=== PATIENT | female | born 1980 | race Caucasian/White ===

== ENCOUNTER 2024-01-06 21:16 | Emergency (ER) | payer OTHER, SELFPAY ==
[2024-01-06 21:18] VITALS: BP 126/86
--- NOTE | 2024-01-06 21:51 | ED.GENMED ---
History of Present Illness
General
Chief Complaint: Musculo-Skeletal Complaint
Time Seen by Provider: 01/06/24 21:31
History of Present Illness
History of Present Illness:
43-year-old female presents to the emergency department for evaluation of intractable bilateral neck pain ongoing for the past 7 days. Pain was gradual in onset and denies any traumatic injuries provoking the pain. She saw an warehouse specialist
today after having been treated with a steroid taper by urgent care the week prior, orthopedics recommended splinting versus follow-up as well as an outpatient MRI. She presents to the ER hopeful to obtain an MRI. She reports paresthesias of
bilateral upper extremities. No chest pain or shortness of breath.
Review of Systems
Review of Systems
Allergies reviewed?: Yes
All Other Systems: ROS reviewed and negative except as documented in HPI and ROS
Phy Exam
Physical Exam
Physical Exam:
GEN: Well appearing, NAD, WDWN
HEENT: Oral mucosa moist, no scleral icterus. No midline cervical spine tenderness. Normal neck range of motion bilaterally however patient clearly in pain throughout this exam
Cardiac: Regular rate
Lung: No respiratory distress, no tachypnea
MSK: No gross deformity or injuries
Skin: Good color, no pallor or jaundice, no rashes
Neuro: AO x3, moves all extremities freely. Bilateral upper extremity strength is 4 out of 5 in all delarosa, pain is likely the limiting factor. Sensation intact globally
Psych: Calm, cooperative
Course
Orders/Labs/Results
Orders:
Orders
01/06/24 21:50
Acetaminophen [Tylenol] 1,000 mg PO NOW STA
Morphine Sulfate 4 mg IM NOW STA
Vital Signs
Initial and Last Documented VS:
Initial Vital Signs
Temp Pulse Resp BP Pulse Ox
97.7 F 86 24 126/86 100
01/06/24 21:18 01/06/24 21:18 01/06/24 21:18 01/06/24 21:18 01/06/24 21:18
Last Documented Vital Signs
Temp Pulse Resp BP Pulse Ox
97.7 F 77 16 123/85 98
01/06/24 21:18 01/06/24 22:55 01/06/24 22:55 01/06/24 22:55 01/06/24 22:55
MDM/Problems Addressed
MDM/Problems Addressed:
Patient's pain is markedly improved with opiate analgesics. Will prescribe small amount of further opiates and recommend she follow-up for outpatient MRI as planned. Close outpatient spine follow-up encouraged
*Critical Care Note
Total Time (30-74mins, 75-104mins- exclusive of procedures): Not Applicable
ED Attending Note
-
Portions of this chart may have been created with voice recognition software.� Occasional wrong word or��sound alike� substitutions may have occurred due to the inherent limitations of voice recognition software.
Discharge Plan
Departure
Patient Disposition: Home (Routine Discharge)
Date of Disposition: 01/06/24
Time of Disposition: 22:42
Patient with high blood pressure during this ER visit?: No
Discharge Problem:
Cervical radiculopathy
Instructions: Herniated Disc (DC)
Prescriptions:
New
oxycodone 5 mg tablet
5 mg PO Q8H PRN (Reason: Pain) Qty: 10 0RF
Referrals:
Hui Kay MD [Family Provider] -
Nicolas Logan MD [Active] -
Activity Restrictions/Additional Instructions:
Schedule the MRI as planned
Follow up with the above listed pain/spine specialsit
Interventions
Interventions:
*Risk Screen - Suicide Last Done: 01/06/24 21:18
*General Assessment Last Done: 01/06/24 21:51
*Neglect/Abuse Screening Last Done: 01/06/24 21:18
ED- Fall Risk Assessment Last Done: 01/06/24 21:51
*ED COVID-19 Vaccine History Last Done: 01/06/24 21:51
*Nursing Disposition Last Done: 01/06/24 22:55
ED-Musculoskeletal Assessment Last Done: 01/06/24 21:51
Discharge Date and Time
Discharge Date/Time: 01/06/24 22:55
Print Language: MALAGASY
[2024-01-06] MEDS: TYLENOL 1000 MG PO (22:01)
[2024-01-06] MEDS: MORPHINE SULFATE 4 MG IM (22:02)
[2024-01-06 22:55] VITALS: BP 123/85
== END 2024-01-06 22:55 | disposition home or self-care (01) ==
LOC: EMR 21:16
PROVIDERS: EMERGENCY PHYSICIAN Emergency Medicine; FAMILY PHYSICIAN Internal Medicine
DX: M54.12 Radiculopathy, cervical region (principal)
CPT/HCPCS: 99284; 96372

== ENCOUNTER 2024-01-09 03:43 | Inpatient (IN) | payer OTHER, SELFPAY ==
[2024-01-08 21:24] VITALS: BP 155/106
[2024-01-08 21:57] LABS: % Basophils 0.4 % (0-2); % Eosinophils 0.5 % (0-6); % Immature Granulocytes 0.3 % (0-0.5); % Lymphocytes 34.7 % (20.5-51.1); % Monocytes 7.8 % (1.7-9.3); % Neutrophils 56.3 % (42.2-75.2); Absolute Basophils 0.1 10^3/uL (0-0.2); Absolute Eosinophils 0.1 10^3/uL (0-0.7); Absolute Lymphocytes 4.3 10^3/uL (1.2-3.4); Hematocrit 40.4 % (37.0-47.0); Hemoglobin 14.2 g/dL (12.0-16.0); Mean Corp Hgb Conc. 35.1 g/dL (33.0-37.0); Mean Corpuscular Hgb 30.8 pg (27.0-31.0); Mean Corpuscular Volume 87.6 fL (81.0-99.0); Mean Platelet Volume 8.9 fL (7.4-10.4); Nucleated Red Blood Cells % 0 %; Platelet Count 441 10^3/uL (130-400); Red Blood Cell Count 4.61 10^6/uL (4.20-5.40); Red Cell Dist. Width 12.9 % (11.5-14.5); White Blood Cell Count 12.4 10^3/uL (4.8-10.8)
[2024-01-08 22:10] LABS: COVID-19 Antigen Negative (Negative)
[2024-01-08 22:11] LABS: ALT (SGPT) 20 U/L (0-35); AST (SGOT) 27 U/L (14-36); Alkaline Phosphatase 50 U/L (38-126); Blood Urea Nitrogen 14 mg/dl (7-17); Calcium 10.3 mg/dl (8.4-10.2); Carbon Dioxide 30 mmol/L (22-30); Chloride 101 mmol/L (98-107); Glucose 89 mg/dl (70-99); Potassium 3.8 mmol/L (3.5-5.1); Sodium 139 mmol/L (135-145); Total Bilirubin 0.5 mg/dl (0.2-1.3); Total Protein 7.6 g/dl (6.3-8.2); eGFR > 60.00
--- NOTE | 2024-01-08 22:57 | ED.GENMED ---
History of Present Illness
<LILO Diamond - Last Filed: 01/09/24 02:07>
General
Chief Complaint: Musculo-Skeletal Complaint
Source: patient and spouse
Exam Limitations: none
Time Seen by Provider: 01/08/24 22:55
History of Present Illness
History of Present Illness:
This is a 43 year old female that comes in with c/o cough and SOB. Patient was here last night with neck pain and given Oxycodone. Patient had an MRI of her neck today. States that now she can't eat or drink and her states that she can't
get dressed. States that know she developed a cough and is SOB. Denies any fever, chills, chest pain, abd pain, nausea, vomiting, diarrhea, headache, dizziness, urinary burning.
Past History
<LILO Diamond - Last Filed: 01/09/24 02:07>
Past History
ED Past Medical History: Other (Neck pain)
ED Past Surgical History: None
Social History
Tobacco: Smoker
Alcohol: Occasional
Personal:
Living: with family
Review of Systems
<LILO Diamond - Last Filed: 01/09/24 02:07>
Review of Systems
All Other Systems: ROS reviewed and negative except as documented in HPI and ROS
Constitutional: Reports no symptoms; Denies fever or chills
EENT: Reports no symptoms
Respiratory: Reports cough and trouble breathing
Cardiac: Reports no symptoms
ABD/GI: Reports no symptoms; Denies abdominal pain, nausea, vomiting or diarrhea
: Reports no symptoms; Denies dysuria, frequency or urgency
Musculoskeletal: Reports no symptoms
Skin: Reports no symptoms
Neurological: Reports no symptoms; Denies dizzy or headache
Psychiatric: Reports no symptoms
Phy Exam
<LILO Diamond - Last Filed: 01/09/24 02:07>
General Physical Exam
General Presentation: no apparent distress
General age: appears stated age
General Skin: warm and dry
General Habitus: normal
General Mental: alert
General Hydration: appears well hydrated
ENT Exam
ENT Exam: TM's normal, pharynx normal and neck supple
Eye Exam
Eye Exam: EOMI
Cardiovascular Exam
Cardiovascular Exam: regular rate/rhythm, no edema, no murmur and normal peripheral pulses
Pulmonary Exam
Pulmonary Exam: no respiratory distress, no rales, chest non tender, no rhonchi, no wheezing and other (Moist cough noted. Referred breath sounds, with occasional clearing. )
Gastrointestinal Exam
Gastrointestinal Exam: normal bowel sounds, non tender, soft, no organomegaly, no pulsatile mass and non distended
Musculoskeletal Exam
Musculoskeletal Exam: full ROM and no edema
Skin Exam
Skin Exam: normal color, warm/dry, no rash and no petechia
Psychiatric Exam
Psychiatric Exam: normal mood/affect
Course
<LILO Diamond - Last Filed: 01/09/24 02:07>
Orders/Labs/Results
Orders:
Orders
01/08/24 21:30
EKG [Electrocardiogram (*1)] Urgent
Reason for Study: Other
Other Reason for Exam: neck pain
EKG- Treatment ONCE
01/08/24 21:31
Chest [CR Chest - 2 Views ] Urgent
Comment:
Reason For Exam: cough
01/08/24 21:51
CBC/With Diff [Complete Blood Count/With Diff] Urgent
CMP [Comprehensive Metabolic Panel] Urgent
COVID-19 Antigen Urgent
Source: Nasal Swab
HCG, Serum Qualitative Screen Urgent
Comment: ADDED
01/09/24 01:04
CT Chest With Iv Contrast Urgent
Comment:
Reason For Exam: L Chest Mass, Dyspnea
Albuterol Nebs [Ventolin Nebules] 2.5 mg INH R NOW STA
01/09/24 01:05
0.9% Sodium Chloride 1000 ml [Nss] 1,000 ml IV BOLUS
01/09/24 01:08
Test Result ONCE
01/09/24 01:09
Add On- LAB Urgent
Tests Added?: serum qual
01/09/24 01:12
CT Head W/o Iv Contrast Urgent
Comment:
Reason For Exam: Ataxia
01/09/24 02:00
Flush (0.9% Sodium Chloride) [Flush (Nss)] See Dose Instructions IV PER PROTOCOL
01/09/24 02:26
Add On- LAB Urgent
Tests Added?: Pro-BNP
Troponin I Urgent
Abnormal Lab Results
01/08/24
21:51
WBC 12.4 H 10^3/uL
(4.8-10.8)
Plt Count 441 H 10^3/uL
(130-400)
Absolute Neuts (auto) 7.0 H 10^3/uL
(1.4-6.5)
Absolute Lymphs (auto) 4.3 H 10^3/uL
(1.2-3.4)
Absolute Monos (auto) 1.0 H 10^3/uL
(0.1-0.6)
Calcium 10.3 H mg/dl
(8.4-10.2)
01/08/24 21:51
01/08/24 21:51
Leukocytosis, Plt slightly elevated. COVID negative.
Vital Signs
Initial and Last Documented VS:
Initial Vital Signs
Temp Pulse Resp BP Pulse Ox
97.6 F 98 18 155/106 90
01/08/24 21:24 01/08/24 21:24 01/08/24 21:24 01/08/24 21:24 01/08/24 21:24
Last Documented Vital Signs
Temp Pulse Resp BP Pulse Ox
97.6 F 88 20 133/93 91
01/09/24 00:39 01/09/24 01:06 01/09/24 00:00 01/09/24 00:14 01/09/24 01:35
<Tamia Hamilton, - Last Filed: 01/09/24 02:40>
Orders/Labs/Results
Orders:
Orders
01/08/24 21:30
EKG [Electrocardiogram (*1)] Urgent
Reason for Study: Other
Other Reason for Exam: neck pain
EKG- Treatment ONCE
01/08/24 21:31
Chest [CR Chest - 2 Views ] Urgent
Comment:
Reason For Exam: cough
01/08/24 21:51
CBC/With Diff [Complete Blood Count/With Diff] Urgent
CMP [Comprehensive Metabolic Panel] Urgent
COVID-19 Antigen Urgent
Source: Nasal Swab
HCG, Serum Qualitative Screen Urgent
Comment: ADDED
01/09/24 01:04
CT Chest With Iv Contrast Urgent
Comment:
Reason For Exam: L Chest Mass, Dyspnea
Albuterol Nebs [Ventolin Nebules] 2.5 mg INH R NOW STA
01/09/24 01:05
0.9% Sodium Chloride 1000 ml [Nss] 1,000 ml IV BOLUS
01/09/24 01:08
Test Result ONCE
01/09/24 01:09
Add On- LAB Urgent
Tests Added?: serum qual
01/09/24 01:12
CT Head W/o Iv Contrast Urgent
Comment:
Reason For Exam: Ataxia
01/09/24 02:00
Flush (0.9% Sodium Chloride) [Flush (Nss)] See Dose Instructions IV PER PROTOCOL
01/09/24 02:26
Add On- LAB Urgent
Tests Added?: Pro-BNP
Troponin I Urgent
Abnormal Lab Results
01/08/24
21:51
WBC 12.4 H 10^3/uL
(4.8-10.8)
Plt Count 441 H 10^3/uL
(130-400)
Absolute Neuts (auto) 7.0 H 10^3/uL
(1.4-6.5)
Absolute Lymphs (auto) 4.3 H 10^3/uL
(1.2-3.4)
Absolute Monos (auto) 1.0 H 10^3/uL
(0.1-0.6)
Calcium 10.3 H mg/dl
(8.4-10.2)
01/08/24 21:51
01/08/24 21:51
Vital Signs
Initial and Last Documented VS:
Initial Vital Signs
Temp Pulse Resp BP Pulse Ox
97.6 F 98 18 155/106 90
01/08/24 21:24 01/08/24 21:24 01/08/24 21:24 01/08/24 21:24 01/08/24 21:24
Last Documented Vital Signs
Temp Pulse Resp BP Pulse Ox
97.6 F 88 20 133/93 91
01/09/24 00:39 01/09/24 01:06 01/09/24 00:00 01/09/24 00:14 01/09/24 01:35
<LILO Diamond - Last Filed: 01/09/24 02:07>
MDM/Problems Addressed
Differential Diagnosis Includes:
COVID, PNA, Lung mass
MDM/Problems Addressed:
This is a 43 year old female that comes in with wih c/o cough and SOB. states that she was here last night with neck pain and they had the MRI done today. States that she is not able to eat or drink and that she can hardly get
herself dressed. States that now she has a cough and is SOB.
Will get labs and chest x-ray.
Back into see patient and . Explained that she has a lung mass on the left at the left heart boarder. Patient is hypoxic at 89% and place on Oxygen. Will admit patient. Hospitalist notified.
Chronic conditions affecting care:
NA
Acute Exacerbation and/or Progression of Chronic Illness:
NA
<LILO Diamond - Last Filed: 01/09/24 02:07>
*Radiology
Radiology exam reviewed: radiology read reviewed (Chest-Rounded mass like opacity off the left superior margin of the hear, in the region of the lingula. No preivous examinations are available at this institution. If the patent has had previous
imaging of the chest elsewhere, correlation with those exams may be useful. Consider a follow up CT ) and all reviewed NAD by ED Provider (Chest cont- of the chest with intravenous contrast. )
*Pulse Oximetry
Patient hypoxic: yes
Comment: 89% on room air
*EKG
Interpreted by ED Provider?: Yes
Heart Rate: 87
Rate: normal
Rhythm: sinus
[place]: normal axis
Interval: normal interval
QRS Pattern: normal QRS
Ischemia: non-specific ST changes (I, II, V4, V5, V6)
*Overnight Caregiver Interpretation
Rate: normal
Heart Rate: 96
Rhythm: sinus
*Critical Care Note
Total Time (30-74mins, 75-104mins- exclusive of procedures): Not Applicable
ED Attending Note
<LILO Diamond - Last Filed: 01/09/24 02:07>
-
Portions of this chart may have been created with voice recognition software.� Occasional wrong word or��sound alike� substitutions may have occurred due to the inherent limitations of voice recognition software.
<Tamia Hamilton, DO - Last Filed: 01/09/24 02:40>
ED Attending Note
Patient seen and examined by attending physician: Yes
ED Attending Note:
43-year-old woman evaluated in the ED 2 days ago with neck pain, diagnosed with cervical radiculopathy, started on oral steroids returns tonight with continued neck pain with complaints of shortness of breath, intermittent cough that began today.
Noted to be hypoxic initially with pulse ox in the high 80s, low 90s. Improved with nasal cannula oxygen.
Chest x-ray shows large rounded masslike opacity left superior margin of the heart. No evidence of pleural effusion nor CHF.
Labs show mildly elevated white blood cell count which can be attributed to recent oral steroids. Chemistries are unremarkable.
Admitted to hospitalist service for further evaluation of pulmonary mass lesion, concerning for malignancy.
Patient has been evaluated by Dr. Chi, CT head as well as CT of the chest ordered by hospitalist and upon returning from CAT scan patient noted to have recurrent hypoxia, nasal cannula oxygen transition to nonrebreather mask and I been summoned to
the bedside.
43-year-old woman appears her stated age. She is awake and alert, mentating normally, answering questions appropriately.
HEENT: Oral mucosa is moist. No neck vein distention.
Heart is regular rhythm, mildly tachycardic at 110.
Lungs: Very minimal resting tachypnea but overall appears comfortable. Few scattered rhonchi upper lung delarosa otherwise clear to auscultation.
Abdomen is soft and nontender.
Extremities without clubbing or cyanosis no edema. Peripheral pulses are full and equal.
Skin: Moderately tanned sun exposed skin. There is no erythema, no urticaria, no swelling.
Neuro: Awake alert and oriented x 3. No focal neurodeficits.
Hypoxia has improved with nonrebreather mask. Hovers around 89 to 90%.
Overall patient appears comfortable, without significant respiratory distress, able to speak in full sentences and mentating normally.
Will initiate end-tidal CO2. Will check ABG on nonrebreather mask.
Will check BNP, troponin.
CT of the chest results are pending.
Depending on ABG results may consider initiation of BiPAP to improve oxygenation but at this point no indication for urgent intubation.
Discharge Plan
Departure
Patient Disposition: Admit
Date of Disposition: 01/09/24
Time of Disposition: 00:13
Admit to: Telemetry
Presentation/result/management discussed w/ accepting MD/DO: Hospitalist
Patient with high blood pressure during this ER visit?: Yes
Covid-19: Negative COVID-19
Discharge Problem:
Hypoxia, Mass of left lung
Prescriptions:
No Action
oxycodone 5 mg tablet
5 mg PO Q8H PRN (Reason: Pain) Qty: 10 0RF
Referrals:
Hui Kay MD [Family Provider] -
Interventions
Interventions:
*Risk Screen - Suicide Last Done: 01/09/24 00:46
*Neglect/Abuse Screening Last Done: 01/09/24 00:46
ED-Musculoskeletal Assessment Last Done: 01/09/24 01:05
Discharge Date and Time
Print Language: SWEDISH
[2024-01-09] VITALS (24 sets, daily range): BP systolic 103–144; BP diastolic 62–93; PULSE 2–101; BMI 20.3; BMI 22.9
[2024-01-09] MEDS: VENTOLIN NEBULES 2.5 MG INH (01:37)
[2024-01-09] MEDS: NSS 1000 IV (01:38)
[2024-01-09 01:43] LABS: HCG, Serum Qualitative Screen Negative
--- NOTE | 2024-01-09 02:22 | EDRN ---
Delayed entry d/t patient care. Patient was brought back from CT by veterinary laboratory technician Sanjuanita stating that she was saying that she could not breathe. Patient was very restless in bed stating that she needed to stand up. Patient was 64% on 3L, prior to the study
patient's o2 was about 96% on 3L. Dr. Hamilton and Shikha NAGY at bedside. Respiratory aware. Verbal ordered by Dr. Hamilton for bipap and ABG.
[2024-01-09 02:39] LABS: B.E. -2.4 mmol/L; HCO3 24.6 mmol/L (21-28); O2 Saturation % 93.4 % (94-98); PCO2 50 mmHg (32-35); PO2 69 mmHg (83-108)
[2024-01-09 03:03] LABS: NT-proBNP 36.6 pg/ml; Troponin I < 0.012 ng/ml
--- NOTE | 2024-01-09 03:12 | HPS.HSE ---
Family Physician
-
Family Physician: Hui Kay
Chief Complaint
-
Neck Pain, Arm Pain, Cough / SOB
History of Present Illness
Patient is a 43y F with no significant PMH who presents to ED complaining of cough and SOB today. History obtained from patient and her at the bedside. Patient has been complaining of neck discomfort with pain into both arms for the
past 1 1/2 weeks. She was seen at Urgent Care and by Orthopedics who suspected cervical disc disease as the etiology of her symptoms. Patient reports that she has had difficulty swallowing - feeling that food is getting stuck in the upper throat.
She was placed on a Medrol Pack for her symptoms - with no significant improvement thus far.
Today, patient started to have 'junky' sounding - but very weak cough. She was unable to cough 'well' as this cause increase in neck / back pain. Patient stated that she was developing SOB and presented today to the ED for further evaluation.
CXR was done in the ED which revealed L chest mass of unclear etiology.
Patient went for CT and was more SOB / in distress following this study. Patient was lying flat for CT of the chest and head.
Patient was placed on NRB mask in the ED with gradual improvement in subjective dyspnea, distress and hypoxemia.
ABGs were obtained and she was placed on BiPAP.
Currently she is resting more comfortably in the ED with BiPAP mask in place.
Patient has no significant medical history.
She had a benign lump removed from the L breast / chest wall in her youth. No other surgeries.
She takes no chronic medications.
She is a smoker.
Medical History
Past Medical History
Past Medical History: Reports None
Past Surgical History: Reports Other
Additional Past Surgical History:
L Chest Wall Benign Mass Excised
Social History
Tobacco: Smoker (Current every day smoker. Approx 20 pack years total.)
Alcohol: Occasional
Drug: None
Personal:
Family History
Family History: Other (Patient reports no known family history of significant health issues.)
Allergies / Home Medications
Allergies reflects when Allergies were last updated in [facility].
Home Medications with original date entered in [facility]
Allergy/Medication List:
Allergies
Allergy/AdvReac Type Severity Reaction Status Date / Time
No Known Allergies Allergy Verified 01/08/24 21:29
Home Medications
No Meds [No Current Medications] 01/09/24
Review of Systems
-
History Source: Patient and Family
A 12 point ROS was completed and negative except as noted: Yes
Constitutional: Reports Fatigue; Denies Fever or Chills
EENT: Reports Other (Difficulty swallowing. Throat discomfort.); Denies Sore Throat
Respiratory: Reports Cough and Trouble Breathing; Denies Hemoptysis
Cardiac: Denies Chest Pain, Diaphoresis or Palpitations
Abdomen/GI: Denies Abdominal Pain, Nausea, Vomiting or Diarrhea
: Denies Dysuria, Frequency or Flank Pain
Musculoskeletal: Reports Other (Neck Pain / Upper Back Pain / Bilateral Arm Pain)
Neurological: Reports Dizzy and Weakness; Denies Headache
Psych: Denies Depression or Anxiety
Physical Exam
Vital Signs
Vital Signs
Temp Pulse Resp BP Pulse Ox
97.6 F 101 23 144/86 93
01/09/24 00:39 01/09/24 02:34 01/09/24 02:34 01/09/24 02:34 01/09/24 02:34
Physical Exam
General: Other (Thin 43y F in mild to moderate distress due to dyspnea / discomfort.)
HEENT: Moist mucous membranes and PERRLA
Respiratory: Other (Coarse upper airway sounds with weak / ineffectual cough. No wheezing.)
Cardiac: S1/S2 and Tachycardia; No Murmur
GI: Soft, Non Tender, Non Distended and Normal Bowel Sounds
Musculoskeletal: No Clubbing, No Cyanosis and No Edema
Neuro: AO x 3
Laboratory Results
-
01/08/24 21:51
01/08/24 21:51
Laboratory Results
pH 7.30 (7.35-7.45) L 01/09/24 02:34
pCO2 50 mmHg (32-35) H 01/09/24 02:34
pO2 69 mmHg (83-108) L 01/09/24 02:34
HCO3 24.6 mmol/L (21-28) 01/09/24 02:34
Total Bilirubin 0.5 mg/dl (0.2-1.3) 01/08/24 21:51
AST 27 U/L (14-36) 01/08/24 21:51
ALT 20 U/L (0-35) 01/08/24 21:51
Alkaline Phosphatase 50 U/L (38-126) 01/08/24 21:51
Troponin I < 0.012 ng/ml 01/09/24 02:34
Impression/Plan
-
A/P: Patient is a 43y F with no significant PMH who presents to ED complaining of 1 1/2 weeks of neck and back pain and 24 hours of cough and SOB.
Mediastinal Mass
Acute Hypoxemic and Hypercapnic Respiratory Failure secondary to the above
- Admit to ICU for further evaluation and treatment.
- Respiratory status improved on BiPAP.
- Follow clinically. Repeat ABGs in the AM.
- Continue supportive care with O2, nebs, pain control, etc.
- Pulmonary evaluation for additional recommendations.
- Pulmonary / IR evaluations to consider best approach for tissue biopsy of mediastinal lesion.
- Oncology evaluation for further treatment plan.
- ? lymphoma / thymoma / etc.
- Follow for any new / worsening symptoms.
DVT Prophylaxis: SCDs
Code Status: Full
--- NOTE | 2024-01-09 04:16 | PTCARENOTE ---
rec'd patient from ER. oriented x3. on bipap 10/5 15L. diminished breath sounds. c/o CP with coughing and neck pain. awaiting chest CT results. SR on monitor. NPO. labs sent. call epperson within reach, care ongoing.
[2024-01-09 04:22] LABS: Hematocrit 37.7 % (37.0-47.0); Hemoglobin 13.4 g/dL (12.0-16.0); Mean Corp Hgb Conc. 35.5 g/dL (33.0-37.0); Mean Corpuscular Hgb 30.9 pg (27.0-31.0); Mean Corpuscular Volume 86.9 fL (81.0-99.0); Platelet Count 396 10^3/uL (130-400); Red Blood Cell Count 4.34 10^6/uL (4.20-5.40); Red Cell Dist. Width 12.6 % (11.5-14.5)
[2024-01-09 04:28] LABS: INR 1.06; PT 13.8 Sec (11.4-14.6)
[2024-01-09 04:29] LABS: APTT 24.7 Sec (23.4-35.0)
[2024-01-09 05:02] LABS: B.E. 2.9 mmol/L; HCO3 27.9 mmol/L (21-28); O2 Saturation % 99.1 % (94-98); PCO2 43 mmHg (32-35); PO2 106 mmHg (83-108); pH 7.42 (7.35-7.45)
[2024-01-09 05:20] LABS: Blood Urea Nitrogen 14 mg/dl (7-17); Calcium 9.8 mg/dl (8.4-10.2); Carbon Dioxide 27 mmol/L (22-30); Chloride 103 mmol/L (98-107); Estimated Creatinine Clearance 87 ml/min; Glucose 119 mg/dl (70-99); Magnesium 1.9 mg/dl (1.6-2.3); Potassium 4.3 mmol/L (3.5-5.1); Sodium 137 mmol/L (135-145); eGFR > 60.00
[2024-01-09 05:41] LABS: Phosphorus 4.4 mg/dl (2.5-4.5)
[2024-01-09] MEDS: DUONEB 3 ML INH ×4 (07:50→19:52)
--- NOTE | 2024-01-09 08:00 | PTCARENOTE ---
Received pt awake and alert.Conversation is appropriate.c/o intermittent neck pain.Declines offer of pain medication at this time.c/o bl arm and hand weakness with associated numbness.BL hand grasp and arm strength weakness noted.c/o difficulty with
fine motor bl hands.c/o difficulty swallowing.Frequent throat clearing noted with a weak cough.SR noted.Decreased breath sounds throughout.POX 92-95% 4l NC.750 ml on IS.Pt encouraged to cough and deep breath.NPO.No BM.Voided blood tinged urine.+
menses.Tampon removed by patient.Plan of care discussed with pt.
--- NOTE | 2024-01-09 08:50 | CON.INTV ---
Addendum entered and electronically signed by Wally Reich MD 01/09/24 16:28:
Of note, I spoke with radiology regarding her uploaded cervical spine MRI study, and there is no evidence for spinal canal stenosis, no neuroforaminal stenosis and no significant disc herniation. There are small disc bulges at C5-C6, and C6-C7.
Loss of motion artifact.
Original Note:
Consultation
Consultation Request
Date/Time Consultation Requested: 01/09/2024
Date/Time Consultation Performed: 01/09/2024 - 08
Requesting Provider: Dr. Herrera
Performing Provider: Dr. Reich
Reason for Consultation: Respiratory failure with hypoxia/hypercapnia
Medical History
-
Chief Complaint: Cough/SOB + neck pain
History of Present Illness:
43-year-old female with a past medical history of tobacco use disorder who presents with neck pain, generalized weakness, shortness of breath and cough. She says she has been fatigued for several weeks, denying any preceding illness. Her neck pain
with hand numbness began about 1-2 weeks ago. She saw an orthopedic doctor few days ago after she was treated with a steroid taper from an urgent care about 1 week prior, and apparently orthopedic recommended splinting with an outpatient MRI. MRI
was done on 12/29/2023. Patient says she has been having trouble swallowing food/water and medications. She believes she may have choked on a muscle relaxer yesterday. In the ER she was afebrile to 97.6 �F, pulse rate 98, respiratory rate 18, BP
155/106 and saturating 90% on room air. Labs showed leukocytosis to 12.4, platelets 441, ABG showed pH 7.3, pCO2 50. COVID antigen negative. CXR showed a rounded masslike opacity of the left superior margin of the heart. Chest CT with IV
contrast was obtained showing a 4.5 x 2.5 x 4.6 cm lesion along the anterior pericardium with posterior peripheral calcification. There is also bibasilar atelectasis (L >R) with possible mucous plugging in the right lower lobe. Also right middle
lobe atelectasis. CT head showed no acute intracranial abnormality. Patient given albuterol in the ER +1 L NS 0.9%. After patient returned to the ER from CAT scan, she was more hypoxic. She was placed onto nonrebreather mask and ABG obtained
showing hypercapnia. BiPAP started onto the patient and she was transferred to the ICU for further care.
Pt seen and evaluated this AM. Still having hand numbness, shortness of breath and cough - producing phlegm, mora colored. She does report that her breathing and coughing is better. Currently pulling 750cc on IS. She is on 4L/min. She denies
chest pain, headache, abdominal pain, fevers or chills.
PMHx: Tobacco use disorder, mild cervical degenerative disc disease
PSHx: Noncontributory
Past Medical History
Past Medical History: Other (Above as per HPI)
Past Surgical History: Other (Above as per HPI)
Social History
Tobacco: Smoker (5-7 cigarettes a day for the last 'several years')
Alcohol: Occasional
Drug: None
Personal:
Living: With Family
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
Family History
Family History: Reviewed & Not Pertinent
Allergies / Home Medications
Allergies
Allergy/AdvReac Type Severity Reaction Status Date / Time
No Known Allergies Allergy Verified 01/08/24 21:29
Home Medications
�Medication �Instructions �Recorded �Confirmed �Last Taken �Type
No Meds [No Current Medications] 01/09/24 01/09/24 Unknown History
Review of Systems
-
History Source: Patient
All other systems: Negative unless noted
Vitals / Labs / Diagnostic Testing
Vital Signs
Temp Pulse Resp BP Pulse Ox
98.4 F 95 14 104/70 91
01/09/24 07:45 01/09/24 07:59 01/09/24 07:59 01/09/24 06:00 01/09/24 07:59
Lab Data
01/09/24 03:57
01/09/24 03:56
Laboratory Results
01/09/24 01/09/24 01/09/24
02:34 03:56 04:54
PT 13.8
INR 1.06
APTT 24.7
pH 7.30 L 7.42
pCO2 50 H 43 H
pO2 69 L 106
HCO3 24.6 27.9
O2 Delivery Level
Diagnostic Testing:
Physical Exam
-
HEENT: Normocephalic and Anicteric
Cardiovascular: S1/S2 and Peripheral Edema (Negative)
Respiratory: Wheeze (Negative), Rales (Negative), Rhonchi (Negative) and Non-Labored Respirations
GI: Soft, Non Distended, Non Tender and Normal Bowel Sounds
Neurology: Awake, Alert, Tremors (Negative), Other (Hip Hop Dance Instructor strength is 5/5 bilaterally, feet dorsi-/plantar-flexion is 5/5 bilaterally; normal tongue protrusion and lateral movement of tongue, normal shoulder shrug, normal H test) and Other (Normal
sensation to light touch on her lower extremities and upper extremities)
Skin: Warm and Dry
General: Respiratory Distress (Negative), Comfortable, Chills (Negative) and Sweats (Negative)
Assessment
-
Assessment: 43-year-old female with a past medical history of tobacco use disorder who presents with neck pain, generalized weakness, shortness of breath and cough. She says she has been fatigued for several weeks, denying any preceding illness.
Her neck pain with hand numbness began about 1-2 weeks ago. She saw an orthopedic doctor few days ago after she was treated with a steroid taper from an urgent care about 1 week prior, and apparently orthopedic recommended splinting with an
outpatient MRI. MRI was done on 12/29/2023. Patient says she has been having trouble swallowing food/water and medications. She believes she may have choked on a muscle relaxer yesterday. In the ER she was afebrile to 97.6 �F, pulse rate 98,
respiratory rate 18, BP 155/106 and saturating 90% on room air. Labs showed leukocytosis to 12.4, platelets 441, ABG showed pH 7.3, pCO2 50. COVID antigen negative. CXR showed a rounded masslike opacity of the left superior margin of the heart.
Chest CT with IV contrast was obtained showing a 4.5 x 2.5 x 4.6 cm lesion along the anterior pericardium with posterior peripheral calcification. There is also bibasilar atelectasis (L >R) with possible mucous plugging in the right lower lobe.
Also right middle lobe atelectasis. CT head showed no acute intracranial abnormality. Patient given albuterol in the ER +1 L NS 0.9%. After patient returned to the ER from CAT scan, she was more hypoxic. She was placed onto nonrebreather mask
and ABG obtained showing hypercapnia. BiPAP started onto the patient and she was transferred to the ICU for further care.
Chronic conditions HEPATOLOGIST: Tobacco use disorder, mild cervical degenerative disc disease
Impression:
#Left upper lobe mass along the pericardium (4.5 x 2.5 x 4.6 cm with posterior peripheral calcification, suspicious for lymphoma vs primary bronchogenic carcinoma vs germ cell tumor; less likely cyst)
#Acute respiratory failure with hypoxia + hypercapnia
#Acute cough with bibasilar mucoid/secretion impaction with bibasilar + RML atelectasis, due to aspiration pneumonia
#Generalized weakness with bilateral hand numbness (symptoms began about 1 week ago) - unclear cause, possibly due to mass effect from TONE mass vs worsening cervical radiculopathy
#Tobacco use disorder (smokes 5-7 cigarettes per day for 'few years')
#Reported history of cervical radiculopathy
Plan:
- Continue supplemental O2 and maintain SpO2 >90-94%
- Currently on 4L/min NC
- Check NIF --> -19qfE1L, likely due to generalized weakness (check TSH with reflex to free T4)
- Apply EtCO2 to monitor for worsening hypercapnia
- Trend VBG to assure pH and pCO2 are stable, otherwise place back onto BiPAP
- prn nebulized bronchodilators + DuoNebs QID
- Incentive spirometer encouraged
- Given her acute cough that she says started yesterday, and she reports that she has been having great difficulty eating/drinking and taking medications, she likely aspirated. This is further supported by her DIRECTOR WOMEN stevo today, which shows that she
is at high aspiration risk and is pending videofluoroscopic swallow study
- Start Unasyn as she has evidence of multifocal bronchus obstruction from aspiration, and has leukocytosis with SOB, hypoxia and cough - this is concerning for pneumonia/CAP
- Check legionella and Strep PNA urine antigens and sputum Cx, check procal for trending power
- Given her CT chest shows secretions/mucous in her lower lobes and bibasilar/RML atelectasis, I will start Abx with Unasyn, and plan for 7-10 days
- Administer mucinex, DuoNebs and mucomyst
- Nicotine patch
- Oncology consulted - recs appreciated
- IR consulted for TONE lung mass biopsy
- CT surgery also consulted as TONE is very close to pericardium and perhaps a thoracotomy vs mediastinoscopy would be better to evaluate this lesion and obtain tissue
- Maintain MAP>65
- Replete electrolytes with K>4, Mg>2
- Maintain euglycemia with goal BG 140-180
- DVT ppx: LMWH
Total time spent today was 75 minutes for this encounter. Time includes reviewing laboratory test/imaging results, reviewing pertinent medical records, obtaining and reviewing medical history, performing an appropriate exam, ordering medications,
tests and procedures. Time also includes documentation of this encounter, coordinating patient care and communicating with other healthcare professionals. Total time does not include separately billed tests performed on this date of service.
Data:
CT chest with IV contrast 01/09/2024: Mildly motion degraded examination
1. There is a 4.5 x 2.5 x 4.6 cm lesion along the anterior pericardium which demonstrates posterior peripheral calcification. This demonstrates Hounsfield units more consistent with a soft tissue lesion rather than cyst. Differential includes a
pleural-based lesion, colonic lesion, lymphoma or germ cell tumor. Findings are less likely atypical pericardial cyst. There is no mediastinal, hilar or axillary lymphadenopathy.
2. Left greater than right bibasilar atelectasis with questionable mucous plugging in the right lower lobe. Right middle lobe atelectasis.
--- NOTE | 2024-01-09 11:22 | CON.ONC ---
Impression
Impression
Mass associated with pericardium with calcification
Chronic cough likely associated with mass effect
Leukocytosis
MRI of the spine unremarkable
Plan
Plan
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
Thoracic surgery to further evaluate as malignancy is in the differential would require biopsy if felt appropriate
Cervical MRI reviewed without significant findings other than mild degenerative disease
Will follow
Patient History
History of Present Illness
Patient is a 43-year-old female with progressive symptoms of cough and shortness of breath the presented to the emergency room and was discharged now has subsequently returned after undergoing an outpatient CT scan which revealed evidence of a 3.9 x
3.4 by 4.6 anterior mediastinal mass. Subsequent MRI has been performed and loaded into the system for review. Patient continues with same symptoms. She denies symptoms of myasthenia. She has had no chest painor palpitations. She denies
undesired weight loss or fevers. Laboratory studies reveal evidence of mild leukocytosis both neutrophils and lymphocytes. Echocardiogram without significant abnormality.
Past-Medical/Surgical History
No significant past medical history
Social history tobacco
Smoker
Occasional alcohol
Living with family
Patient Medication
�Medication �Instructions �Recorded �Confirmed �Last Taken �Type
No Meds [No Current Medications] 01/09/24 01/09/24 Unknown History
Active Medications
Generic Name Dose Route Start Last Admin
Trade Name Freq PRN Reason Stop Dose Admin
Acetaminophen 650 mg 01/09/24 03:46
Acetaminophen 325 Mg Tablet PO 02/06/24 03:45
Q4HPRN PRN
Mild Pain / Temp > 101
Albuterol Sulfate 2.5 mg 01/09/24 03:46
Albuterol Nebs 2.5 Mg/3 Ml Ampul INH
R Q4HPRN PRN
SOB
Protocol
Albuterol/Ipratropium 3 ml 01/09/24 08:00 08/01/24 07:50
Ipratropium 0.5/Albuterol 3 Mg (3 Ml Ampul) INH 01/09/24 20:01 3 ml
R QID TRAMAINE Administration
Protocol
Enoxaparin Sodium 40 mg 01/09/24 18:00
Enoxaparin Sodium 40 Mg/0.4 Ml Syringe SC 02/06/24 17:59
QPM TRAMAINE
Morphine Sulfate 2 mg 01/09/24 10:40
Morphine 2 Mg/Ml Syringe IV 01/23/24 03:45
Q4HPRN PRN
Moderate-Severe Pain
Sodium Chloride 0 flush 01/09/24 02:00
Sodium Chloride 0.9% (Flush) Syringe IV 02/06/24 01:59
PER PROTOCOL TRAMAINE
Review of Systems
-
12 point review of systems unremarkable with exception of some difficulty with deep inspiration secondary to induction of cough. She has had no hemoptysis. Additional 10 point review negative for systems a other than those reviewed in the HPI
Physical Exam
-
Physical examination:
Vital signs stable occasionally Tachycardic
HEENT no scleral icterus or significant jugular venous distention
Heart: Regular without murmur
Lungs clear without rales rhonchi
Abdomen soft without palpable organomegaly
Extremities with pretibial without pretibial edema
Neurologic nonfocal
Labs
Lab Results
WBC 15.0 10^3/uL (4.8-10.8) H 01/09/24 03:57
RBC 4.34 10^6/uL (4.20-5.40) 01/09/24 03:57
Hgb 13.4 g/dL (12.0-16.0) 01/09/24 03:57
Hct 37.7 % (37.0-47.0) 01/09/24 03:57
MCV 86.9 fL (81.0-99.0) 01/09/24 03:57
MCH 30.9 pg (27.0-31.0) 01/09/24 03:57
MCHC 35.5 g/dL (33.0-37.0) 01/09/24 03:57
RDW 12.6 % (11.5-14.5) 01/09/24 03:57
Plt Count 396 10^3/uL (130-400) 01/09/24 03:57
MPV 9.0 fL (7.4-10.4) 01/09/24 03:57
Abs Immat Gran (auto) 0.0 10^3/uL (0-0.05) 01/08/24 21:51
Absolute Neuts (auto) 7.0 10^3/uL (1.4-6.5) H 01/08/24 21:51
Absolute Lymphs (auto) 4.3 10^3/uL (1.2-3.4) H 01/08/24 21:51
Absolute Monos (auto) 1.0 10^3/uL (0.1-0.6) H 01/08/24 21:51
Absolute Eos (auto) 0.1 10^3/uL (0-0.7) 01/08/24 21:51
Absolute Basos (auto) 0.1 10^3/uL (0-0.2) 01/08/24 21:51
Immature Gran % 0.3 % (0-0.5) 01/08/24 21:51
Neutrophils % 56.3 % (42.2-75.2) 01/08/24 21:51
Lymphocytes % 34.7 % (20.5-51.1) 01/08/24 21:51
Monocytes % 7.8 % (1.7-9.3) 01/08/24 21:51
Eosinophils % 0.5 % (0-6) 01/08/24 21:51
Basophils % 0.4 % (0-2) 01/08/24 21:51
Creatinine 0.5 mg/dL (0.6-1.0) L 01/09/24 03:56
Vital Signs
Vital Signs
Temp Pulse Resp BP Pulse Ox
98.4 F 85 17 108/66 92
01/09/24 07:45 01/09/24 10:00 01/09/24 10:00 01/09/24 10:00 01/09/24 10:00
--- NOTE | 2024-01-09 12:00 | PTCARENOTE ---
Pt assessed.No change in assessment noted.
--- NOTE | 2024-01-09 12:09 | PTOTSP ---
Dysphagia Evaluation
Patient presents with signs concerning for unspecified pharyngeal dysphagia characterized by c/o stasis (puree, reportedly present with pills) and signs concerning for aspiration (thin, puree).
Etiology of dysphagia is currently unknown. Further objective assessment warranted via video swallow study. Until then recommend NPO, medication via non-oral means, and ice chips for comfort/oral hydration. If worsened respiratory status noted
hold ice chips.
Recommend:
1. NPO
2. Aspiration Risk Hydration Protocol - sparing ice chips after oral care with supervision
2. Medications via non-oral means
3. Oral care 3x daily
4. Video swallow study
--- NOTE | 2024-01-09 14:16 | CONSULT.CT ---
Consultation
-
Date/Time Consultation Requested: 01/09/241409
Date/Time Consultation Performed: 01/09/24 141
Requesting Provider: Damir MERCADO
Performing Provider: Celeste Short MD
Reason for Consultation: TONE mass biopsy
Patient History
Physicians
Family Physician: Hui Kay
History of Present Illness
43-year-old female with no significant past medical history besides being an active smoker has been experiencing neck pain and generalized weakness for 1 to 1.5 weeks. She states that this weakness has progressed to decreased appetite and now a
cough and some shortness of breath. She states that she went to an urgent care about 1 week ago where she was prescribed a steroid taper and an MRI which was done on 12/28. She was also prescribed a muscle relaxer and believes that she may have
choked while eating. Last night she presented to the ER with worsening back pain and was treated with oxycodone and sent home, however, today she complained of increased shortness of breath and return to the ER. While in the ER she was taken to
CAT scan for a CT of the head and chest. CT of the chest revealed a 4.5 x 2.5 x 4.6 cm lesion along the anterior pericardium with peripheral calcification posteriorly, along with atelectasis and possible mucous plugging of the right lower lobe.
She was also noted to be hypercarbic on ABG and was temporarily on BiPAP and transferred to ICU for further care. CT surgery was consulted for biopsy of evaluation.
Past Medical History
Past Medical History: None
Past Surgical History
Breast fibroma removal ~20 years ago
Family History
Mother: N/A
Father: N/A
Family Medical History: Cancer (breast (aunt))
Social History
Alcohol: Occasional
Drug: None
Tobacco: Smoker (7/day)
Personal:
Living: With Spouse
Employment: Employed
Allergies
Allergy/AdvReac Type Severity Reaction Status Date / Time
No Known Allergies Allergy Verified 01/08/24 21:29
Home Medications
�Medication �Instructions �Recorded �Confirmed �Type
No Meds [No Current Medications] 01/09/24 01/09/24 History
Review of Systems
-
History Source: Patient
General: Reports Weight Loss and Fatigue
HEENT: Reports No Symptoms
Respiratory: Reports SOB and Cough
Cardiac: Reports No Symptoms
Abdomen/GI: Reports No Symptoms
: Reports No Symptoms
Musculoskeletal: Reports No Symptoms
Skin: Reports No Symptoms
Neurological: Reports Weakness
Vascular: Reports No Symptoms
Physical Exam
Vital Signs
Temp 98.4 F 01/09/24 07:45
Temp route: Axillary 01/09/24 07:45
Pulse 87 01/09/24 13:00
Rhythm: Normal sinus rhythm 01/09/24 08:00
Resp Rate 17 01/09/24 13:00
Blood pressure 113/67 01/09/24 13:00
Blood pressure extremity used: Right upper arm 01/09/24 04:15
Position: Lying 01/09/24 04:15
MAP (cuff-David Monitor) 81 01/09/24 13:00
MAP 104 01/09/24 02:34
SaO2 90 01/09/24 13:00
Nasal Cannula flow liters per minute 4 01/09/24 11:41
Oxygen Mode of Delivery BiPAP 01/09/24 04:15
Flow liters per minute # 15 01/09/24 04:15
Acceptable pain level during hospitalization? 0 01/08/24 21:24
Can the patient verbally communicate their pain? Yes 01/09/24 04:11
Pain scale ratin 01/09/24 08:00
Actual Weight 53.2 kg 01/09/24 06:00
Body Mass Index (BMI) 22.9 01/09/24 06:00
etC02 value 24 08/01/24 13:00
Labs
01/09/24 03:57
01/09/24 03:56
PT 13.8 Sec (11.4-14.6) 01/09/24 03:56
APTT 24.7 Sec (23.4-35.0) 01/09/24 03:56
Troponin I < 0.012 ng/ml 01/09/24 02:34
Gil-Q-Symvevsnext Pept 36.6 pg/ml 01/09/24 02:34
Arterial Blood Gases
pH 7.42 (7.35-7.45) 01/09/24 04:54
pCO2 43 mmHg (32-35) H 01/09/24 04:54
pO2 106 mmHg (83-108) 01/09/24 04:54
HCO3 27.9 mmol/L (21-28) 01/09/24 04:54
Base Excess 2.9 mmol/L 01/09/24 04:54
ABG O2 Sat (Measured) 99.1 % (94-98) H 01/09/24 04:54
O2 Delivery Level 01/09/24 04:54
Exam
General: Well Developed and No Apparent Distress
HEENT: Normocephalic
Respiratory: Rhonchi
Cardiac: S1/S2 and Regular Rhythm
GI: Soft and Non Tender
Rectal: Deferred by Provider
Skin: Warm and Dry
Neuro: AO x 3 and Other (+4/5 strength)
Extremities: Pulses (+1)
Lymph: No Lymphadenopathy
Psych: Calm
Assessment / Plan
-
43-year-old female with no significant past medical history presents to [facility] with weakness and cough. Found to have a 4.5 x 2.5 x 4.6 cm lesion along the anterior pericardium. CT surgery was consulted for biopsy evaluation.
#Left upper lobe mass along the pericardium (4.5 x 2.5 x 4.6 cm with posterior peripheral calcification, suspicious for lymphoma vs primary bronchogenic carcinoma vs germ cell tumor; less likely cyst)
- Continue care per primary and ICU team
- Images to be evaluated by Dr. Short for biopsy planning
[2024-01-09 14:41] LABS: Venous Blood Gas B.E. 2.8 mmol/L (-4 to +4); Venous Blood Gas HCO3 27.2 mmol/L (22-27); Venous Blood Gas O2 Sat % 99.4 %; Venous Blood Gas pCO2 40 mmHg (35-48); Venous Blood Gas pH 7.44 (7.32-7.43); Venous Blood Gas pO2 164 mmHg (30-50)
[2024-01-09] MEDS: MUCOMYST 10% 2 ML INH ×2 (15:31→19:52)
--- NOTE | 2024-01-09 15:33 | CM ---
Patient seen at bedside. Patient solomon islander speaker, lives with in apartment/ 2 stories. Patient coming to visit later today. 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 Patient PCP is Dr. Kay. Patient uses the [facility] in
[place]. Patient for continued work up per nursing. Patient with no concerns about bills at this time. CM will continue to follow for discharge planning needs.
Plan; home with family supports; pending medical work up.
[2024-01-09] MEDS: MUCOMYST 10% INH (15:36)
[2024-01-09 15:38] LABS: TSH Reflex To Free T4 0.12 uIU/ml (0.47-4.68)
--- NOTE | 2024-01-09 16:00 | PTCARENOTE ---
Pt assessed.No change in assessment noted.
[2024-01-09 16:09] LABS: Free T4 1.64 ng/dl (0.78-2.19)
--- NOTE | 2024-01-09 17:17 | W.PN.HOSP.TC ---
Addendum entered and electronically signed by Abhi Rivera MD 01/09/24 21:21:
Attending Addendum-
I saw and evaluated the patient. I reviewed the resident�s note and agree with findings and plan as documented in the resident�s note. Sub: patient continues to feel SOB with cough. Feels very weak. Complains of b/l hand numbness. Full 12 point ROS
reviewed and negative except as documented Exam: Vitals reviewed in chart GEN-NAD, heart RRR no MRG lungs decreased BS @ RLL scattred expiratory wheeze LE no edema
Plan:
# ParaCardiac Mass
-4.5 x 2.5 x 4.6 cm lesion along the anterior pericardium which demonstrates posterior peripheral calcification.
-possible malignancy in smoker vs benign PC cyst
-will need bx
-check echo
- c/s onc
- c/s CT surg
- c/s IRAD
# Leukocytosis with Cough and mucous plugging
- unclear if infectious
- hold on starting abx for now
- start mucomyst
- repeat CBC in am
# Acute Hypoxemic Respiratory Failure
- was on bipap now weaned to NC 4L
- wean as tolerated
- likely with underlying COPD- PFTs as OP
# Cervical Radiculopathy with peripheral neuropathy
- start lyrica
# Tobacco Abuse-
- counselled re quitting
- start nicotine patch
DVT proph lovenox
Time spent coordinating care, review of plan of care with resident, personally reviewed records in EMR, med rec, consults, notes, labs, radiology, d/w nursing and pulm � 68 mins
Original Note:
Today's Communication/Plan
-
Patient will continue to be on supportive O2 and therapy.
Assessment / Plan
Assessment / Plan
43 year old female presents with a neck pain, generalized weakness, and difficulty breathing. Patient has been fatigued for several weeks and has no other past medical history of illness. Patient has had neck pain with hand numbness for around 1-2
weeks now for which she had been seeing an orthopedic doctor. She was treated with a steroid taper from urgent care as well about 1 week ago and was recommended to get an MRI done. MRI was done on 12/28. Patient states that she has been having
difficulty swallowing food, water and her medications and also has been having difficulty breathing.
Acute hypoxic respiratory failure possibly secondary to below
-(4.5 x 2.5 x 4.6 cm with posterior peripheral calcification, suspicious for lymphoma vs primary bronchogenic carcinoma vs germ cell tumor; less likely cyst)
-Oncology consulted
-IR consulted
-CT surgery also consulted
Acute cough with bibasilar mucoid/secretion impaction with bibasilar + RML atelectasis, due to aspiration pneumonia
-Supplemental O2 continued
-as per Low Altitude Air Defense Officer
-prn nebulizer bronchodilators + duo nebs QID
-patient started on Unasyn due to suspected Aspiration pneumonia
-Legionella/Strep PNA antigens and sputum CX
Generalized weakness with bilateral hand numbness (symptoms began about 1 week ago) - unclear cause, possibly due to mass effect from TONE mass vs worsening cervical radiculopathy
- Maintain MAP>65
- Replete electrolytes with K>4, Mg>2
- Maintain euglycemia with goal BG 140-180
-Oncology consulted
-IR consulted
-CT surgery consulted
Cervical Radiculopathy
-Supportive care, Morphine, acetaminophen as needed
Tobacco use disorder (smokes 5-7 cigarettes per day for 'few years')
-Patient given nicotine patch
DVT ppx: LMWH
Anticipated Discharge: > 48 hours
Subjective/Interval History
-
Date of Service: January 09, 2024
Patient was not feeling well, and had much labored breathing. Patient was complaining of being in much pain.
Objective Data
-
Labs:
Laboratory Results
01/09/24
03:56
Sodium 137
Potassium 4.3
Chloride 103
Carbon Dioxide 27
BUN 14
Creatinine 0.5 L
Glucose 119 H
Calcium 9.8
Vital Signs:
Vital Signs
Temp Pulse Resp BP Pulse Ox
98.4 F 97 18 103/62 96
01/09/24 07:45 01/09/24 16:00 01/09/24 16:00 01/09/24 16:00 01/09/24 15:34
I&O
01/08/24 01/09/24 01/10/24
06:59 06:59 06:59
Output Total 200 / 200
Balance -200 / -200
Review of Systems
-
History Source: Patient
Respiratory: Denies Cough, Trouble Breathing or Wheezing
Cardiac: Denies Chest Pain, Palpitations or Syncope
Musculoskeletal: Reports Other (Tingling sensation in hands); Denies Joint Pain
Neuro: Reports Weakness; Denies Headache
Physical Exam
-
General: Well Developed, Well Nourished, Respiratory Distress and Conversant
Respiratory: Wheezes, Crackles and Decreased Breath Sounds
Cardiac: Regular Rhythm and S1/S2
Neuro: Awake, Alert, Oriented, AO x 3, No Motor Deficits and Other
Data Reviewed
-
Diagnostic Radiology: Report Reviewed by me and Discussed with Physician
CT Scan: Report Reviewed by me and Discussed with Physician
Labs: Labs Reviewed by me, Discussed with Physician and Discussed with Patient
[2024-01-09] MEDS: UNASYN IV ×2 (18:15→23:20)
[2024-01-09] MEDS: NICODERM TRANSDERMAL 7 MG TRANSDERM (18:17)
[2024-01-09] MEDS: LOVENOX 40 MG SC (18:22)
--- NOTE | 2024-01-09 20:00 | PTCARENOTE ---
on assessment pt AAOx3, denies pain, SR on the monitor, 4L NC, denies SOB, HOB elevated, NPO, + menses, call epperson in reach.
[2024-01-09] MEDS: LYRICA PO (21:50)
[2024-01-09 23:36] LABS: Procalcitonin < 0.05 ng/ml (0.0-0.25)
[2024-01-10] VITALS (19 sets, daily range): BP systolic 90–137; BP diastolic 52–93; BMI 21.7
--- NOTE | 2024-01-10 00:09 | PTCARENOTE ---
no changes from prior assessment, denies pain and SOB, at bedside and call epperson in reach
--- NOTE | 2024-01-10 04:31 | PTCARENOTE ---
no changes from prior assessment, pt denies pain and SOB, SB while asleep, call epperson in reach.
[2024-01-10] MEDS: UNASYN IV ×3 (05:19→18:09)
[2024-01-10 05:26] LABS: % Basophils 0.4 % (0-2); % Eosinophils 1.4 % (0-6); % Immature Granulocytes 0.4 % (0-0.5); % Lymphocytes 29.6 % (20.5-51.1); % Monocytes 8.3 % (1.7-9.3); % Neutrophils 59.9 % (42.2-75.2); Absolute Basophils 0.1 10^3/uL (0-0.2); Absolute Eosinophils 0.2 10^3/uL (0-0.7); Absolute Immature Granulocytes 0.1 10^3/uL (0-0.05); Absolute Lymphocytes 4.1 10^3/uL (1.2-3.4); Absolute Monocytes 1.2 10^3/uL (0.1-0.6); Absolute Neutrophils 8.4 10^3/uL (1.4-6.5); Blood Urea Nitrogen 17 mg/dl (7-17); Calcium 9.8 mg/dl (8.4-10.2); Carbon Dioxide 26 mmol/L (22-30); Chloride 103 mmol/L (98-107); Estimated Creatinine Clearance 87 ml/min; Glucose 85 mg/dl (70-99); Hematocrit 37.4 % (37.0-47.0); Magnesium 1.9 mg/dl (1.6-2.3); Mean Corp Hgb Conc. 34.8 g/dL (33.0-37.0); Mean Corpuscular Hgb 30.6 pg (27.0-31.0); Mean Platelet Volume 9.4 fL (7.4-10.4); Nucleated Red Blood Cells % 0 %; Phosphorus 4.9 mg/dl (2.5-4.5); Platelet Count 393 10^3/uL (130-400); Potassium 4.3 mmol/L (3.5-5.1); Red Blood Cell Count 4.25 10^6/uL (4.20-5.40); Sodium 137 mmol/L (135-145); eGFR > 60.00
--- NOTE | 2024-01-10 07:38 | W.PN.HOSP.TC ---
Addendum entered and electronically signed by Abhi Rivera MD 01/10/24 21:00:
Attending Addendum-
I saw and evaluated the patient. I reviewed the resident�s note and agree with findings and plan as documented in the resident�s note. Sub: feel MUCH improved. States weakness SOB cough are resolving. b/l hand numbness improved as well. Full 12
point ROS reviewed and negative except as documented Exam: Vitals reviewed in chart GEN-NAD, heart RRR no MRG lungs decreased BS @ RLL scattred expiratory wheeze LE no edema
Plan:
# Mass along the pericardium
-4.5 x 2.5 x 4.6 cm lesion along the anterior pericardium which demonstrates posterior peripheral calcification.
- ? thymoma
- for robotic assisted mass resection/LN biopsy 01/14 Dr. Short
- echo 01/08- LV ejection fraction is 65-70%. Normal regional wall motion.
Normal right ventricular size and function.
No significant valvular disease.
tx to IMU
# Leukocytosis with Cough and mucous plugging
- resolving leukocytosis
- procal neg
- cont IV Unasyn day #2 for now t/c DC
- mucomyst
- repeat CBC in am
# Acute Hypoxemic Respiratory Failure
- was on bipap now weaned to NC 2L
- cont to wean as tolerated
# Cervical Radiculopathy with peripheral neuropathy
- improving
- cont lyrica
# Tobacco Abuse-
- counselled re quitting
- cont nicotine patch
# Subclinical Hyperthyroidism
- repeat TFT as OP in 6 weeks
DVT proph lovenox
Time spent coordinating care, review of plan of care with resident, personally reviewed records in EMR, med rec, consults, notes, labs, radiology, d/w nursing and CC � 55 mins
Original Note:
Today's Communication/Plan
-
Patient will continue to be monitored for respiratory distress.
Assessment / Plan
Assessment / Plan
43 year old female presents with a neck pain, generalized weakness, and difficulty breathing. Patient has been fatigued for several weeks and has no other past medical history of illness. Patient has had neck pain with hand numbness for around 1-2
weeks now for which she had been seeing an orthopedic doctor. She was treated with a steroid taper from urgent care as well about 1 week ago and was recommended to get an MRI done. MRI was done on 12/28. Patient states that she has been having
difficulty swallowing food, water and her medications and also has been having difficulty breathing.
# ParaCardiac Mass
-(4.5 x 2.5 x 4.6 cm with posterior peripheral calcification, suspicious for lymphoma vs primary bronchogenic carcinoma vs germ cell tumor; less likely cyst)
-Oncology consulted
-IR consulted
-CT surgery also consulted
-robotic assisted mass resection/LN biopsy (01/14)
Acute cough with bibasilar mucoid/secretion impaction with bibasilar + RML atelectasis, due to aspiration pneumonia
-Supplemental O2 continued
-as per Resident Hall Director
-prn nebulizer bronchodilators + duo nebs QID
-patient started on Unasyn due to suspected Aspiration pneumonia
-Legionella/Strep PNA antigens and sputum CX
-Mucomyst 2ml started
Generalized weakness with bilateral hand numbness
- Maintain MAP>65
- Replete electrolytes with K>4, Mg>2
- Maintain euglycemia with goal BG 140-180
-Oncology consulted
-IR consulted
-CT surgery consulted
Cervical Radiculopathy
-Lyrica 75mg BID started
Tobacco use disorder (smokes 5-7 cigarettes per day for 'few years')
-Patient given nicotine patch
-counselled re quitting
DVT ppx: Lovenox
Anticipated Discharge: > 48 hours
Subjective/Interval History
-
Date of Service: January 10, 2024
Patient has been feeling much better and more energetic overnight. Patient feels stronger and has been breathing much better.
Objective Data
-
Labs:
Laboratory Results
01/10/24
04:49
WBC 14.0 H
Hgb 13.0
Hct 37.4
Plt Count 393
Sodium 137
Potassium 4.3
Chloride 103
Carbon Dioxide 26
BUN 17
Creatinine 0.6
Glucose 85
Calcium 9.8
Vital Signs:
Vital Signs
Temp Pulse Resp BP Pulse Ox
98.5 F 69 18 106/68 97
01/10/24 07:00 01/10/24 07:00 01/10/24 07:00 01/10/24 07:00 01/10/24 07:00
I&O
01/09/24 01/10/24 01/11/24
06:59 06:59 06:59
Output Total 500 / 500
Balance -500 / -500
Review of Systems
-
History Source: Patient
Constitutional: Denies Fever, Fatigue, Chills or Weakness
Respiratory: Denies Cough, Trouble Breathing or Wheezing
Cardiac: Denies Chest Pain, Diaphoresis or Palpitations
Neuro: Denies Dizzy, Headache or Weakness
Physical Exam
-
General: No Apparent Distress and Comfortable
Respiratory: Clear to Auscultation and Non Labored Respirations
Cardiac: Regular Rhythm and S1/S2
Musculoskeletal: No Clubbing, No Cyanosis and No Edema
Skin: Warm and Dry
Neuro: Awake, Alert, Oriented and AO x 3
Psych: Calm
Data Reviewed
-
Diagnostic Radiology: Report Reviewed by me, Discussed with Physician and Discussed with Patient
CT Scan: Report Reviewed by me, Discussed with Physician and Discussed with Patient
Medical Tests (Nuc Med, Echo etc): Report Reviewed by me, Discussed with Physician and Discussed with Patient
Labs: Labs Reviewed by me, Discussed with Physician and Discussed with Patient
[2024-01-10] MEDS: LYRICA PO (08:00)
[2024-01-10] MEDS: MUCOMYST 10% 2 ML INH (08:00)
[2024-01-10] MEDS: VENTOLIN NEBULES 2.5 MG INH (08:00)
--- NOTE | 2024-01-10 08:00 | PTCARENOTE ---
Received pt awake and alert.Speech is appropriate.Reports increased strength in both hand grasps and bl upper extremities.Slight numbness in bl hands noted, but pt is able to use her hair brush today.SR noted.POX 96% 2l NC.Decreased breath sounds
bibasilar.NPO.Speech therapy will reassess pt today.No BM.Voiding.+ menses.Skin integrity intact.Plan of care discussed with pt.
[2024-01-10 08:57] LABS: LDH 152 U/L (120-246)
[2024-01-10 09:33] LABS: AFP Male/Tumor Marker 1.91 ng/ml
--- NOTE | 2024-01-10 10:18 | W.PN.INTV ---
Today's Communication / Plan
Recommendations
Up OOB as tolerated
Antibiotics X [address] planning for mediastinal resection next week
Nicotine patch; tobacco cessation reinforced
Patient has improved markedly, is on room air breathing comfortably with saturations 95%, hypercapnia resolved and is hemodynamically stable. Plan for mediastinal resection next week. Awaiting acetylcholine receptor antibodies. Patient stable for
downgrade to IMU for continued close monitoring. Gluer Machine Operator/Pulmonary service will now sign off. Please reconsult if there are any additional questions/concerns, or if patient's respiratory status deteriorates.
Assessment
-
Assessment: 43-year-old female with a past medical history of tobacco use disorder who presents with neck pain, generalized weakness, shortness of breath and cough. She says she has been fatigued for several weeks, denying any preceding illness.
Her neck pain with hand numbness began about 1-2 weeks ago. She saw an orthopedic doctor few days ago after she was treated with a steroid taper from an urgent care about 1 week prior, and apparently orthopedic recommended splinting with an
outpatient MRI. MRI was done on 12/29/2023. Patient says she has been having trouble swallowing food/water and medications. She believes she may have choked on a muscle relaxer yesterday. In the ER she was afebrile to 97.6 �F, pulse rate 98,
respiratory rate 18, BP 155/106 and saturating 90% on room air. Labs showed leukocytosis to 12.4, platelets 441, ABG showed pH 7.3, pCO2 50. COVID antigen negative. CXR showed a rounded masslike opacity of the left superior margin of the heart.
Chest CT with IV contrast was obtained showing a 4.5 x 2.5 x 4.6 cm lesion along the anterior pericardium with posterior peripheral calcification. There is also bibasilar atelectasis (L >R) with possible mucous plugging in the right lower lobe.
Also right middle lobe atelectasis. CT head showed no acute intracranial abnormality. Patient given albuterol in the ER +1 L NS 0.9%. After patient returned to the ER from CAT scan, she was more hypoxic. She was placed onto nonrebreather mask
and ABG obtained showing hypercapnia. BiPAP started onto the patient and she was transferred to the ICU for further care.
Chronic conditions DIRECTOR OF HOSPITALITY: Tobacco use disorder, mild cervical degenerative disc disease
Impression:
#Left upper lobe mass along the pericardium (4.5 x 2.5 x 4.6 cm with posterior peripheral calcification, suspicious for thymoma vs lymphoma vs primary bronchogenic carcinoma vs germ cell tumor; less likely cyst)
#Acute respiratory failure with hypoxia + hypercapnia - improved
#Acute cough with bibasilar mucoid/secretion impaction with bibasilar + RML atelectasis, due to aspiration pneumonia
#Generalized weakness with bilateral hand numbness (symptoms began about 1 week ago) - unclear cause, possibly due to mass effect from TONE mass vs worsening cervical radiculopathy
#Tobacco use disorder (smokes 5-7 cigarettes per day for 'few years')
#Reported history of cervical radiculopathy
#Subclinical hyperthyroidism (TSH: 0.12, free T4: 1.64)
Plan:
- Continue supplemental O2 and maintain SpO2 >90-94%
- Currently on RA from 4L/min NC yesterday
- NIF checked on 8. --> -[id number], likely due to generalized weakness (TSH low but free T4 WNL)
- prn nebulized bronchodilators; does not appear to be coughing much phlegm out with Mucomyst; I will stop this now and reassess daily if needs to be restarted
- Incentive spirometer encouraged
- Given her acute cough that she says started 1-2 days DIRECTOR OF HOSPITALITY, and she reports that she has been having great difficulty eating/drinking and taking medications, she likely aspirated. This is further supported by her OPERATIONS LEADER eval on 01/08, which shows that
she is at high aspiration risk
- Seen by OPERATIONS LEADER today and patient feels much better, and is cleared for regular diet with thin liquids
- On 01/07, we started Unasyn as she has evidence of multifocal bronchus obstruction from aspiration, and has leukocytosis with SOB, hypoxia and cough - this is concerning for pneumonia/CAP
- Legionella and Strep PNA urine antigens both negative; check sputum Cx; negative procal
- Given her CT chest shows secretions/mucous in her lower lobes and bibasilar/RML atelectasis, I started Abx with Unasyn, and plan for 5-7 days
- Administer mucinex, DuoNebs and mucomyst
- Nicotine patch - tobacco cessation reinforced
- Oncology consulted - recs appreciated
- IR consulted for TONE lung mass biopsy
- CT surgery also consulted as TONE is very close to pericardium and perhaps a thoracotomy vs mediastinoscopy would be better to evaluate this lesion and obtain tissue
- Plan for robotic mediastinal resection next week
- Tumor studies negative (AFP, hCG, +LDH)
- Maintain MAP>65
- Replete electrolytes with K>4, Mg>2
- Maintain euglycemia with goal BG 140-180
- DVT ppx: LMWH
Patient has improved markedly, is on room air breathing comfortably with saturations 95%, hypercapnia resolved and is hemodynamically stable. Plan for mediastinal resection next week. Awaiting acetylcholine receptor antibodies. Patient stable for
downgrade to IMU for continued close monitoring. Gluer Machine Operator/Pulmonary service will now sign off. Thank you for allowing us to be involved in the care of this patient. Please reconsult if there are any additional questions/concerns, or if
patient's respiratory status deteriorates.
Total time spent today was 35 minutes for this encounter. Time includes reviewing laboratory test/imaging results, reviewing pertinent medical records, obtaining and reviewing medical history, performing an appropriate exam, ordering medications,
tests and procedures. Time also includes documentation of this encounter, coordinating patient care and communicating with other healthcare professionals. Total time does not include separately billed tests performed on this date of service.
Data:
CT chest with IV contrast 01/09/2024: Mildly motion degraded examination
1. There is a 4.5 x 2.5 x 4.6 cm lesion along the anterior pericardium which demonstrates posterior peripheral calcification. This demonstrates Hounsfield units more consistent with a soft tissue lesion rather than cyst. Differential includes a
pleural-based lesion, colonic lesion, lymphoma or germ cell tumor. Findings are less likely atypical pericardial cyst. There is no mediastinal, hilar or axillary lymphadenopathy.
2. Left greater than right bibasilar atelectasis with questionable mucous plugging in the right lower lobe. Right middle lobe atelectasis.
CT head 01/09/2024:
No acute intracranial abnormality noted.
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
Subjective Dataa
Subjective Data
Date of Service:
Date of Service: January 10, 2024
Chief Complaint: Gluer Machine Operator Follow Up
Subjective:
Patient seen and evaluated this morning. Sitting in chair in no acute distress. Saturating 95% on room air. Heart rate 101. BP 115/77. Afebrile overnight. Son and patient's friend at bedside. All questions were answered. Patient feels much
better today. AFP tumor marker, bHCG and LDH are negative.
Review of Systems
General: Other (Negative unless mentioned above)
Objective Data
Data Reviewed
Vital Signs / I&O / Oxygen:
Vital Signs
Temp Pulse Resp BP Pulse Ox
98.5 F 81 21 115/77 96
01/10/24 07:00 01/10/24 09:00 01/10/24 09:00 01/10/24 09:00 01/10/24 09:56
Intake and Output
01/09/24 01/10/24 01/11/24
06:59 06:59 06:59
Output Total 500 / 500
Balance -500 / -500
SaO2 96
Nasal Cannula flow liters per 2
minute
Physical Exam
General: Respiratory Distress (Negative), Comfortable, Chills (Negative) and Sweats (Negative)
HEENT: Normocephalic and Anicteric
Cardiovascular: S1-S2, Peripheral Edema (Negative) and Other (Tachycardic)
Respiratory: Clear, Wheeze (Negative), Crackles (Negative), Rhonchi (Negative) and Non-Labored Respirations
GI: Soft, Non Distended, Non Tender and Normal Bowel Sounds
Neurology: AO x 3 and Tremors (Negative)
Skin: Warm, Dry and Jaundice (Negative)
Labs/Micro/Reports
Lab Data
01/10/24 04:49
01/10/24 04:49
Microbiology
01/10/24 04:58 Urine Legionella Urinary Antigen - Final
Negative for Legionella pneumophila Serogroup 1 antigen.
A negative result does not rule out the possiblity of
Legionella infection due to other serogroups or species of
Legionella. Clinical correlation is recommended.
01/10/24 04:58 Urine Streptococcus pneumoniae Antigen (M - Final
Negative for Streptococcus pneumoniae antigen.
A negative result does not exclude infection with
Streptococcus pneumoniae. Clinical correlation is
recommended.
--- NOTE | 2024-01-10 11:03 | PTCARENOTE ---
Pt assisted OOB to bathroom then chair.Gait is steady.ST noted.HR 125, now 88 SR.
[2024-01-10] MEDS: NICODERM TRANSDERMAL 7 MG TRANSDERM (11:35)
--- NOTE | 2024-01-10 12:13 | PTCARENOTE ---
Dr Short and MIXING TUMBLER OPERATOR at bedside.IPad multimedia coordinator utilized.
--- NOTE | 2024-01-10 13:09 | CM ---
CM following re: discharge planning.
Reviewed pt's chart, met with pt.
Pt with a neck pain, generalized weakness, and difficulty breathing. Patient has been fatigued for several weeks, currently requires 3L NC of supplemental O2, continue supportive care.
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
D/C plan: home with anticipated no needs. family to transport at discharge.
CM will follow with discharge plan updates as hospitalization progresses
--- NOTE | 2024-01-10 13:36 | PTOTSP ---
Dysphagia Therapy
Patient reports feeling 'better', denied any neck pain, vocal changes, or difficulty swallowing including denying any c/o pharyngeal stasis. Initiate regular, thin liquid diet with patient picking soft/moist foods using small sips/bites. If
sensation of pharyngeal stasis returns, consider further instrumental swallowing via video swallow study.
--- NOTE | 2024-01-10 15:44 | W.PN.UPDATE ---
Update Note
Progress Note Update
Patient seen with Dr. Short this afternoon. Pantry Worker present via ipad. Patient will go for a robotic assisted mass resection/LN biopsy on SaturdayJanuary 14. Consent obtained and placed in chart.
--- NOTE | 2024-01-10 16:22 | PTCARENOTE ---
Pt assessed.No change in assessment noted.
[2024-01-10] MEDS: LOVENOX 40 MG SC (18:09)
[2024-01-10] MEDS: LYRICA 75 MG PO (20:04)
--- NOTE | 2024-01-10 20:27 | PTCARENOTE ---
Received pt OOB to the chair eating dinner, @ bedside. Pt AAOx3, denies pain, c/o mild tingling/numbness to b/l UE, and generalized weakness; steady gait noted to the bathroom. NSR on the monitor, tachycardia noted with activity. Remainder
of assessment as documented. Pt's PM care provided by self in the bathroom. Pt assisted into bed, updated on POC for the evening, pt resting with call epperson within reach on the bedside table, no questions at this time.
[2024-01-11] VITALS (9 sets, daily range): BP systolic 101–146; BP diastolic 67–95
--- NOTE | 2024-01-11 | W.PN.UPDATE ---
Update Note
Progress Note Update
Around midnight asked to eval pt for c/o sob
PT pt decided to eat a KIND bar (with nuts) that brought in and felt like it was stuck in throat. PT admitted with similar symptoms of difficulty swallowing and SOB.
Initially pulse ox 96% room air but did noted to desat to 88-90% with attempts to clear throat. Weak cough. NRB placed for comfort briefly
CXR -r atelectasis
duoneb given
pt felt improved post treatments
advised pt and to stick to food softer.
[2024-01-11] MEDS: DUONEB 3 ML INH (00:13)
[2024-01-11] MEDS: UNASYN IV ×4 (00:18→17:59)
--- NOTE | 2024-01-11 00:55 | PTCARENOTE ---
Pt c/o difficulty swallowing/the sensation that something is stuck in her throat after taking a bite of a peanut bar. Pt is able to speak in full sentences, frequent moist cough is present, unchanged from previous assessment. SpO2 is 96% on RA.
Covering BOND UNDERWRITER notified, responded bedside, portable CXR ordered and obtained. RT notified and PRN neb treatment administered. Pt still with a frequent, moist cough, but reports mild improvement in symptoms. RT placed pt on 4L O2 NC s/p treatment for
comfort, SpO2 96%.
[2024-01-11 05:45] LABS: Hematocrit 38.2 % (37.0-47.0); Hemoglobin 13.3 g/dL (12.0-16.0); Mean Corp Hgb Conc. 34.8 g/dL (33.0-37.0); Mean Corpuscular Hgb 31.7 pg (27.0-31.0); Mean Platelet Volume 9.1 fL (7.4-10.4); Platelet Count 358 10^3/uL (130-400); Red Cell Dist. Width 12.6 % (11.5-14.5); White Blood Cell Count 10.5 10^3/uL (4.8-10.8)
[2024-01-11 06:01] LABS: Blood Urea Nitrogen 16 mg/dl (7-17); Calcium 9.7 mg/dl (8.4-10.2); Carbon Dioxide 31 mmol/L (22-30); Chloride 102 mmol/L (98-107); Estimated Creatinine Clearance 87 ml/min; Glucose 98 mg/dl (70-99); Magnesium 1.9 mg/dl (1.6-2.3); Phosphorus 4.7 mg/dl (2.5-4.5); Sodium 137 mmol/L (135-145); eGFR > 60.00
--- NOTE | 2024-01-11 07:34 | W.PN.HOSP.TC ---
Addendum entered and electronically signed by Abhi Rivera MD 01/11/24 19:35:
Attending Addendum-
I saw and evaluated the patient. I reviewed the resident�s note and agree with findings and plan as documented in the resident�s note. Sub: Had episode of choking last PM on nut bar. Desatted and had to have o2 placed back on. Currently feels much
improved. No complaints. 'can i go home before the procedure?' Full 12 point ROS reviewed and negative except as documented Exam: Vitals reviewed in chart GEN-NAD, heart RRR no MRG lungs decreased BS @ RLL LE no edema
Plan:
# Mediastinal Mass along the pericardium
-4.5 x 2.5 x 4.6 cm lesion along the anterior pericardium which demonstrates posterior peripheral calcification.
- ? thymoma
- for robotic assisted mass resection/LN biopsy 01/14 Dr. Short
- echo 01/08- LV ejection fraction is 65-70%. Normal regional wall motion.
Normal right ventricular size and function.
No significant valvular disease.
- cont care in IMU (IMU overflow)
# Cough/mucous plugging/Dysphagia
- resolved leukocytosis
- episode choking on food 01/09
- check lateral neck/soft tissue x ray
- procal neg
- DC IV Unasyn
- cont mucomyst
- speech eval
- start flutter valve and IS- possible chest PT
- for VFSS on saturday
- repeat CBC in am
# Acute Hypoxemic Respiratory Failure
- was on bipap now weaned to RA
- cont to wean as tolerated
# Cervical Radiculopathy with peripheral neuropathy
- improving
- cont new lyrica
# Tobacco Abuse-
- counselled re quitting
- cont nicotine patch
# Subclinical Hyperthyroidism
- repeat TFT as OP in 6 weeks
DVT proph lovenox
Time spent coordinating care, review of plan of care with resident, personally reviewed records in EMR, med rec, consults, notes, labs, radiology, d/w nursing and speech � 57 mins
Original Note:
Today's Communication/Plan
-
Patient will continue on current medications, change diet to soft and bite sized solids, thin liquids.
Assessment / Plan
Assessment / Plan
43 year old female presents with a neck pain, generalized weakness, and difficulty breathing. Patient has been fatigued for several weeks and has no other past medical history of illness. Patient has had neck pain with hand numbness for around 1-2
weeks now for which she had been seeing an orthopedic doctor. She was treated with a steroid taper from urgent care as well about 1 week ago and was recommended to get an MRI done. MRI was done on 12/28. Patient states that she has been having
difficulty swallowing food, water and her medications and also has been having difficulty breathing.
ParaCardiac Mass
-(4.5 x 2.5 x 4.6 cm with posterior peripheral calcification, suspicious for lymphoma vs primary bronchogenic carcinoma vs germ cell tumor; less likely cyst)
-Oncology consulted
-IR consulted
-CT surgery also consulted
- Possible Thymoma?
-robotic assisted mass resection/LN biopsy (01/14)
- transfered to IMU
Leukocytosis with Cough and mucous plugging
-Supplemental O2 continued
-as per Solar Sales Estimator
-prn nebulizer bronchodilators + duo nebs QID
-IV Unasyn cont day 3
-Legionella/Strep PNA antigens and sputum CX
-Mucomyst
-procalcitonin levels negative
Acute Hypoxemic Event due to Dysphagia
-duo neb given
-As per Speech Therapist, input appreciated
-Change diet to soft, bite sized textures
-Video swallow study on Saturday
-GI consult if necessary after study
-CXR Lateral Neck- Unremarkable exam- Prevertebral soft tissues appear normal. No radiographic foreign bodies are noted. The airway is unremarkable considering the patient positioning. Epiglottis is within normal limits.
Generalized weakness with bilateral hand numbness
- Maintain MAP>65
- Replete electrolytes with K>4, Mg>2
- Maintain euglycemia with goal BG 140-180
-Oncology consulted
-IR consulted
-CT surgery consulted
Subclinical Hyperthyroidism
- repeat TFT as out patient in 6 weeks
Cervical Radiculopathy
-Lyrica 75mg BID started
Tobacco use disorder (smokes 5-7 cigarettes per day for 'few years')
-Patient given nicotine patch
-counselled re quitting
DVT ppx: Lovenox
Anticipated Discharge: > 48 hours
Subjective/Interval History
-
Date of Service: January 11, 2024
Patient had a nut bar which she had trouble swallowing last night but has been feeling better this morning. Patient will be more careful with the types of food she consumes for now.
Objective Data
-
Labs:
Laboratory Results
01/11/24
05:25
WBC 10.5
Hgb 13.3
Hct 38.2
Plt Count 358
Sodium 137
Potassium 4.0
Chloride 102
Carbon Dioxide 31 H
BUN 16
Creatinine 0.6
Glucose 98
Calcium 9.7
Vital Signs:
Vital Signs
Temp Pulse Resp BP Pulse Ox
98.6 F 67 16 107/84 100
01/11/24 03:00 01/11/24 06:00 01/11/24 06:00 01/11/24 06:00 01/11/24 06:00
I&O
01/10/24 01/11/24 01/12/24
06:59 06:59 06:59
Output Total 500 / 500
Balance -500 / -500
Review of Systems
-
History Source: Patient
Constitutional: Denies Chills or Weakness
Respiratory: Reports Cough; Denies Trouble Breathing or Wheezing
Cardiac: Denies Chest Pain, Diaphoresis or Palpitations
Abdomen/GI: Denies Abdominal Pain, Nausea, Vomiting or Hematemesis
Musculoskeletal: Denies Joint Pain, Muscle Pain, Muscle Stiffness, Arthralgias or Myalgias
Neuro: Denies Dizzy, Headache, Weakness or Numbness
Physical Exam
-
General: Well Developed, Well Nourished and No Apparent Distress
HEENT: Moist Mucous Membranes and Good Dentition
Respiratory: Clear to Auscultation and Non Labored Respirations
Cardiac: Regular Rhythm and S1/S2
Musculoskeletal: No Clubbing, No Cyanosis and No Edema
Skin: Warm and Dry
Neuro: Awake, Alert, Oriented, AO x 3 and No Motor Deficits
Psych: Calm
Data Reviewed
-
Diagnostic Radiology: Report Reviewed by me, Discussed with Physician and Discussed with Patient
CT Scan: Report Reviewed by me, Discussed with Physician and Discussed with Patient
Medical Tests (Nuc Med, Echo etc): Report Reviewed by me, Discussed with Physician and Discussed with Patient
Labs: Labs Reviewed by me, Discussed with Physician and Discussed with Patient
[2024-01-11] MEDS: NICODERM TRANSDERMAL 7 MG TRANSDERM (09:18)
[2024-01-11] MEDS: LYRICA 75 MG PO ×2 (09:18→21:27)
--- NOTE | 2024-01-11 09:36 | PTCARENOTE ---
Late assessment due to pt in BR washing up. She is ambulatory in the room. Speaks broken Nicaraguan, she understands that if she does not understand what is being explained to her to have us repeat. Left hand #18g protective catheter removed due to
painful flushing. ST 140's-150 while washing up and standing. RA pulse ox 95%. Denies shortness of breath. Stated 'breathing ok'. Placed on telemetry pack so she can be more independent in the room. Left hand #18g protective catheter flushed,
painful to flush, catheter removed. The importance of using the incentive spirometer was explained to her and that after her surgery she will be required to use it. She verbalized her understanding. Breath sounds decreased in the bases. She coughed,
clearing her throat after taking her Lyrica, she was standing while taking it. Pulse ox unchanged after this. RR easy and unlabored as well. Pt with her menses. Safe environment maintained.
--- NOTE | 2024-01-11 10:54 | PTOTSP ---
Speech Language Pathology
Dysphagia Re-Evaluation
Chart reviewed. Per RN, possible aspiration event last night. Pt attempted to consume a Kind/nut bar p/w increased coughing and pharyngeal stasis. Started on O2, now off. CXR ordered w/ 'Right lower lobe atelectasis. No visualized radiopaque foreign
body. Unchanged appearance of the known lesion along the cardiac silhouette, better evaluated on prior CT chest.'
PO trials this date with no overt s/s of aspiration or penetration. Recommend downgrade of diet level to soft and bite sized textures (IDDSI 6) with avoidance of dry/crunchy foods. OK to continue with thin liquids. Recommend meds as tolerated, may
attempt whole in puree for increased comfort as needed. Plan for video swallow study to further assess anatomy and physiology of swallow impairment.
Recommend:
1. Soft and bite sized solids (IDDSI 6), thin liquids (IDDSI 0)
2. Meds as tolerated; attempted whole in puree PRN for increased comfort
3. Small bites, single sips, alternate bites and sips
4. Plan for video swallow study to further assess anatomy and physiology of swallow impairment, MD notified
--- NOTE | 2024-01-11 14:39 | PTCARENOTE ---
Dr. Joyce and Dr. Loaiza notified via TT that she has not moved her bowels since her admission. Also pt requesting to be able to take a shower.
--- NOTE | 2024-01-11 16:32 | PTCARENOTE ---
She is OOB to chair, ambulating in the room. ST in the 120's at times with ambulation. She stated that the salmon she had at lunch was difficult to swallow and that she will only order soup for dinner. Supportive care given.
[2024-01-11] MEDS: SENOKOT-S 1 TABLET PO (17:03)
[2024-01-11] MEDS: LOVENOX 40 MG SC (18:00)
[2024-01-11] MEDS: TYLENOL 650 MG PO (18:06)
--- NOTE | 2024-01-11 18:12 | PTCARENOTE ---
Pt seems frustrated with her swallowing difficulties. I observed her standing every time she takes a bite of food. She was encouraged to eat more frequently but small amounts. She is aware we can refrigerate her food and reheat if necessary. Mild
discomfort in her neck. Tylenol administered.
--- NOTE | 2024-01-11 20:32 | PTCARENOTE ---
Pt Aox3, VSS, NSR/ST on monitor, walking in the halls with .
[2024-01-12] VITALS (8 sets, daily range): BP systolic 102–166; BP diastolic 75–94; BMI 22.8
[2024-01-12] MEDS: UNASYN IV ×2 (00:17→06:12)
--- NOTE | 2024-01-12 07:47 | W.PN.HOSP.TC ---
Addendum entered and electronically signed by Abhi Rivera MD 01/12/24 20:15:
Attending Addendum-
I saw and evaluated the patient. I reviewed the resident�s note and agree with findings and plan as documented in the resident�s note. Sub: continues to have worsening UE weakness with repetitive movements. denies SOB CP palps.
Full 12 point ROS reviewed and negative except as documented Exam: Vitals reviewed in chart GEN-NAD, heart tachycardic and sinus no MRG lungs decreased BS @ RLL LE no edema MS 4->2 b/l UE with repetitive movements, slight proptosis b/l
Plan:
# Mediastinal Mass adjacent to the pericardium
-4.5 x 2.5 x 4.6 cm lesion along the anterior pericardium which demonstrates posterior peripheral calcification.
-? thymoma
-for robotic assisted mass resection/LN biopsy- 01/14 Dr. Short
- echo 01/08- LV ejection fraction is 65-70%. Normal regional wall motion.
Normal right ventricular size and function.
No significant valvular disease.
- sxs very concerning for MG- acetylcholine rec ab and MUSK ab- pend
- cont care in IMU (IMU overflow)
# Cough/mucous plugging/Dysphagia
- resolved leukocytosis
- episode choking on food 01/09
- check lateral neck/soft tissue x ray- reviewed WNL
- procal neg
- cont mucomyst
- speech eval-for VFSS on 01/12
- cont flutter valve and IS- possible chest PT
- start q shift NIF's
- repeat CBC in am
# Acute Hypoxemic Respiratory Failure
- resolved
- was on bipap now weaned to RA
- cont to wean as tolerated
# Cervical Radiculopathy with peripheral neuropathy
- improving
- cont new lyrica
# Tobacco Abuse-
- counselled re quitting
- cont nicotine patch
# Hyperthyroidism
- possibly autoimmune
- repeat TSH free t4 in am
DVT proph lovenox
Time spent coordinating care, review of plan of care with resident, personally reviewed records in EMR, med rec, consults, notes, labs, radiology, d/w nursing respiraotry and speech � 58 mins
Original Note:
Today's Communication/Plan
-
Patient will continue with current medications. Monitor tachycardia and breathing.
Assessment / Plan
Assessment / Plan
43 year old female presents with a neck pain, generalized weakness, and difficulty breathing. Patient has been fatigued for several weeks and has no other past medical history of illness. Patient has had neck pain with hand numbness for around 1-2
weeks now for which she had been seeing an orthopedic doctor. She was treated with a steroid taper from urgent care as well about 1 week ago and was recommended to get an MRI done. MRI was done on 12/28. Patient states that she has been having
difficulty swallowing food, water and her medications and also has been having difficulty breathing.
ParaCardiac Mass
-(4.5 x 2.5 x 4.6 cm with posterior peripheral calcification, suspicious for lymphoma vs primary bronchogenic carcinoma vs germ cell tumor; less likely cyst)
-Oncology consulted
-IR consulted
-CT surgery also consulted
- Possible Thymoma?
- robotic assisted mass resection/LN biopsy (01/14)
- transferred to IMU
- awaiting antibody testing results
Cough and mucous plugging
-supplemental O2 weaned, on
-as per Administrative Project Coordinator
-prn nebulizer bronchodilators + duo nebs QID
-IV Unasyn discont
-Legionella/Strep PNA antigens and sputum CX
-Mucomyst
-procalcitonin levels negative
Acute Hypoxemic Event due to Dysphagia
-duo neb given
-As per Speech Therapist, input appreciated
-Change diet to soft, bite sized textures
-Video swallow study on Saturday
-GI consult if necessary after study
-CXR Lateral Neck- Unremarkable exam- Prevertebral soft tissues appear normal. No radiographic foreign bodies are noted. The airway is unremarkable considering the patient positioning. Epiglottis is within normal limits.
-start flutter valve and IS- possible chest PT
-follow-up PFT-nifs
Subclinical Hyperthyroidism
- repeat TFT as out patient in 6 weeks
Cervical Radiculopathy
-Lyrica 75mg BID continue
Tobacco use disorder (smokes 5-7 cigarettes per day for 'few years')
-Patient given nicotine patch
-counselled re quitting
DVT ppx: Lovenox
Anticipated Discharge: > 48 hours
Subjective/Interval History
-
Date of Service: January 12, 2024
Patient has been feeling better but has been feeling weak in her arms
Objective Data
-
Labs:
Laboratory Results
01/12/24
06:58
WBC Pending
Hgb Pending
Hct Pending
Plt Count Pending
Sodium Pending
Potassium Pending
Chloride Pending
Carbon Dioxide Pending
BUN Pending
Creatinine Pending
Glucose Pending
Calcium Pending
Vital Signs:
Vital Signs
Temp Pulse Resp BP Pulse Ox
97.3 F 63 21 112/80 97
01/12/24 07:05 01/12/24 01:00 01/11/24 09:17 01/12/24 00:54 01/11/24 21:31
I&O
01/11/24 01/12/24 01/13/24
06:59 06:59 06:59
Intake Total 1440 / 1440
Balance 1440 / 1440
Review of Systems
-
History Source: Patient
Constitutional: Reports Weakness; Denies Fever, Sleep Disturbance, Night Sweats or Chills
EENT: Denies Sore Throat
Respiratory: Denies Cough or Trouble Breathing
Cardiac: Denies Chest Pain, Diaphoresis or Palpitations
Neuro: Reports Weakness
Physical Exam
-
General: Well Developed and Well Nourished
HEENT: Moist Mucous Membranes
Respiratory: Clear to Auscultation and Non Labored Respirations
Cardiac: Regular Rhythm (tachycardia) and S1/S2
Musculoskeletal: No Clubbing, No Cyanosis and No Edema
Neuro: Awake, Alert, Oriented and AO x 3
Data Reviewed
-
Diagnostic Radiology: Report Reviewed by me, Discussed with Physician and Discussed with Patient
CT Scan: Report Reviewed by me, Discussed with Physician and Discussed with Patient
Medical Tests (Nuc Med, Echo etc): Report Reviewed by me, Discussed with Physician and Discussed with Patient
Labs: Labs Reviewed by me, Discussed with Physician and Discussed with Patient
[2024-01-12] MEDS: LYRICA 75 MG PO ×2 (07:55→21:45)
[2024-01-12] MEDS: TYLENOL 650 MG PO (07:55)
[2024-01-12] MEDS: NICODERM TRANSDERMAL 7 MG TRANSDERM (07:55)
--- NOTE | 2024-01-12 08:00 | PTCARENOTE ---
No change from prior assessment. PAtient is AAOx4, Sinus tach, sinus rhythm on monitor. intermittent pulse ox check, 9% on room air. Mild neck pain, tylenol given. will review orders, patient is independing in room.
[2024-01-12 08:33] LABS: % Basophils 0.8 % (0-2); % Eosinophils 2.8 % (0-6); % Immature Granulocytes 0.3 % (0-0.5); % Lymphocytes 36.3 % (20.5-51.1); % Monocytes 8.7 % (1.7-9.3); % Neutrophils 51.1 % (42.2-75.2); Absolute Basophils 0.1 10^3/uL (0-0.2); Absolute Eosinophils 0.2 10^3/uL (0-0.7); Absolute Lymphocytes 2.8 10^3/uL (1.2-3.4); Absolute Monocytes 0.7 10^3/uL (0.1-0.6); Hematocrit 39.1 % (37.0-47.0); Hemoglobin 13.3 g/dL (12.0-16.0); Mean Corpuscular Hgb 30.6 pg (27.0-31.0); Mean Corpuscular Volume 89.9 fL (81.0-99.0); Mean Platelet Volume 9.2 fL (7.4-10.4); Nucleated Red Blood Cells % 0 %; Platelet Count 381 10^3/uL (130-400); Red Blood Cell Count 4.35 10^6/uL (4.20-5.40); Red Cell Dist. Width 12.5 % (11.5-14.5); White Blood Cell Count 7.8 10^3/uL (4.8-10.8)
[2024-01-12 08:56] LABS: Blood Urea Nitrogen 13 mg/dl (7-17); Carbon Dioxide 33 mmol/L (22-30); Chloride 100 mmol/L (98-107); Estimated Creatinine Clearance 87 ml/min; Glucose 93 mg/dl (70-99); Potassium 4.4 mmol/L (3.5-5.1); Sodium 138 mmol/L (135-145); eGFR > 60.00
[2024-01-12 10:06] LABS: Creatine Phosphokinase 67 U/L (30-135)
[2024-01-12 12:58] LABS: Phosphorus 4.5 mg/dl (2.5-4.5)
--- NOTE | 2024-01-12 16:16 | PTCARENOTE ---
no change in patient's assessment. patient written for IMU.
[2024-01-12] MEDS: LOVENOX 40 MG SC (18:03)
--- NOTE | 2024-01-12 18:14 | PTCARENOTE ---
Pt transferred to 3344 from ICU w/ RN and PCT. Pt SR/ST on monitor. Ambulating in hallway and room with . AAOx3, pleasant and cooperative. Updated on plan of care. Oriented to room. Call epperson within reach. Able to make needs known.
[2024-01-12] MEDS: XOPENEX 1.25 MG INHALANT SOLUTION INH (19:14)
--- NOTE | 2024-01-12 20:07 | PTCARENOTE ---
Upon receiving pt at beginning of shift pt sitting up at side of bed c/o 'something stuck in my throat after eating salmon.' RA POA 82%. Nonrebreather placed pox 93-94%. Pt with very weak moist cough. Lung sounds rhonchorous throughout anteriorly, a
change per day shift RN. RT TT'd and pt given neb treatment. Oxygen eventually able to be decreased to 4L NC pox 95%. Christi NAGY TT'd and update on pt's status. Pt now NPO x meds/sips/ice. Pt denies any chest/neck discomfort at present time. Rest of
assessment as documented. Call epperson within reach. S.O. at bedside. Pt and S.O with many questions and all answered to satisfaction. Will continue to monitor.
--- NOTE | 2024-01-12 21:58 | PTCARENOTE ---
Pt feeling much better than beginning of shift. Continues on 4L NC pox 94%. Feels better after breathing treatment. Cough not as intense but still with frequent clearing of throat. Notable weakness on left side especially LUE. Diminished fine motor
skills to left hand. Pt instructed to not get oob without assistance. She agrees. Her call epperson is placed at her right hand for ease of use/access. Pt is Syrian speaking but understands Kosovan well. Able to ask questions and understand feedback.
She does still have at her disposable a pen and paper just in case. Taking in small amount of ice and small sips of water. Took HS pill without difficulty. Currently speaking on phone without difficulty. Will continue to monitor.
--- NOTE | 2024-01-12 22:35 | PTCARENOTE ---
With assist x 1 pt assisted to bathroom to void. Pt has significant decreased ROM to neck/shoulder and B/L arms. Pt attempted HS care while in bathroom and this RN had to hold up both of pt's arms so she could wash her face, apply facial cream,
brush her teeth and use mouthwash. Pt unable to brush back of hair or apply hair band for bed time. While standing pt swaying to keep her stance. Pt gets SOB when attempting to give self care. Much assistance given to pt till pt back in bed. Able to
walk slowly from bathroom to bed. Able to lift left leg up on bed but much slower than right leg. Pt currently resting comfortably in bed. Call epperson within reach on right side. Will continue to monitor.
[2024-01-13] VITALS (11 sets, daily range): BP systolic 92–133; BP diastolic 70–93
[2024-01-13 03:15] LABS: HCG Male/Tumor Marker 1 IU/L (0-5)
[2024-01-13 05:04] LABS: % Basophils 0.5 % (0-2); % Immature Granulocytes 0.3 % (0-0.5); % Lymphocytes 31.2 % (20.5-51.1); % Monocytes 7.8 % (1.7-9.3); % Neutrophils 58.2 % (42.2-75.2); Absolute Basophils 0.1 10^3/uL (0-0.2); Absolute Eosinophils 0.2 10^3/uL (0-0.7); Absolute Lymphocytes 3.2 10^3/uL (1.2-3.4); Absolute Monocytes 0.8 10^3/uL (0.1-0.6); Hematocrit 36.6 % (37.0-47.0); Hemoglobin 12.6 g/dL (12.0-16.0); Mean Corp Hgb Conc. 34.4 g/dL (33.0-37.0); Mean Corpuscular Hgb 31.3 pg (27.0-31.0); Mean Corpuscular Volume 90.8 fL (81.0-99.0); Mean Platelet Volume 9.4 fL (7.4-10.4); Nucleated Red Blood Cells % 0 %; Platelet Count 357 10^3/uL (130-400); Red Blood Cell Count 4.03 10^6/uL (4.20-5.40); Red Cell Dist. Width 12.4 % (11.5-14.5); White Blood Cell Count 10.4 10^3/uL (4.8-10.8)
[2024-01-13 05:25] LABS: Blood Urea Nitrogen 12 mg/dl (7-17); Calcium 9.7 mg/dl (8.4-10.2); Carbon Dioxide 29 mmol/L (22-30); Chloride 102 mmol/L (98-107); Estimated Creatinine Clearance 87 ml/min; Glucose 89 mg/dl (70-99); Potassium 4.1 mmol/L (3.5-5.1); Sodium 138 mmol/L (135-145); eGFR > 60.00
--- NOTE | 2024-01-13 07:40 | W.PN.HOSP.TC ---
Today's Communication/Plan
-
Watch for any further aspiration incidents and patient should remain NPO until further notice.
Assessment / Plan
Assessment / Plan
43 year old female presents with a neck pain, generalized weakness, and difficulty breathing. Patient has been fatigued for several weeks and has no other past medical history of illness. Patient has had neck pain with hand numbness for around 1-2
weeks now for which she had been seeing an orthopedic doctor. She was treated with a steroid taper from urgent care as well about 2 weeks ago and was recommended to get an MRI done. MRI was done on 12/28. Patient states that she has been having
difficulty swallowing food, water and her medications and also has been having difficulty breathing.
Mediastinal Mass adjacent to the pericardium
-4.5 x 2.5 x 4.6 cm lesion along the anterior pericardium which demonstrates posterior peripheral calcification.
-thymoma?
-for robotic assisted mass resection/LN biopsy- 01/14 Dr. Short
- echo 01/08- LV ejection fraction is 65-70%. Normal regional wall motion.
Normal right ventricular size and function.
No significant valvular disease.
- sxs very concerning for MG- acetylcholine rec ab and MUSK ab- pend
- cont care in IMU and monitor
Acute Dysphagia
- resolved leukocytosis
- episode choking on food 01/09
- check lateral neck/soft tissue x ray- reviewed WNL
- procal neg
- cont mucomyst
- speech eval-for VFSS on 01/12
- cont flutter valve and IS- possible chest PT
- Continue q shift NIF's
- Continue monitor CBC
- VSE performed, recommended to be npo with liquid diet. Aspiration Risk.
- Patient NPO and GI consulted for possible ng tube placement, input appreciated
#Upper Extremity Weakness
-Numbness and weakness in bilateral upper extremities
-Neuro consulted, input appreciated
# Acute Hypoxemic Respiratory Failure
- was on bipap now weaned to RA
- cont to wean as tolerated
# Cervical Radiculopathy with peripheral neuropathy
- improving
- cont new lyrica
# Tobacco Abuse-
- counselled re quitting
- cont nicotine patch
# Hyperthyroidism
- possibly autoimmune
- TSH-0.6
Anticipated Discharge: > 48 hours
Subjective/Interval History
-
Date of Service: January 13, 2024
Patient had a minor choking incident while consuming sushi last night. Patient says that she is feeling better afterwards.
Objective Data
-
Labs:
Laboratory Results
01/13/24
04:30
WBC 10.4
Hgb 12.6
Hct 36.6 L
Plt Count 357
Sodium 138
Potassium 4.1
Chloride 102
Carbon Dioxide 29
BUN 12
Creatinine 0.6
Glucose 89
Calcium 9.7
Vital Signs:
Vital Signs
Temp Pulse Resp BP Pulse Ox
98.2 F 65 14 104/70 98
01/13/24 03:10 01/13/24 06:00 01/13/24 06:00 01/13/24 06:00 01/13/24 06:00
I&O
01/12/24 01/13/24 01/14/24
06:59 06:59 06:59
Intake Total 1440 / 1440 550 / 550
Balance 1440 / 1440 550 / 550
Review of Systems
-
History Source: Patient
Respiratory: Reports Cough and Trouble Breathing
Cardiac: Denies Chest Pain, Diaphoresis or Palpitations
Musculoskeletal: Reports Muscle Weakness
Neuro: Reports Weakness and Numbness
Physical Exam
-
General: Well Developed, No Apparent Distress and Comfortable
Respiratory: Clear to Auscultation and Non Labored Respirations
Cardiac: Regular Rhythm and S1/S2
Musculoskeletal: No Clubbing, No Cyanosis and No Edema
Neuro: Awake, Alert, Oriented, AO x 3 and Other (Bilateral proximal upper extremity weakness)
Psych: Anxious
Data Reviewed
-
CT Scan: Report Reviewed by me, Discussed with Physician and Discussed with Patient
Labs: Labs Reviewed by me, Discussed with Physician and Discussed with Patient
--- NOTE | 2024-01-13 08:31 | PTCARENOTE ---
Pt insisting on using BR for hygeine, demonstrated good strength and fine motor while using BSC with RN helping, so assisted to bathroom to brush teeth and freshen up, weak fine motor but legs strong, discussed plan with resident, sent off unit to
video swallow at this time.
[2024-01-13] MEDS: NICODERM TRANSDERMAL 7 MG TRANSDERM (10:09)
[2024-01-13] MEDS: LYRICA 75 MG PO ×2 (10:54→21:48)
--- NOTE | 2024-01-13 12:28 | PTOTSP ---
Video Swallow Examination
Summary: Patient with WFL-mild oral and moderate-severe pharyngeal stage dysphagia with severe retention with puree via tsp (did not clear with dry swallows, reduced with a mildly thick liquid wash which was then penetrated), frequent penetration
throughout the study, and aspiration with thin liquids (no cough; trace volume) and mildly thick liquids (did not immediately fully clear vocal folds with throat clearing).
Patient is at risk for aspiration with an oral diet and at risk for airway obstruction with solids. Patient is at risk for difficulty meeting nutrition needs and safely taking oral medications. Patient is at a lower risk for aspiration
complications given her age (43), good oral hygiene, mobility, and that she is currently on room air. However, concern for acute myasthenia gravis elevates risk for aspiration complications.
Patient in opted for plan below after education about options. See patient care note.
Recommend:
1. NPO - consider temporary non-oral means
2. Medications - via non-oral means if able; essential meds in liquid form
3. Aspiration Risk Hydration Protocol - unlimited water and ice chips via small single sips with intermittent cough/swallow. Discontinue if decline in respiratory status observed.
4. Oral care 3x daily and before water.
5. Dysphagia therapy at the acute care level for instruction in compensations, and therapeutic PO trials, and to determine timing of repeat swallow study.
--- NOTE | 2024-01-13 13:24 | PTCARENOTE ---
Pt remains 97% on room air, NPO status with sips of thins maintained. Plan of care discussed with Speech therapist and mult MDs.
--- NOTE | 2024-01-13 15:28 | W.PN.UPDATE ---
Update Note
Progress Note Update
I saw and evaluated the patient. I reviewed the resident�s note and agree with findings and plan as documented in the resident�s note.
Patient continues to have weakness in upper extremity. Have episode of swallowing difficulty yesterday and choked on food.
1. Mediastinal mass
-CT chest images reviewed. 4.5 x 2.5 x 4.6 cm lesion along the anterior pericardium which demonstrates posterior peripheral calcification.
- for robotic assisted mass resection/LN biopsy- 01/14 Dr. Short
-Question of this mass being thymoma and neurological symptoms secondary to myasthenia gravis, although quite persistent and not currently behaving like MG. Nonetheless MSK and in acetylcholine antibody test pending
2. Acute dysphagia
-Patient will VSE and recommended to be n.p.o. with trial of liquid diet with understanding of aspiration risk
-MRI C-spine done last week outpatient basis was normal according to patient, patient brought in images/CD and provided to RN although unable to be located at this point. Will talk with radiology department
-Maintain patient on n.p.o. at this point
-GI help requested for possible Dobbhoff placement
3. Upper extremity weakness
-Patient having both upper extremity weakness and change in sensation.
-Neurology evaluation requested
4. Acute hypoxic respiratory failure
-Was on BiPAP now currently on room air
-CT chest did not show any acute findings.
5. Cervical Radiculopathy with peripheral neuropathy
- cont new lyrica
6. Tobacco Abuse-
- counselled re quitting
- cont nicotine patch
7. Hyperthyroidism
- possibly autoimmune
- TSH normalizing to 0.6 now. at admit was 0.12
DVT proph - lovenox
Total time spent : 55 mins
--- NOTE | 2024-01-13 15:47 | CON.GI ---
Addendum entered and electronically signed by Leesa Woods MD 01/13/24 18:24:
I saw and examined the patient.
The BOBBIN WINDER TENDER or PA's note was reviewed and I agree with the note.
Comment: 43-year-old female admitted with shortness of breath, dysphagia, cough, arm and neck pain found to have mediastinal mass with plan for surgery on January 14 also undergoing neurologic workup for possible myasthenia gravis. She underwent a
speech eval was deemed unable to have food and liquids and was recommended to have nonoral means. Shannon placed a Dobbhoff tube the patient refused to keep this in. It was discussed with the patient both with Shannon and the resident the importance
of keeping it off often but patient refused. Dysphagia most likely related to neurologic issues and mediastinal mass. At this time GI will sign off. Please call with any questions or issues. Discussed with hospitalist.
Original Note:
Consultation
-
Date/Time Consultation Requested: 01/13/24 @ 15:36
Date/Time Consultation Performed: 01/13/24 @ 15:50
Requesting Provider: Dr. Lara
Performing Provider: LILO Diallo; Dr. Malaika Woods
Reason for Consultation: dysphagia, dobhoff placement
Medical History
Chief Complaint / HPI
Chief Complaint: neck pain, arm pain, cough
History of Present Illness:
The patient is a 43-year-old female with no significant past medical history, who presented to the emergency room on 01/08 with a multitude of complaints including neck pain, arm pain, cough, difficulty swallowing, and shortness of breath. Initial w/u
with a CXR was done in the emergency room which revealed a left chest mass of unclear etiology. Upon further evaluation, she had been ordered a chest CT and went into respiratory distress after requiring BiPAP. Th chest CT showed a 4.5 x 2.5 x 4.6
lesion along the anterior pericardium which demonstrates posterior peripheral calcifications thought to be consistent with a soft tissue. She is pending a robotic assisted mass resection/lymph node biopsy on 01/14. Given her ongoing dysphagia and
neurological symptoms she underwent further testing. 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 An x-ray of the soft tissue/neck was
unremarkable. She was placed on Lyrica for peripheral neuropathy which symptoms have been reportedly improving. She is pending evaluation by neurology for workup of possible myasthenia gravis which MSK and acetylcholine antibody testing are pending.
She underwent a barium video swallow examination today due to her ongoing dysphagia symptoms which showed aspiration of thin liquids by single cup with chin tuck and aspiration of nectar thick barium by single cup. She was made n.p.o. due to these
findings and we are being asked to place a Dobbhoff tube. Labs reviewed from today which showed no significant abnormalities. She reports 2 weeks leading up to her admission she had been having ongoing dysphagia mostly with solid foods. She notes
that thin liquids also would make her cough. She also admits to bilateral arm weakness as above. She notes s few pounds of weight loss but denies loss of appetite. She otherwise denies any GI symptoms. She denies any difficulty swallowing prior
to her hospitalization. She has never had an EGD. She denies any use of medications on a daily basis. She denies any family history of any GI cancers or disorders.
Past Medical History
Past Medical History: None
Past Surgical History: Other (fibroadenoma removed from the breast)
Social History
Tobacco: Smoker
Alcohol: None
Drug: None
Personal:
Living: With Family
Family History
Family History: Reviewed & Not Pertinent
Allergies / Home Medications
Allergy/AdvReac Type Severity Reaction Status Date / Time
No Known Allergies Allergy Verified 01/08/24 21:29
�Medication �Instructions �Recorded
No Meds [No Current Medications] 01/09/24
Review of Systems
-
History Source: Patient
Constitutional: Reports Weight Loss
EENT: Reports No Symptoms
Respiratory: Reports No Symptoms
Cardiac: Reports No Symptoms
Abdomen/GI: Reports Other (Dysphagia)
: Reports No Symptoms
Musculoskeletal: Reports Other (Bilateral upper extremity weakness/neuropathy)
Skin: Reports No Symptoms
Neurological: Reports Weakness
Endocrine: Reports No Symptoms
Hematologic/Lymphatic: Reports No Symptoms
Vital Signs
Temp Pulse Resp BP Pulse Ox
98.3 F 82 13 109/80 97
01/13/24 15:10 01/13/24 14:00 01/13/24 14:00 01/13/24 14:00 01/13/24 14:00
Physical Exam
Exam
General: Well Developed, Well Nourished, No Apparent Distress and Comfortable
HEENT: Normocephalic, Anicteric and Atraumatic
Respiratory: Clear and Non Labored Respirations
Cardiac: S1/S2 and Regular Rhythm
Breast: Deferred by me
GI: Soft, Non Tender, Non Distended and Normal Bowel Sounds
Musculoskeletal: No Edema
Skin: Warm and Dry
Neuro: Awake, Alert and Oriented
Psych: Calm
Results
WBC 10.4 10^3/uL (4.8-10.8) 01/13/24 04:30
Hgb 12.6 g/dL (12.0-16.0) 01/13/24 04:30
Hct 36.6 % (37.0-47.0) L 01/13/24 04:30
MCV 90.8 fL (81.0-99.0) 01/13/24 04:30
Plt Count 357 10^3/uL (130-400) 01/13/24 04:30
Absolute Neuts (auto) 6.0 10^3/uL (1.4-6.5) 01/13/24 04:30
PT 13.8 Sec (11.4-14.6) 01/09/24 03:56
INR 1.06 01/09/24 03:56
APTT 24.7 Sec (23.4-35.0) 01/09/24 03:56
Sodium 138 mmol/L (135-145) 01/13/24 04:30
Potassium 4.1 mmol/L (3.5-5.1) 01/13/24 04:30
Chloride 102 mmol/L (98-107) 01/13/24 04:30
Carbon Dioxide 29 mmol/L (22-30) 01/13/24 04:30
BUN 12 mg/dl (7-17) 01/13/24 04:30
Creatinine 0.6 mg/dL (0.6-1.0) 01/13/24 04:30
Calcium 9.7 mg/dl (8.4-10.2) 01/13/24 04:30
Total Bilirubin 0.5 mg/dl (0.2-1.3) 01/08/24 21:51
AST 27 U/L (14-36) 01/08/24 21:51
ALT 20 U/L (0-35) 01/08/24 21:51
Alkaline Phosphatase 50 U/L (38-126) 01/08/24 21:51
Diagnostic Image Results:
01/11/24 Neck XR: Unremarkable exam.
01/09/24 CT scan: IMPRESSION: No acute intracranial abnormality noted. 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
01/09/24 CT Chest: IMPRESSION: Mildly motion degraded examination
1. There is a 4.5 x 2.5 x 4.6 cm lesion along the anterior pericardium which demonstrates posterior peripheral calcification. This demonstrates Hounsfield units more consistent with a soft tissue lesion rather than cyst. Differential includes a
pleural-based lesion, colonic lesion, lymphoma or germ cell tumor. Findings are less likely atypical pericardial cyst. There is no mediastinal, hilar or axillary lymphadenopathy.
2. Left greater than right bibasilar atelectasis with questionable mucous plugging in the right lower lobe. Right middle lobe atelectasis.
Prior GI Procedures:
EGD: none
Colonoscopy: none
Assessment / Plan
-
The patient is a 43-year-old female with no significant past medical history, who presented to the emergency room on 01/08 with a multitude of complaints including neck pain, arm pain, peripheral neuropathy, cough, dysphagia, and shortness of breath,
found to have a mass on her chest x-ray of unclear etiology. She has no prior medical history. Symptoms essentially are unclear at this time, undergoing workup for myasthenia gravis. Neurology evaluation is pending. She has been having ongoing
dysphagia with signs of aspiration of nectar and thin liquids on VSE. We were asked to place a dobhoff feeding tube.
Problem list:
-mediastinal mass
-acute onset of dysphagia
-neuropathy, bilateral arm weakness
-neck pain
-acute hypoxic respiratory failure requiring Bipap, resolved
-hyperthyroidism
-current cigarette smoker
Recommendations:
-Etiology of dysphagia possibly neurological given her other symptoms versus esophageal dysmotility versus Schatzki ring versus other.
-At this time would await further neurological evaluation to determine further interventions for her dysphagia
-Diet recommendations as per speech therapy
-A Dobbhoff tube was discussed with the patient prior to placement and she was agreeable, but shortly after placement she immediately requested it to be removed. This was discussed with the hospitalist who discussed with her further regarding the
importance of nutrition in short-term. The patient continued to decline and the tube was removed by the nurse. She had no evidence of respiratory distress.
-If she continues to have poor nutritional intake to consider replacement of the Dobbhoff tube if she is agreeable. Given her age unlikely to need a PEG tube for supervisor intermediates nutrition, but to consider if she is not improving.
-To consider esophagram in the future if she continues with symptoms and her neurological workup is unrevealing.
-No further recommendations from a GI standpoint at this time pending her neurological workup.
-Please call us back with any questions or concerns or for reevaluation.
-
-
Thank you for consultation and allowing me to participate in the patient's care. Please call the project construction assistant manager GI physician during the after hours with any questions or concerns.
--- NOTE | 2024-01-13 16:41 | PTCARENOTE ---
Addendum entered by Oscar Delgado RN 01/13/24 17:15:
Pt now requesting DHT be removed, she states she cannot tolerate the discomfort. GI EXAMINATION SUPERVISOR Shannon contacted Dr. Woods, discussed with Dr. Lara and residents, reviewed with patient, she remains adamant. DHT removed at this time.
Original Note:
GI and Neuro consults placed. Dobhoff tube placed by GI at this time. CXR pending. Plan of care reviewed by GI with consultant intern.
[2024-01-13 17:21] LABS: Acetylcholine Receptor Bind Ab 27.4 nmol/L (0.0-0.4)
--- NOTE | 2024-01-13 20:49 | CON.NEURO4 ---
Consultation - Neurology 4
-
CONSULTING PHYSICIAN: Humberto Mao MD(Neurology)
REFERRING PHYSICIAN: Hospitalist
DICTATED BY: Humberto Mao MD
DATE/TIME OF REQUEST: 01/13/2024
DATE/TIME OF CONSULTATION: 01/13/2024 1830
Reason for Consultation: Weakness
History of Present Illness:
This is a 43 year old right handed female who has presented to the hospital with weakness. She was in her USOH with no medical issues till last week of December 2023 She was admitted on January 08 complaining of cough and SOB. Patient has been
complaining of neck discomfort with pain into both arms for the past 1 1/2 weeks.
She was seen [facility] who suspected cervical disc disease as the etiology of her symptoms.
Patient reports that she has had difficulty swallowing - feeling that food is getting stuck in the upper throat. She was placed on a Medrol Pack for her symptoms - with no significant improvement thus far.
Today, patient started to have weak odd cough. She was unable to cough 'well' as this cause worsening of neck / upper back pain. Patient stated that she was becoming SOB and presented to the ED for further evaluation.
CXR showed a rounded masslike opacity of the left superior margin of the heart. Chest CT with IV contrast was obtained showing a 4.5 x 2.5 x 4.6 cm lesion along the anterior pericardium with posterior peripheral calcification. There is also
bibasilar atelectasis (L >R) with possible mucous plugging in the right lower lobe. Also right middle lobe atelectasis.
During CT chest her SOB worsened / in distress following study. Patient was lying flat for CT of the chest and CT head.
CT head showed no acute intracranial abnormality.
Patient given albuterol in the ER +1 L NS 0.9%. Patient was placed on NRB mask in the ED with gradual improvement in subjective dyspnea, distress and hypoxemia.
Later she was placed on BiPAP. Currently she is resting more comfortably with BiPAP mask. After patient returned to the ER from CAT scan, she was more hypoxic. She was placed onto nonrebreather mask and ABG obtained showing hypercapnia. BiPAP
started onto the patient and she was transferred to the ICU for further care.
On Saturday AM. bainca was having hand numbness, shortness of breath and cough - producing phlegm, mora colored. She does report that her breathing and coughing is better. Currently pulling 750cc on IS. She is on 4L/min
She underwent a barium video swallow examination today due to her ongoing dysphagia symptoms which showed aspiration of thin liquids by single cup with chin tuck and aspiration of nectar thick barium by single cup. She was made n.p.o. due to these
findings and GI placed a Dobbhoff tube.
Bianca has been receiving Botox Cosmetic injection to her face and neck over the last 2-3 years
Past Medical History: None
Surgical History: Botox cosmetic injection for last 2-3 years
Family History: [place]
Social History: . Lives at home with her . Smoker 1/2 ppd
Allergies: BOTOX
Home Medications: BOTOX Cosmetic injection
Review of Symptoms:
Patient denies any fever, headache, chest pain, shortness of breath, GI or symptoms.
�Per the HPI.�All systems are reviewed negative except above.
�-
Vital Signs:
The patient has a Temp 36.7 C Pulse 85 Resp 17 BP 103/92 Pulse Ox 97
Physical Exam:
The patient is afebrile, heart sounds S1 and S2 are regular , and chest is clear with decreased air entry to auscultation bilaterally.
Neurologic Examination:
The patient is awake, alert and oriented x 3. She is able to follow commands and answer questions appropriately. There is no aphasia. She has Dysarthria.
On cranial nerve assessment, pupils are 3 mm bilateral, round and reactive to light and accommodation. Visual delarosa are full. Extraocular movements are intact.
Mild ptosis
Facial sensations are intact and bilaterally symmetrical. There is mild facial asymmetry. Hearing is intact bilaterally to normal conversation volume.
Difficulty elevating Tongue palate and uvula. Poor gag. Sternocleidomastoid strengths are decreased bilaterally.
Motor strengths are 3/5 bilateral upper and lower extremities on medical research [place] scale. There is no drift or involuntary movement noted.
Deep tendon reflexes are + bilateral upper and lower extremities and Babinski is absent bilaterally. Sensations of pain, touch, temperature and vibration are intact and bilaterally symmetrical. There was no extinction noted on double simultaneous
stimulation. Coordination is intact by finger to nose bilaterally.
Rombergs And gait needs assistance
Lab Results: See addendum
Neuro Imaging:
CT head: Normal cortical architecture. Normal ventricles.
CT Chest: 4.5 x 2.5 x 4.6 cm lesion along the anterior pericardium which demonstrates posterior peripheral calcification. This demonstrates Hounsfield units more consistent with a soft tissue lesion rather than cyst. Differential includes a
pleural-based lesion, colonic lesion, lymphoma or germ cell tumor. Findings are less likely atypical pericardial cyst. There is no mediastinal, hilar or axillary lymphadenopathy.
Impression:
Mrs. WILBER MENDEZ is a 43 year old F who has presented to the hospital with chief complaint of new onset bulbar symptoms (dysphagia dysarthria) and generalized weakness that is multifactorial.
Differentials for the patient's presentation include:
1. Botox induced Myasthenia
2. Eaton Lambert Syndrome secondary to mediastinal mass
3. 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
Recommendations:
1. Mestinon 30mg BID to titrate to QID to 60 mg QID as tolerated
2. BiPAP
3. ACh receptor antibody titer(blocking/binding/modulating)
4. Musk Antibody
5. NMDA receptor antibody
6. Anti Hu/Yo/Ri antibodies
7. CT surgery for excision of mass
8. MRI of thoracic spine with contrast
9. NPO
10. Voltage gated Calcium channel antibody
Discussed patient care with: Hospitalist
Vital Signs and Labs
-
Vital Signs and Labs:
Vital Signs
Temp Pulse Resp BP Pulse Ox
36.7 C 85 17 103/92 97
01/13/24 19:10 08/05/24 18:00 01/13/24 18:00 01/13/24 18:00 01/13/24 18:00
Lab Results
01/13/24 04:30
01/13/24 04:30
PT 13.8 Sec (11.4-14.6) 01/09/24 03:56
INR 1.06 01/09/24 03:56
APTT 24.7 Sec (23.4-35.0) 01/09/24 03:56
Sodium 138 mmol/L (135-145) 01/13/24 04:30
Potassium 4.1 mmol/L (3.5-5.1) 01/13/24 04:30
BUN 12 mg/dl (7-17) 01/13/24 04:30
Glucose 89 mg/dl (70-99) 01/13/24 04:30
Calcium 9.7 mg/dl (8.4-10.2) 01/13/24 04:30
Phosphorus 4.5 mg/dl (2.5-4.5) 01/12/24 08:16
Qwx-A-Ijmrikjptqy Pept 36.6 pg/ml 01/09/24 02:34
Allergies
-
Allergies
Allergy/AdvReac Type Severity Reaction Status Date / Time
No Known Allergies Allergy Verified 01/08/24 21:29
Medications
-
Active Medications
Generic Name Dose Route Start Last Admin
Trade Name Freq PRN Reason Stop Dose Admin
Acetaminophen 650 mg 01/09/24 03:46 01/12/24 07:55
Acetaminophen 325 Mg Tablet PO 02/06/24 03:45 650 mg
Q4HPRN PRN Administration
Mild Pain / Temp > 101
Levalbuterol HCl 1.25 mg 01/11/24 14:00 01/12/24 19:14
Levalbuterol 1.25 Mg/3 Ml Ampul INH 1.25 mg
R Q6HPRN PRN Administration
SOB,COUGH,WHEEZE
Protocol
Morphine Sulfate 2 mg 01/09/24 10:40
Morphine 2 Mg/Ml Syringe IV 01/23/24 03:45
Q4HPRN PRN
Moderate-Severe Pain
Nicotine 7 mg 01/09/24 15:00 01/13/24 10:09
Nicotine 7 Mg Patch TRANSDERM 02/06/24 14:59 7 mg
DAILY TRAMAINE Administration
Pregabalin 75 mg 01/09/24 22:00 01/13/24 10:54
Pregabalin 75 Mg Capsule PO 02/06/24 21:59 75 mg
BID TRAMANIE Administration
Pyridostigmine [place] 30 mg 01/13/24 20:00
Pyridostigmine 60 Mg Tablet PO 02/10/24 19:59
BID TRAMAINE
Senna/Docusate Sodium 1 tablet 01/11/24 14:15 01/11/24 17:03
Docusate W/Senna (Rima-Colace) Tablet PO 02/08/24 14:14 1 tablet
DAILYPRN PRN Administration
Constipation
Sodium Chloride 0 flush 01/09/24 02:00
Sodium Chloride 0.9% (Flush) Syringe IV 02/06/24 01:59
PER PROTOCOL TRAMAINE
Home Medications
�Medication �Instructions �Recorded
No Meds [No Current Medications] 01/09/24
[2024-01-13] MEDS: TYLENOL 650 MG PO (21:48)
[2024-01-13] MEDS: MESTINON 30 MG PO (21:48)
[2024-01-14] VITALS (9 sets, daily range): BP systolic 91–113; BP diastolic 60–84
--- NOTE | 2024-01-14 01:46 | PTCARENOTE ---
Pt able to take HS medication with out visible signs of aspiration but did need to take her time. Pt had complaint of neck pain, prn given (see mar). Assessment care and vitals as charted.
[2024-01-14 04:11] LABS: % Basophils 0.8 % (0-2); % Eosinophils 3.3 % (0-6); % Immature Granulocytes 0.3 % (0-0.5); % Lymphocytes 44.1 % (20.5-51.1); % Monocytes 9.8 % (1.7-9.3); % Neutrophils 41.7 % (42.2-75.2); Absolute Basophils 0.1 10^3/uL (0-0.2); Absolute Eosinophils 0.2 10^3/uL (0-0.7); Absolute Lymphocytes 3.2 10^3/uL (1.2-3.4); Absolute Monocytes 0.7 10^3/uL (0.1-0.6); Hematocrit 35.9 % (37.0-47.0); Hemoglobin 12.7 g/dL (12.0-16.0); Mean Corp Hgb Conc. 35.4 g/dL (33.0-37.0); Mean Corpuscular Hgb 30.8 pg (27.0-31.0); Mean Corpuscular Volume 86.9 fL (81.0-99.0); Mean Platelet Volume 9.1 fL (7.4-10.4); Nucleated Red Blood Cells % 0 %; Platelet Count 354 10^3/uL (130-400); Red Blood Cell Count 4.13 10^6/uL (4.20-5.40); Red Cell Dist. Width 12.3 % (11.5-14.5); White Blood Cell Count 7.2 10^3/uL (4.8-10.8)
[2024-01-14 04:40] LABS: Blood Urea Nitrogen 11 mg/dl (7-17); Calcium 9.7 mg/dl (8.4-10.2); Carbon Dioxide 27 mmol/L (22-30); Chloride 102 mmol/L (98-107); Estimated Creatinine Clearance 87 ml/min; Glucose 91 mg/dl (70-99); Potassium 4.1 mmol/L (3.5-5.1); Sodium 136 mmol/L (135-145); eGFR > 60.00
--- NOTE | 2024-01-14 06:55 | W.PN.HOSP.TC ---
Addendum entered and electronically signed by Oseas Lara MD 01/14/24 16:28:
I saw and evaluated the patient. I reviewed the resident�s note and agree with findings and plan as documented in the resident�s note.
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
-CT chest images reviewed. 4.5 x 2.5 x 4.6 cm lesion along the anterior pericardium which demonstrates posterior peripheral calcification.
- for robotic assisted mass resection/LN biopsy- 01/14 Dr. Short
-elevated Ach ab receptor level of 27.5, in line with likely MG diagnosis
-discussed case with CTS and planned to get surgical removal tomorrow
2. Acute dysphagia
Myasthenia gravis
-Patient will VSE and recommended to be n.p.o. with trial of liquid diet with understanding of aspiration risk
-MRI C-spine done last week outpatient basis was normal according to patient, patient brought in images/CD and provided to RN although unable to be located at this point.
-MRI c spine/brain normal today
-Started on trial of mestinon for MG and symptoms of dysphagia is improved today
-Cleared for liquid diet at this point
3. Upper extremity weakness
-Patient having both upper extremity weakness and change in sensation.
-Neurology evaluation reviewed, ab test ordered as recommended
-CPK level WNL
4. Acute hypoxic respiratory failure -resolved
-Was on BiPAP now currently on room air
-CT chest did not show any acute findings.
5. Cervical Radiculopathy with peripheral neuropathy
- cont new lyrica
6. Tobacco Abuse-
- counselled re quitting
- cont nicotine patch
7. Hyperthyroidism
- possibly autoimmune
- TSH normalizing to 0.6 now. at admit was 0.12
DVT proph - lovenox
Discussed care with neurology and CTS
Total time spent : 53 mins
Original Note:
Today's Communication/Plan
-
Continue monitoring breathing, patient will can resume liquid diet but NPO for surgery tomorrow
Assessment / Plan
Assessment / Plan
43 year old female presents with a neck pain, generalized weakness, and difficulty breathing. Patient has been fatigued for several weeks and has no other past medical history of illness. Patient has had neck pain with hand numbness for around 1-2
weeks now for which she had been seeing an orthopedic doctor. She was treated with a steroid taper from urgent care as well about 2 weeks ago and was recommended to get an MRI done. MRI was done on 12/28. Patient states that she has been having
difficulty swallowing food, water and her medications and also has been having difficulty breathing.
Mediastinal Mass adjacent to the pericardium
-4.5 x 2.5 x 4.6 cm lesion along the anterior pericardium which demonstrates posterior peripheral calcification.
-thymoma?
-for robotic assisted mass resection/LN biopsy- 01/14 Dr. Short
- echo 01/08- LV ejection fraction is 65-70%. Normal regional wall motion.
Normal right ventricular size and function.
No significant valvular disease.
- MG- acetylcholine rec ab positive and MUSK ab- pend
- cont care in IMU and monitor
- Neuro input appreciated-
- Mestinon 30mg started titrate to QID to 60mg QID as tolerated
- MRI brain- No acute intracranial abnormality noted. No evidence for intracranial metastasis. Probable benign calvarial lesions such as atypical arachnoid granulations or venous lakes, dermoid cyst or fibrous dysplasia, less likely
metastases/myeloma.
- Possible differentials:
1. Botox induced Myasthenia
2. Eaton Lambert Syndrome secondary to mediastinal mass
3. 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
Myasthenia Gravis due to possible reaction to Botox-
- Neuro input appreciated-
- Mestinon 30mg started titrate to QID to 60mg QID as tolerated
- MG- acetylcholine rec ab positive and MUSK ab- pend
Acute Dysphagia
- resolved leukocytosis
- check lateral neck/soft tissue x ray- reviewed WNL
- procal neg
- cont mucomyst
- Continue q shift NIF's
- Continue monitor CBC
- Strength has improved, patient has been upgraded from NPO to liquid diet once more
#Upper Extremity Weakness
-Numbness and weakness in bilateral upper extremities
-Neuro consulted, input appreciated
-Myasthenia gravis due to botox suspected
-market improvement in muscle strength upon treatment with Mestinon
# Acute Hypoxemic Respiratory Failure
- was on bipap now weaned to RA
# Cervical Radiculopathy with peripheral neuropathy
- improving
- cont new lyrica
# Tobacco Abuse-
- counselled re quitting
- cont nicotine patch
# Hyperthyroidism
- possibly autoimmune
- TSH-0.6
Anticipated Discharge: > 48 hours
Subjective/Interval History
-
Date of Service: January 14, 2024
Patient has been feeling much better and stronger after starting medication. Patient has improved from NPO to liquid diet. Surgery tomorrow.
Objective Data
-
Labs:
Laboratory Results
01/14/24
03:58
WBC 7.2
Hgb 12.7
Hct 35.9 L
Plt Count 354
Sodium 136
Potassium 4.1
Chloride 102
Carbon Dioxide 27
BUN 11
Creatinine 0.6
Glucose 91
Calcium 9.7
Vital Signs:
Vital Signs
Temp Pulse Resp BP Pulse Ox
97.8 F 68 17 91/60 94
01/14/24 03:40 01/14/24 06:00 01/14/24 06:00 01/14/24 06:00 01/14/24 06:00
I&O
01/12/24 01/13/24 01/14/24
06:59 06:59 06:59
Intake Total 1440 / 1440 550 / 550 540 / 540
Balance 1440 / 1440 550 / 550 540 / 540
Review of Systems
-
History Source: Patient
Constitutional: Denies Fever, Weight Loss or Fatigue
EENT: Reports Other (dysphagia)
Respiratory: Denies Cough or Trouble Breathing
Musculoskeletal: Reports Joint Pain
Neuro: Denies Weakness
Psych: Reports Anxious
Physical Exam
-
General: Well Developed, Well Nourished and No Apparent Distress
Respiratory: Clear to Auscultation and Non Labored Respirations
Cardiac: Regular Rhythm and S1/S2
Musculoskeletal: No Clubbing, No Cyanosis and No Edema
Neuro: Awake, Alert, Oriented, AO x 3, No Motor Deficits (weakness has improved remarkably) and Other (bilateral upper extremity weakness)
Psych: Calm
Data Reviewed
-
CT Scan: Report Reviewed by me, Discussed with Physician and Discussed with Patient
MRI: Report Reviewed by me, Discussed with Physician and Discussed with Patient
Labs: Labs Reviewed by me, Discussed with Physician and Discussed with Patient
[2024-01-14] MEDS: LYRICA 75 MG PO ×2 (07:42→19:57)
[2024-01-14] MEDS: MESTINON 30 MG PO ×3 (07:42→22:12)
[2024-01-14] MEDS: NICODERM TRANSDERMAL 7 MG TRANSDERM (07:42)
--- NOTE | 2024-01-14 08:00 | PTCARENOTE ---
Pt received from shift superintendent caustic cresylate RN. AAOx3. Pt primary language is Citizen Of [place] but can understand and speak Armenian well. NSR on manager monitoring. VSS. Evaluated by Speech again today. Cleared for full liquid diet. Educated about risks of aspiration. New PIV
placed in L FA per pt request. Plan for CVOR tomorrow for mediastinal resection with Dr. Short.
[2024-01-14 10:18] LABS: HCG, Urine Qualitative Screen Negative
--- NOTE | 2024-01-14 10:53 | W.PN.ONC2 ---
Today's Communication / Plan
-
follow for pathology
Impression
Impression
43-year-old female admitted with shortness of breath, dysphagia, cough, arm and neck pain found to have mediastinal mass
4.5 x 2.5 x 4.6 cm lesion along the anterior pericardium with posterior peripheral calcification
dysarthria/dysphagia -neurology following, GI
Leukocytosis
MRI of the spine unremarkable
Plan
Plan
for robotic assisted mass resection/LN biopsy- 01/14 Dr. Short
Cervical MRI reviewed without significant findings other than mild degenerative disease
Subjective/Objective
Subjective
Vital Signs:
Vital Signs
Temp Pulse Resp BP Pulse Ox
98.7 F 77 13 102/79 97
01/14/24 07:15 01/14/24 08:00 01/14/24 08:00 01/14/24 08:00 01/14/24 08:00
Lab Results:
Laboratory Data
WBC 7.2 10^3/uL (4.8-10.8) 01/14/24 03:58
Hgb 12.7 g/dL (12.0-16.0) 01/14/24 03:58
Plt Count 354 10^3/uL (130-400) 01/14/24 03:58
PT 13.8 Sec (11.4-14.6) 01/09/24 03:56
INR 1.06 01/09/24 03:56
APTT 24.7 Sec (23.4-35.0) 01/09/24 03:56
eGFR > 60.00 01/14/24 03:58
Physical Exam
HEENT: Moist Mucous Membranes and Other (mild ptosis); No Jaundice
Neuro: Other (dysarthria)
--- NOTE | 2024-01-14 14:34 | PTOTSP ---
Dysphagia Therapy
Patient presents with signs concerning for pharyngeal dysphagia/aspiration with pureed consistencies this date. Dysphagia is likely due to Myasthenia Gravis for which patient has now started medical treatment. Patient subjectively feels her
symptoms have improved. Patient was unable to tolerate NGT and would like to start an oral diet understanding risks/complications of aspiration.
Recommend:
1. Thin Liquids (full liquids to allow thin purees per pt GOC)
2. Medications - in liquid form and/or crushed and mixed in applesauce
3. Strategies: upright to 90 degrees, small sips/bites, slow rate, multiple swallows, alternate sips/bites, intermittent cough/swallow
4. Oral care 3x daily
5. Consider repeat video swallow study to objectively assess pharyngeal swallow prior to further solid advancement, after OR and treatment of MG
--- NOTE | 2024-01-14 15:24 | PTCARENOTE ---
Pt transferred to CVICU. Report given to JUNE.
--- NOTE | 2024-01-14 15:46 | PTCARENOTE ---
Patient received from IMU as transfer in anticipation of surgical procedure tomorrow. VS obtained, NSR via cm, SaO2 @ 100% on RA. Denies pain. Moz[place]ican speaking but able to communicate in Hungarian. Ambulating ad wily in room, steady. Patient updated to
plan of care, in agreement. See work list for full assessment and interventions performed.
--- NOTE | 2024-01-14 16:49 | CM ---
Chart reviewed. Preoperative and postoperative instructions and restrictions reviewed with the patient, along with showering guidelines. Patient is independent of ADLS, lives with her mother, and children in a apartment, 2 nd floor, full
flight of stairs, 0 DME. Patient is outside of driving radius for CT Transitional RN. Patient may need VN. Plan is for the patient to return home. CM to follow
--- NOTE | 2024-01-14 17:08 | W.CVOR.SURPR ---
CVOR Surgeon Immed Pre Op
-
I have examined this patient prior to performance of the scheduled procedure.
The patient's condition is unchanged from the time of the dictated/written History and
Physical and the patient is able to undergo the scheduled procedure.
Discussed plan of care, will perform RATS L side, mediastinal mass resection, patient is amenable.
--- NOTE | 2024-01-14 20:00 | PTCARENOTE ---
Received pt from day shift; pt resting comfortably in bed; pt is AAOX4, denies pain; NSR on monitor, VSS; heart sounds audible, radial pulses and DP pulse palpable, no edema noted; lungs CTA, diminished st b/l bases, 98% on RA; pt voiding clear
yellow urine; skin CDI; PIV maintained; pt is awaiting CT surgery tomorrow, 01/15/24. call epperson within reach, will continue to monitor.
[2024-01-15] VITALS (18 sets, daily range): BP systolic 93–137; BP diastolic 61–85; BMI 18.3
--- NOTE | 2024-01-15 | PTCARENOTE ---
Pt assessment unchanged; NSR on monitor; VSS; pt clipped and CHG body wash used for surgical prep; call epperson within reach; will continue to monitor.
--- NOTE | 2024-01-15 04:00 | PTCARENOTE ---
Pt assessment unchanged; VSS, NSR on monitor; AM labs drawn; call epperson within reach; will continue to monitor.
[2024-01-15 04:38] LABS: % Basophils 0.7 % (0-2); % Eosinophils 2.5 % (0-6); % Immature Granulocytes 0.2 % (0-0.5); % Lymphocytes 45.3 % (20.5-51.1); % Monocytes 8.2 % (1.7-9.3); % Neutrophils 43.1 % (42.2-75.2); Absolute Basophils 0.1 10^3/uL (0-0.2); Absolute Eosinophils 0.2 10^3/uL (0-0.7); Absolute Monocytes 0.7 10^3/uL (0.1-0.6); Absolute Neutrophils 3.8 10^3/uL (1.4-6.5); Hematocrit 36.7 % (37.0-47.0); Hemoglobin 13.1 g/dL (12.0-16.0); Mean Corp Hgb Conc. 35.7 g/dL (33.0-37.0); Mean Corpuscular Volume 89.5 fL (81.0-99.0); Mean Platelet Volume 9.4 fL (7.4-10.4); Nucleated Red Blood Cells % 0 %; Platelet Count 378 10^3/uL (130-400); Red Cell Dist. Width 12.2 % (11.5-14.5); White Blood Cell Count 8.7 10^3/uL (4.8-10.8)
[2024-01-15 05:04] LABS: Blood Urea Nitrogen 10 mg/dl (7-17); Calcium 9.5 mg/dl (8.4-10.2); Carbon Dioxide 28 mmol/L (22-30); Chloride 101 mmol/L (98-107); Estimated Creatinine Clearance 87 ml/min; Glucose 97 mg/dl (70-99); Potassium 4.1 mmol/L (3.5-5.1); Sodium 135 mmol/L (135-145); eGFR > 60.00
--- NOTE | 2024-01-15 06:00 | PTCARENOTE ---
Pt clipped and prepped for DOS 01/14/24. Pt has taked x2 CHG showers. Pre-op check list reviewed. New gown and sheets provided. pt is 2nd case today and is awaiting OR.
[2024-01-15] MEDS: MESTINON 30 MG PO ×3 (07:55→21:03)
[2024-01-15] MEDS: LYRICA 75 MG PO (07:55)
--- NOTE | 2024-01-15 08:30 | PTCARENOTE ---
Received pt from shift supervisor RN; pt AAOx3 and resting comfortably in chair; NSR on monitor and VSS; Lungs clear; positive bowel sounds; pt voiding clear yellow urine; no edema noted; palpable pulses throughout; pt NPO for CVOR today; see nursing
documentation for further details.
--- NOTE | 2024-01-15 11:43 | CM ---
Chart reviewed. Patient is in the OR today. Patient is independent of ADLS, lives with her , mother and 2 sons in a apartment, 2nd floor, full flight of stairs, 0 DME. Patient is outside of driving radius for CT Transitional RN. CM to
evaluate if patient will need VN or a follow up phone call by CT Transitional RN. Plan is for the patient to return home. CM to follow
--- NOTE | 2024-01-15 11:59 | W.PN.NEURO.1 ---
Documented by User: Rhonda Flowers NP 01/15/24 12:40
Today's Communication / Plan
-
.
Neuro Assessment/Plan
Assessment
This is a 43-year-old RH female who presented to on 01/09/24 with report of cough, shortness of breath, difficulty swallowing, and weakness. CT chest demonstrates a lesion along the anterior pericardium and myasthenia gravis antibody testing is
positive. Patient also noted receiving Botox injections throughout her face.
-MRI brain 01/14/24: No acute intracranial abnormality noted. No evidence for intracranial metastasis. Probable benign calvarial lesions such as atypical arachnoid granulations or venous lakes, dermoid cyst or fibrous dysplasia, less likely
metastases/myeloma.
-MRI Cervical Spine 01/14/24: No suspicious lesions or enhancement.
I. Botox induced myasthenia gravis.
II. Mediastinal mass.
Plan
-Continue Mestinon 30mg TID, can titrate up to 60mg QID if needed. Monitor for diarrhea.
-PT/OT/ST evaluations.
-CT surgery today.
-Would avoid cosmetic Botox in the future.
-DVT prophylaxis.
-Follow-up with Neurology as an outpatient, may see the AGRICULTURAL ENGINEERING TECHNOLOGIST or one of the physicians.
Subjective/Objective
Subjective Data
Date of Service: January 15, 2024
No acute events overnight. Patient reports that her strength and swallowing continue to feel improved. She denies any headache, dizziness, diplopia, speech/swallow difficulty, numbness, and weakness. She is tolerating Mestinon 30mg TID and denies
diarrhea thus far.
Objective Data
Vital Signs
Temp Pulse Resp BP Pulse Ox
98.1 F 71 16 93/61 98
01/15/24 07:56 01/15/24 07:52 01/15/24 07:56 01/15/24 07:52 01/15/24 10:18
Lab Results
01/15/24 04:20
01/15/24 04:20
PT 13.8 Sec (11.4-14.6) 01/09/24 03:56
INR 1.06 01/09/24 03:56
APTT 24.7 Sec (23.4-35.0) 01/09/24 03:56
Sodium 135 mmol/L (135-145) 01/15/24 04:20
Potassium 4.1 mmol/L (3.5-5.1) 01/15/24 04:20
BUN 10 mg/dl (7-17) 01/15/24 04:20
Glucose 97 mg/dl (70-99) 01/15/24 04:20
Calcium 9.5 mg/dl (8.4-10.2) 01/15/24 04:20
Phosphorus 4.5 mg/dl (2.5-4.5) 01/12/24 08:16
Qld-M-[id number] Pept 36.6 pg/ml 01/09/24 02:34
Patient Allergies
Botulinum Toxin Adverse Reaction (Severe, Verified 01/13/24 20:51)
weakness
Review of Systems
-
History Source: Patient
EENT: Negative Blurry Vision, Decreased Vision or Swallowing Difficulty
Respiratory: Negative Cough or Trouble Breathing
Abdomen/GI: Negative Diarrhea
Neuro: Negative Dizzy, Headache, Weakness, Numbness, Ataxia, Tremors or Speech Problem
Physical Exam
-
General: Well Developed, Well Nourished and No Apparent Distress
Eyes: No Ptosis and PERRLA
HEENT: Normocephalic and Atraumatic
Neck: Full Range of Motion
Respiratory: No Dyspnea
GI: Non-distended
Extremities: No Clubbing, No Cyanosis and No Edema
Psych: Unremarkable
Extended Neurological Exam
Mood & Affect: Mood Unremarkable and Affect Unremarkable
Attention Span & Concentration: Awake, Alert, Interactive and No Difficulty with 2 Step Request
Memory: Unremarkable (AAOx3) and Able to Recall
Tremor: Hand Tremor Absent and Head Tremor Absent
Involuntary Movement: None
Speech: Quality Unremarkable, Quantity Unremarkable and Rate of Production Unremarkable
Cranial Nerve II: Left Eye: Pupillary Reactivity Unremarkable, Pupillary Size Unremarkable and Visual Rocha Intact
Cranial Nerve II: Right Eye: Pupillary Reactivity Unremarkable, Pupillary Size Unremarkable and Visual Rocha Intact
Cranial Nerves III, IV, : Extraocular Movement: Extraocular Movement Full in all Directions
Cranial Nerve V: Facial Sensation: Intact to Light Touch
Cranial Nerve VII: Facial Symmetry: Normal Facial Symmetry
Cranial Nerve VIII: Hearing: Unremarkable Hearing to Normal Conversational Volume
Cranial Nerves IX, X: Palate Movement: Palate Elevation Symmetric
Cranial Nerve XI: Shoulder Shrug: Unremarkable
Cranial Nerve XII: Tongue Protusion: Midline
Muscle Strength, Overall: Full Throughout
Muscle Bulk & Tone: Bulk Unremarkable and Tone Unremarkable
Pronator Drift: No Drift in Upper Extremities and No Drift in Lower Extremities
Touch Sensation: Unremarkable
Coordination: Aqfcay-afff-bumcks Testing Unremarkable
Data Reviewed
-
CT Head: Report Reviewed and Image Reviewed
MRI Head: Report Reviewed and Image Reviewed
MRI Cervical Spine: Report Reviewed and Image Reviewed
Medical Test Reports: Report Reviewed (myasthenia panel)
Labs: Report Reviewed
Reviewed with: Physician and Patient
Medications
-
Active Medications
Generic Name Dose Route Start Last Admin
Trade Name Freq PRN Reason Stop Dose Admin
Acetaminophen 650 mg 01/09/24 03:46 01/13/24 21:48
Acetaminophen 325 Mg Tablet PO 02/06/24 03:45 650 mg
Q4HPRN PRN Administration
Mild Pain / Temp > 101
Bupivacaine HCl 30 ml/ 30.45 mls @ 0 mls/hr 01/15/24 06:00
Epinephrine HCl 0.15 mg/ INJ 01/16/24 06:01
Dexamethasone Sodium Phosphate DIRECTED TRAMAINE
3 mg/ Device
As Directed
Levalbuterol HCl 1.25 mg 01/11/24 14:00 01/12/24 19:14
Levalbuterol 1.25 Mg/3 Ml Ampul INH 1.25 mg
R Q6HPRN PRN Administration
SOB,COUGH,WHEEZE
Protocol
Morphine Sulfate 2 mg 01/09/24 10:40
Morphine 2 Mg/Ml Syringe IV 01/23/24 03:45
Q4HPRN PRN
Moderate-Severe Pain
Nicotine 7 mg 01/09/24 15:00 01/14/24 07:42
Nicotine 7 Mg Patch TRANSDERM 02/06/24 14:59 7 mg
DAILY TRAMAINE Administration
Pregabalin 75 mg 01/09/24 22:00 01/15/24 07:55
Pregabalin 75 Mg Capsule PO 02/06/24 21:59 75 mg
BID TRAMAINE Administration
Pyridostigmine Goode 30 mg 01/14/24 16:00 01/15/24 07:55
Pyridostigmine 60 Mg Tablet PO 02/11/24 15:59 30 mg
TID TRAMAINE Administration
Senna/Docusate Sodium 1 tablet 01/11/24 14:15 01/11/24 17:03
Docusate W/Senna (Rima-Colace) Tablet PO 02/08/24 14:14 1 tablet
DAILYPRN PRN Administration
Constipation
Sodium Chloride 0 flush 01/09/24 02:00
Sodium Chloride 0.9% (Flush) Syringe IV 02/06/24 01:59
PER PROTOCOL TRAMAINE
Home Medications
�Medication �Instructions �Recorded
No Meds [No Current Medications] 01/09/24

Documented by User: Humberto Mao MD 01/15/24 21:28
Today's Communication / Plan
-
43 yr. old lady with h/o new onset bulbar symptoms secondary to Botox injections and mediastinal mass(thymoma vs teratoma) who is Acetycholine receptor antibody + responding to Mestinon [address]ID
[address] surgery for excision of mediastinal mass
--- NOTE | 2024-01-15 12:08 | PTCARENOTE ---
Pt sent to CVOR via bed.
--- NOTE | 2024-01-15 13:45 | W.PN.HOSP.TC ---
Addendum entered and electronically signed by Oseas Lara MD 01/15/24 17:40:
I saw and evaluated the patient. I reviewed the resident�s note and agree with findings and plan as documented in the resident�s note.
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
-CT chest images reviewed. 4.5 x 2.5 x 4.6 cm lesion along the anterior pericardium which demonstrates posterior peripheral calcification.
-for robotic assisted mass resection/LN biopsy by Dr Short today.
-elevated Ach ab receptor level of 27.5, in line with likely MG diagnosis
-discussed case with CTS and planned to get surgical removal tomorrow
2. Acute dysphagia
Myasthenia gravis
-Patient will VSE and recommended to be n.p.o. with trial of liquid diet with understanding of aspiration risk
-MRI C-spine done last week outpatient basis was normal according to patient, patient brought in images/CD and provided to RN although unable to be located at this point.
-MRI c spine/brain normal
-Started on trial of mestinon for MG and symptoms of dysphagia/weakness is improved.
-Cleared for liquid diet at this point
3. Upper extremity weakness
-Patient having both upper extremity weakness and change in sensation.
-Neurology evaluation reviewed, ab test ordered as recommended
-CPK level WNL
4. Acute hypoxic respiratory failure -resolved
-Was on BiPAP now currently on room air
-CT chest did not show any acute findings.
5. Cervical Radiculopathy with peripheral neuropathy
- cont new lyrica
6. Tobacco Abuse-
- counselled re quitting
- cont nicotine patch
7. Hyperthyroidism
- possibly autoimmune
- TSH normalizing to 0.6 now. at admit was 0.12
DVT proph - lovenox
Original Note:
Today's Communication/Plan
-
Patient undergoing cardiothoracic surgery
Assessment / Plan
Assessment / Plan
43 year old female presented with neck pain, generalized weakness, and difficulty breathing. Patient is suspected to have myasthenia gravis and was started on Mestinon 30g. Patient is undergoing cardiothoracic surgery today for excision of her
mediastinal mass that is suspected to be a thymoma.
Mediastinal Mass adjacent to the pericardium
-4.5 x 2.5 x 4.6 cm lesion along the anterior pericardium which demonstrates posterior peripheral calcification.
-thymoma?
-for robotic assisted mass resection/LN biopsy- 01/14 Dr. Short
- echo 01/08- LV ejection fraction is 65-70%. Normal regional wall motion.
Normal right ventricular size and function.
No significant valvular disease.
- MG- acetylcholine rec ab positive and MUSK ab- pend
- Neuro input appreciated-
- Mestinon 30mg started titrate to QID to 60mg QID as tolerated
- MRI brain- No acute intracranial abnormality noted. No evidence for intracranial metastasis. Probable benign calvarial lesions such as atypical arachnoid granulations or venous lakes, dermoid cyst or fibrous dysplasia, less likely
metastases/myeloma.
- Possible differentials:
1. Botox induced Myasthenia
2. Eaton Lambert Syndrome secondary to mediastinal mass
3. 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
- Patient out for Cardiothoracic surgery
Myasthenia Gravis due to possible reaction to Botox-
- Neuro input appreciated-
- Mestinon 30mg started titrate to QID to 60mg QID as tolerated
- MG- acetylcholine rec ab positive and MUSK ab- pend
Acute Dysphagia
- resolved leukocytosis
- check lateral neck/soft tissue x ray- reviewed WNL
- procal neg
- cont mucomyst
- Continue q shift NIF's
- Continue monitor CBC
- Patient NPO since last night due to surgery today
Upper Extremity Weakness
-Numbness and weakness in bilateral upper extremities
-Neuro consulted, input appreciated
-Myasthenia gravis due to botox suspected
-market improvement in muscle strength upon treatment with Mestinon
Acute Hypoxemic Respiratory Failure
- was on bipap now weaned to RA
Cervical Radiculopathy with peripheral neuropathy
- improving
- cont new lyrica
Tobacco Abuse-
- counselled re quitting
- cont nicotine patch
Hyperthyroidism
- possibly autoimmune
- TSH-0.6
Anticipated Discharge: > 48 hours
Subjective/Interval History
-
Date of Service: January 15, 2024
Patient was seen before her surgery this morning. Patient was a bit anxious but was feeling stronger.
Objective Data
-
Labs:
Laboratory Results
01/15/24
04:20
WBC 8.7
Hgb 13.1
Hct 36.7 L
Plt Count 378
Sodium 135
Potassium 4.1
Chloride 101
Carbon Dioxide 28
BUN 10
Creatinine 0.6
Glucose 97
Calcium 9.5
Vital Signs:
Vital Signs
Temp Pulse Resp BP Pulse Ox
98.1 F 71 16 93/61 98
01/15/24 07:56 01/15/24 07:52 01/15/24 07:56 01/15/24 07:52 01/15/24 10:18
I&O
01/14/24 01/15/24 01/16/24
06:59 06:59 06:59
Intake Total 540 / 540 370 / 370
Output Total 300 / 300
Balance 540 / 540 70 / 70
Review of Systems
-
History Source: Patient
Constitutional: Denies Fever, Chills or Weakness
Respiratory: Denies Cough, Trouble Breathing or Wheezing
Cardiac: Denies Chest Pain, Diaphoresis, Palpitations or Syncope
Musculoskeletal: Reports Joint Pain; Denies Joint Swelling, Edema or Muscle Weakness
Neuro: Denies Dizzy, Headache or Weakness
Physical Exam
-
General: Well Developed, Well Nourished and No Apparent Distress
Respiratory: Clear to Auscultation and Non Labored Respirations
Cardiac: Regular Rhythm and S1/S2
Musculoskeletal: No Clubbing, No Cyanosis and No Edema
Neuro: Awake, Alert, Oriented, AO x 3 and No Motor Deficits (5/5 strength bilateral upper extremity)
Psych: Calm
Data Reviewed
-
Diagnostic Radiology: Report Reviewed by me, Discussed with Physician and Discussed with Patient
MRI: Report Reviewed by me, Discussed with Physician and Discussed with Patient
Labs: Labs Reviewed by me, Discussed with Physician and Discussed with Patient
--- NOTE | 2024-01-15 14:30 | W.PN.CT.SURG ---
Addendum entered and electronically signed by Zenon Short MD 01/15/24 15:31:
Additional Notes:
The mass was adherent to the left phrenic nerve. However, there was no evidence of invasion to either the pericardium or the phrenic itself. There was a defined plane. Using a vessel sealing device, I traced along the left phrenic until the mass was
no longer present. The phrenic was spared. I then marched toward the anterior mediastinum and dissected until there was no longer fat present. I continued toward the innominate vein and arch to the point in which the mammary vein joined the
innominate vein. There were a number of larger vessels in this region which were sealed with a vessel sealer and also clipped for additional hemostasis. She had very little anterior mediastinal fat or thymus gland. Her heart was also rotated
leftward.
Original Note:
CT Surgery Operative Note
-
THORACIC SURGERY OPERATIVE REPORT
Preoperative Diagnosis: Mediastinal Mass, Left side of pericardium
Postoperative Diagnosis: Same
Procedure(s) Performed:
1. Robotic assisted thoracic surgery (RATS) with mediastinal mass resection, left sided
Date of Surgery: 01/15/24
Comorbidities:
1. Mediastinal Mass
2. Myasthenia Gravis
3. Acute respiratory failure
4. Peripheral Neuropathy
5. Hyperthyroidism
6. Dysphagia
Attending Surgeon: Zenon Short MD, MS
Assistants: Kellie Okeefe PA-C (present and necessary to sound assistant, exchanging robotic instruments, retraction, suction, exposure, suture management, and wound closure under my direction)
Anesthesiology: Tyrone Perez MD and Kristie Hernandez CRNA
Scrub and Circulating RNs: Alon Warren RN, Antonio Abel RN
Anesthesia: Dual Lumen GETA
EBL: 20 cc
Products: None
Indication(s) for Procedures: This is a 43-year-old female who was previously healthy presented with respiratory failure as well as upper extremity weakness and dysphagia. She recently underwent Botox injection which is suspected to have
exacerbated an episode of myasthenia gravis. She did undergo antibody testing which was positive. CT scan demonstrated a large 4 x 3 cm mass of the left caty phrenic region along the pericardium. He was offered surgical resection as this was very
likely to be a thymoma.
Findings: There were no obvious intrathoracic lesions concerning for metachronous disease. She did have a large solid cystic feeling mass on the anterior border of the phrenic nerve. There is no evidence of invasion into the pericardium. The mass
was resected using a vessel sealer and then phrenic nerve was spared going along the plane and the mass being careful not to rupture the capsule. Any anterior mediastinal fat consistent with thymus was resected along with the mass. She had a very
minimal amount of anterior mediastinal fat. Following surgery she was able to be extubated without complication. Intraoperative frozen section was performed and the pathologist noted that there was a semisolid mass with lymphoid proliferation
could not rule out thymoma could not rule out lymphoma. Final pathology will be pending several days from now.
Specimen(s):
Mediastinal mass
Description of Procedure: The patient was taken to the operating room. Induction via general anesthesia with endotracheal intubation was performed and peripheral venous access and arterial monitoring were inserted. Their identity and procedure to be
performed were verified and they were positioned with the left side bumped up on the operating table. The patient was then prepped and draped in a sterile fashion. A preoperative time-out was performed with all members of the team present. A Veress
needle was used to insufflate the chest after isolating the lung at the apex. An 8 mm port was then inserted under camera visualization. 2 additional 8 mm ports were placed along the mid axillary line moving inferiorly. A 12 mm air seal port was
then placed along the lower portion of the hemithorax.
The thoracic cavity was inspected for evidence of metastatic disease. None was observed. The mass was obvious and located just anterior to the phrenic nerve without obvious invasion. Using a vessel sealer a plane was developed between the
pericardium and the fat and the mass was then sequentially resected. There was significant mount of vascularity coming from the cephalad portion heading towards the mass. This was taken with the vessel sealer and additional clips were applied for
hemostasis. Once the mass was free a small specimen bag was inserted through the air seal port and the mass was then resected intact from the chest cavity. I then inspected for hemostasis and was satisfied and so a chest tube was then placed for
drainage and the lung was fully inflated after undocking instruments. Incisions were closed in 3 layers including the fascia, dermal, and epidermis. Additional local anesthesia was injected into all incision sites. The skin wound was cleansed and
sealed with Dermabond glue.
All instrument, sponge, and needle counts were confirmed to be correct x 2 at the end of the operation. The patient was transferred to the cardiac intensive care unit extubated in critical but stable condition.
I, Dr. Zenon Short, was present, scrubbed for, and performed all critical elements of this procedure.
Zenon Short MD, MS
Cardiothoracic Surgeon
[facility]
This operative dictation was created using the [employer] dictation system. Please excuse any grammatical, typographical, or 'sound alike' errors
[2024-01-15] MEDS: TORADOL 15 MG IV (14:46)
[2024-01-15] MEDS: NICODERM TRANSDERMAL 7 MG TRANSDERM (14:48)
[2024-01-15] MEDS: TYLENOL PO (14:50)
[2024-01-15] MEDS: ANCEF 10 IV ×2 (14:50)
--- NOTE | 2024-01-15 14:58 | PTCARENOTE ---
Pt received from CVOR at 1430; AAOx3; Responds spontaneously to RN and follows commands; Pupils round, reactive, and equal; NSR rhythm on monitor; VSS; CTx1 to -20 cm wall suction - no air leak, tidaling, or crepitus noted; Normoactive BS; Due to
void; Right A-line zeroed and level and PIV x3 patent; Pt given PRN IV Toradol for pain and now resting comfortably in bed; all surgical sites C/D/I; see nursing documentation for further details.
[2024-01-15] MEDS: NEURONTIN 100 MG PO ×2 (15:42→21:03)
[2024-01-15] MEDS: FLEXERIL 5 MG PO (15:42)
--- NOTE | 2024-01-15 16:03 | PTCARENOTE ---
Right A-line removed per CVNP order.
[2024-01-15] MEDS: ULTRAM 100 MG PO (17:00)
--- NOTE | 2024-01-15 17:40 | W.PN.INTV ---
Today's Communication / Plan
Recommendations
Up OOB as tolerated
Pain control
Post-operative monitoring as per CT surgery
Maintain SpO2 >90-94%
Follow-up pathology from OR today
Continue with Mestinon and monitor for diarrhea
Nicotine patch; tobacco cessation reinforced
Front Office Secretary/pulmonary service will continue to follow along while patient remains in CVICU.
Assessment
-
Assessment: 43-year-old female with a past medical history of tobacco use disorder who presents with neck pain, generalized weakness, shortness of breath and cough. She says she has been fatigued for several weeks, denying any preceding illness.
Her neck pain with hand numbness began about 1-2 weeks ago. She saw an orthopedic doctor few days ago after she was treated with a steroid taper from an urgent care about 1 week prior, and apparently orthopedic recommended splinting with an
outpatient MRI. MRI was done on 12/29/2023. Patient says she has been having trouble swallowing food/water and medications. She believes she may have choked on a muscle relaxer yesterday. In the ER she was afebrile to 97.6 �F, pulse rate 98,
respiratory rate 18, BP 155/106 and saturating 90% on room air. Labs showed leukocytosis to 12.4, platelets 441, ABG showed pH 7.3, pCO2 50. COVID antigen negative. CXR showed a rounded masslike opacity of the left superior margin of the heart.
Chest CT with IV contrast was obtained showing a 4.5 x 2.5 x 4.6 cm lesion along the anterior pericardium with posterior peripheral calcification. There is also bibasilar atelectasis (L >R) with possible mucous plugging in the right lower lobe.
Also right middle lobe atelectasis. CT head showed no acute intracranial abnormality. Patient given albuterol in the ER +1 L NS 0.9%. After patient returned to the ER from CT scan, she was more hypoxic. She was placed onto nonrebreather mask and
ABG obtained showing hypercapnia. BiPAP started onto the patient and she was transferred to the ICU for further care. She was briefly given antibiotics, downgraded out of ICU and is now awaiting mediastinal mass resection. Front Office Secretary services
asked to see patient again postoperatively in CVICU.
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
Impression:
#Left upper lobe/mediastinal mass along the pericardium (4.5 x 2.5 x 4.6 cm with posterior peripheral calcification, suspicious for thymoma vs lymphoma vs primary bronchogenic carcinoma vs germ cell tumor; less likely cyst) s/p robotic assisted
thoracic surgery with mediastinal mass resection (POD#0)
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
#Acute respiratory failure with hypoxia + hypercapnia - improved
#Acute cough with bibasilar mucoid/secretion impaction with bibasilar + RML atelectasis, due to aspiration pneumonia/pneumonitis
#Generalized weakness with bilateral hand numbness (symptoms began about 1 week ago) - unclear cause, possibly due to mass effect from TONE mass vs worsening cervical radiculopathy
#Tobacco use disorder (smokes 5-7 cigarettes per day for 'few years')
#Reported history of cervical radiculopathy
#Subclinical hyperthyroidism (TSH: 0.12, free T4: 1.64)
Plan:
- Continue supplemental O2 and maintain SpO2 >90-94%
- Postoperative monitoring as per CVICU
- Pain control
- Encourage incentive spirometer
- prn nebulized bronchodilators
- Transfuse if needed to maintain Hb>7, plt>50k (given her post-operative status)
- CT surgery managing left-sided chest tube, currently on -[id number] suction
- Daily CXR
- Monitor chest tube for air leak and fluid accumulation
- Continue with pyridostigmine as per neurology
- Outpatient follow-up with neurology
- Patient recommended to avoid cosmetic Botox in the future
- Monitor for diarrhea
- She received 2-3 days of Unasyn (given 01/08 evening - 01/11 morning) for aspiration pneumonia/pneumonitis Dx earlier this admission
- Legionella + strep pneumonia urine antigens were both negative
- Pt unable to produce sputum for culture
- Continue aspiration precautions
- Nicotine patch - tobacco cessation reinforced
- Oncology consulted - recs appreciated
- Tumor studies negative (AFP, hCG, +LDH)
- Follow-up surgical specimen from OR today
- Maintain MAP>65
- Replete electrolytes with K>4, Mg>2
- Maintain euglycemia with goal BG 140-180
- PT/OT
- DVT ppx: LMWH
Critical care services will continue to follow along while patient remains in CVICU.
Total time spent today was 75 minutes for this encounter. Time includes reviewing laboratory test/imaging results, reviewing pertinent medical records, obtaining and reviewing medical history, performing an appropriate exam, ordering medications,
tests and procedures. Time also includes documentation of this encounter, coordinating patient care and communicating with other healthcare professionals. Total time does not include separately billed tests performed on this date of service.
Data:
CT chest with IV contrast 01/09/2024: Mildly motion degraded examination
1. There is a 4.5 x 2.5 x 4.6 cm lesion along the anterior pericardium which demonstrates posterior peripheral calcification. This demonstrates Hounsfield units more consistent with a soft tissue lesion rather than cyst. Differential includes a
pleural-based lesion, colonic lesion, lymphoma or germ cell tumor. Findings are less likely atypical pericardial cyst. There is no mediastinal, hilar or axillary lymphadenopathy.
2. Left greater than right bibasilar atelectasis with questionable mucous plugging in the right lower lobe. Right middle lobe atelectasis.
CT head 01/09/2024:
No acute intracranial abnormality noted.
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
CXR 01/15/2024:
Left-sided chest tube as described above. No pneumothorax.
Moderate right lower lobe atelectasis. Stable.
Subjective Dataa
Subjective Data
Date of Service:
Date of Service: January 15, 2024
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
Subjective:
Patient seen and evaluated today at bedside. Patient had a mediastinal mass resection today, with EBL 20 cc and then was transferred to the CVICU for further care. When I saw the patient she was on a facemask at 1.5 L/min, saturating 99%, with
heart rate 109 and BP 165/73 (via right radial A-line). Left-sided pleural chest tube on -20 cm of suction. Patient was still drowsy from anesthesia but was in no acute distress.
Review of Systems
General: Other (Unable to obtain due to patient's acute clinical status/drowsiness post operation/sedation)
Objective Data
Data Reviewed
Vital Signs / I&O / Oxygen:
Vital Signs
Temp Pulse Resp BP Pulse Ox
97.5 F 90 16 104/61 98
01/15/24 14:30 01/15/24 17:00 01/15/24 16:30 01/15/24 17:00 01/15/24 17:00
Intake and Output
01/14/24 01/15/24 01/16/24
06:59 06:59 06:59
Intake Total 540 / 540 370 / 370 30 / 30
Output Total 300 / 300 0 / 0
Balance 540 / 540 70 / 70 30 / 30
SaO2 98
Nasal Cannula flow liters per 6
minute
Physical Exam
General: Respiratory Distress (Negative), Comfortable, Chills (Negative) and Sweats (Negative)
HEENT: Normocephalic and Anicteric
Cardiovascular: S1-S2, Peripheral Edema (Negative) and Other (Tachycardic)
Respiratory: Clear, Wheeze (Negative), Crackles (Negative), Rhonchi (Negative) and Non-Labored Respirations
GI: Soft, Non Distended, Non Tender and Normal Bowel Sounds
Neurology: Tremors (Negative) and Other (Drowsy in the setting of recent sedation/operation)
Skin: Warm, Dry and Jaundice (Negative)
Labs/Micro/Reports
Lab Data
01/15/24 04:20
01/15/24 04:20
[2024-01-15] MEDS: ANCEF 5 IV (18:05)
[2024-01-15] MEDS: SENOKOT PO (19:55)
[2024-01-15] MEDS: LOPRESSOR 12.5 MG PO (20:00)
--- NOTE | 2024-01-15 20:30 | PTCARENOTE ---
Pt assessment unchanged; SR w/ ST on monitor; VSS; Pt still due to void s/p surgery - bladder scanned for 262 ml and pt states no urge to urinate; will continue to monitor
[2024-01-15] MEDS: TYLENOL 1000 MG PO (21:03)
[2024-01-15] MEDS: DILAUDID 2 MG PO (21:27)
--- NOTE | 2024-01-15 23:30 | PTCARENOTE ---
assumed care of pt from previous RN. pt A&Ox4, resting in bed at time of assessment. SR on tele-monitor. palpable peripheral pulses. no edema noted. POX 95-97% on RA. CTx1 (L pleural) to -20cm wall suction, draining sanguineous drainage. no air leak
noted. abd s/n, +BS. pt assisted to BSC w/o issue. voided clear, yellow urine. PIV x3 intact. all surgical sites stable. call epperson within reach.
[2024-01-16] MEDS: TORADOL 15 MG IV (03:49)
[2024-01-16] MEDS: ANCEF 5 IV ×2 (03:49→12:09)
--- NOTE | 2024-01-16 04:00 | PTCARENOTE ---
assessment remains unchanged. VSS. CT drainage within acceptable limits. AM labs collected and sent. AM plan of care discussed w/ pt. pt in agreement.
[2024-01-16 04:07] VITALS: BP 112/79
[2024-01-16 04:30] LABS: Hematocrit 36.2 % (37.0-47.0); Hemoglobin 12.5 g/dL (12.0-16.0); Mean Corp Hgb Conc. 34.5 g/dL (33.0-37.0); Mean Corpuscular Hgb 31.5 pg (27.0-31.0); Mean Corpuscular Volume 91.2 fL (81.0-99.0); Mean Platelet Volume 9.7 fL (7.4-10.4); Platelet Count 386 10^3/uL (130-400); Red Blood Cell Count 3.97 10^6/uL (4.20-5.40); Red Cell Dist. Width 12.1 % (11.5-14.5); White Blood Cell Count 15.6 10^3/uL (4.8-10.8)
[2024-01-16 04:55] LABS: Blood Urea Nitrogen 12 mg/dl (7-17); Calcium 9.8 mg/dl (8.4-10.2); Carbon Dioxide 26 mmol/L (22-30); Chloride 100 mmol/L (98-107); Estimated Creatinine Clearance 98 ml/min; Glucose 100 mg/dl (70-99); Sodium 134 mmol/L (135-145); eGFR > 60.00
--- NOTE | 2024-01-16 05:47 | W.PN.CT ---
Today's Communication / Plan
-
-No issues overnight, patient does have postsurgical pain
-CT output 40mL for 12 hrs./ 60mL since surgery
-discontinue CT's
-discharge planning.
Assessment / Plan
-
s/p Robotic assisted thoracic surgery (RATS) with mediastinal mass resection, left sided POD#1
-h/o tobacco abuse
-myasthenia gravis
-Botox injections
-Breast fibroma removal
Subjective
Procedure
s/p Robotic assisted thoracic surgery (RATS) with mediastinal mass resection, left sided on 01/15/[address] Short
-
Date of Service: January 16, 2024
Objective Data
-
Lab Results
01/16/24 04:05
01/16/24 04:05
PT 13.8 Sec (11.4-14.6) 01/09/24 03:56
INR 1.06 01/09/24 03:56
APTT 24.7 Sec (23.4-35.0) 01/09/24 03:56
Vital Signs
Vital Signs
Temp Pulse Resp BP Pulse Ox
97.9 F 66 20 112/79 97
01/16/24 04:00 01/16/24 05:00 01/15/24 23:30 01/16/24 04:07 01/16/24 04:07
CT Intake/Output/Weight
01/15/24 01/15/24 01/16/24
06:59 18:59 06:59
Intake Total 525 / 810 285 / 810
Output Total 20 / 410 390 / 410
Balance 505 / 400 -105 / 400
SaO2: 97
Physical Exam
-
General: AOx3
Cardiovascular: Regular rate & rhythm
Respiratory: Decreased Breath Sounds (poor effort)
Incision: Clean, Dry and Intact
Extremities: No Edema
[2024-01-16 06:00] VITALS: BMI 18.9
[2024-01-16] MEDS: TYLENOL 1000 MG PO ×2 (06:18→13:22)
[2024-01-16] MEDS: ROXICODONE 2.5 MG PO ×2 (06:19→12:09)
--- NOTE | 2024-01-16 06:49 | W.PN.ANS.POP ---
Anesthesia Post Operative
- Anesthesia Post Op Note
Vital Signs Stable-See Nursing Note: Yes
Airway Patent: Yes
Adequate Pain Control: Yes
Change in Mental Status: No
Current Postoperative Nausea & Vomiting: No
Anesthesia Complications: No
General Anesthetic Recall: No
Unplanned Admission: No
Post Op Hydration Adequate: Yes
--- NOTE | 2024-01-16 07:21 | PTCARENOTE ---
Received pt from shift mechanic RN; pt AAOx3 and resting comfortably in bed; Sinus Albin on monitor and VSS; Lungs diminished; CTx1 to -20 wall suction no air leak and no crepitus noted; positive bowel sounds; pt voiding clear yellow urine; palpable
pulses throughout; no edema noted; all surgical site C/D/I; see nursing documentation for further details.
--- NOTE | 2024-01-16 07:45 | PTCARENOTE ---
Left Chest tube removed with CV BRIDGE LEVERMAN at bedside.
[2024-01-16 07:47] LABS: MuSK IgG Ab CBA IFA, Serum <1:10 (<1:10)
[2024-01-16 07:48] VITALS: BP 107/69
[2024-01-16] MEDS: LIDOCAINE 4% PATCH 1 PATCH TOPICAL (08:37)
[2024-01-16] MEDS: NICODERM TRANSDERMAL 7 MG TRANSDERM (08:38)
[2024-01-16] MEDS: SENOKOT 8.6 MG PO (08:38)
[2024-01-16] MEDS: LOPRESSOR 12.5 MG PO (08:38)
[2024-01-16] MEDS: NEURONTIN 100 MG PO (08:39)
[2024-01-16] MEDS: MESTINON 30 MG PO (08:39)
--- NOTE | 2024-01-16 09:24 | PTOTSP ---
ECONOMIST RESEARCH ASSISTANT Note
New orders required after OR to continue ECONOMIST RESEARCH ASSISTANT services. Please place orders as able/appropriate.
--- NOTE | 2024-01-16 09:30 | W.PN.INTV ---
Today's Communication / Plan
Recommendations
Up OOB as tolerated
Pain control
Post-operative monitoring as per CT surgery
Left-sided chest tube removed today
Maintain SpO2 >90-94%
Follow-up pathology from OR yesterday
Continue with Mestinon and monitor for diarrhea
Nicotine patch; tobacco cessation reinforced
Patient is stable and is being prepared for discharge home today. [employer] Control Systems Integrator/Pulmonary service will now sign off. Please reconsult if there are any additional questions/concerns.
Assessment
-
Assessment: 43-year-old female with a past medical history of tobacco use disorder who presents with neck pain, generalized weakness, shortness of breath and cough. She says she has been fatigued for several weeks, denying any preceding illness.
Her neck pain with hand numbness began about 1-2 weeks ago. She saw an orthopedic doctor few days ago after she was treated with a steroid taper from an urgent care about 1 week prior, and apparently orthopedic recommended splinting with an
outpatient MRI. MRI was done on 12/29/2023. Patient says she has been having trouble swallowing food/water and medications. She believes she may have choked on a muscle relaxer yesterday. In the ER she was afebrile to 97.6 �F, pulse rate 98,
respiratory rate 18, BP 155/106 and saturating 90% on room air. Labs showed leukocytosis to 12.4, platelets 441, ABG showed pH 7.3, pCO2 50. COVID antigen negative. CXR showed a rounded masslike opacity of the left superior margin of the heart.
Chest CT with IV contrast was obtained showing a 4.5 x 2.5 x 4.6 cm lesion along the anterior pericardium with posterior peripheral calcification. There is also bibasilar atelectasis (L >R) with possible mucous plugging in the right lower lobe.
Also right middle lobe atelectasis. CT head showed no acute intracranial abnormality. Patient given albuterol in the ER +1 L NS 0.9%. After patient returned to the ER from CT scan, she was more hypoxic. She was placed onto nonrebreather mask and
ABG obtained showing hypercapnia. BiPAP started onto the patient and she was transferred to the ICU for further care. She was briefly given antibiotics, downgraded out of ICU and is now awaiting mediastinal mass resection. [employer] Integrator services
asked to see patient again postoperatively in CVICU.
Chronic conditions CASE WORK AIDE: Tobacco use disorder, mild cervical degenerative disc disease, BoTox use (for cosmetic use)
Impression:
#Left upper lobe/mediastinal mass along the pericardium (4.5 x 2.5 x 4.6 cm with posterior peripheral calcification, suspicious for thymoma vs lymphoma vs primary bronchogenic carcinoma vs germ cell tumor; less likely cyst) s/p robotic assisted
thoracic surgery with mediastinal mass resection (POD#1)
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
#Acute respiratory failure with hypoxia + hypercapnia - resolved
#Acute cough with bibasilar mucoid/secretion impaction with bibasilar + RML atelectasis, due to aspiration pneumonia/pneumonitis
#Generalized weakness with bilateral hand numbness (symptoms began about 1 week ago) - unclear cause, possibly due to mass effect from TONE mass vs worsening cervical radiculopathy
#Tobacco use disorder (smokes 5-7 cigarettes per day for 'few years')
#Reported history of cervical radiculopathy
#Subclinical hyperthyroidism (TSH: 0.12, free T4: 1.64)
Plan:
- Continue supplemental O2 and maintain SpO2 >90-94%
- Postoperative monitoring as per CVICU
- Pain control
- Encourage incentive spirometer use 10x per hr for at least 4 hrs a day
- Up OOB as tolerated
- prn nebulized bronchodilators
- Transfuse if needed to maintain Hb>7, plt>50k (given her post-operative status)
- CT surgery removed her left-sided chest tube today
- Daily CXR
- Continue with pyridostigmine as per neurology
- Outpatient follow-up with neurology
- Patient recommended to avoid cosmetic Botox in the future
- Monitor for diarrhea
- She received 2-3 days of Unasyn (given 01/08 evening - 01/11 morning) for aspiration pneumonia/pneumonitis Dx earlier this admission
- Legionella + strep pneumonia urine antigens were both negative
- Pt unable to produce sputum for culture
- Continue aspiration precautions
- Nicotine patch - tobacco cessation reinforced
- Oncology consulted - recs appreciated
- Tumor studies negative (AFP, hCG, and LDH)
- Follow-up surgical specimen from OR yesterday
- Maintain MAP>65
- Replete electrolytes with K>4, Mg>2
- Maintain euglycemia with goal BG 140-180
- PT/OT
- Patient had a video fluoroscopic swallow examination today and was cleared for regular solids with thin liquids
- DVT ppx: start LMWH, although patient being prepared for discharge home today. If patient ends up not going home, start Lovenox tonight
Patient is stable and is being prepared for discharge home today. [employer] Control Systems Integrator/Pulmonary service will now sign off. Thank you for allowing us to be involved in the care of this patient. Please reconsult if there are any additional
questions/concerns.
Total time spent today was 35 minutes for this encounter. Time includes reviewing laboratory test/imaging results, reviewing pertinent medical records, obtaining and reviewing medical history, performing an appropriate exam, ordering medications,
tests and procedures. Time also includes documentation of this encounter, coordinating patient care and communicating with other healthcare professionals. Total time does not include separately billed tests performed on this date of service.
Data:
CT chest with IV contrast 01/09/2024: Mildly motion degraded examination
1. There is a 4.5 x 2.5 x 4.6 cm lesion along the anterior pericardium which demonstrates posterior peripheral calcification. This demonstrates Hounsfield units more consistent with a soft tissue lesion rather than cyst. Differential includes a
pleural-based lesion, colonic lesion, lymphoma or germ cell tumor. Findings are less likely atypical pericardial cyst. There is no mediastinal, hilar or axillary lymphadenopathy.
2. Left greater than right bibasilar atelectasis with questionable mucous plugging in the right lower lobe. Right middle lobe atelectasis.
CT head 01/09/2024:
No acute intracranial abnormality noted.
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
CXR 01/15/2024:
Left-sided chest tube as described above. No pneumothorax.
Moderate right lower lobe atelectasis. Stable.
CXR 01/16/2024: Stable left apical chest tube. No active pulmonary process.
Subjective Dataa
Subjective Data
Date of Service:
Date of Service: January 16, 2024
Chief Complaint: Command [employer] Control Systems Integrator Follow Up and Other (Post-operative inventory checker/pulmonary management)
Subjective:
Patient seen and evaluated today at bedside. She feels well, is up out of bed breathing comfortably with left-sided postoperative chest pain. She is on room air, saturating 97-98%. Heart rate 90. She is being prepared for discharge home today.
Review of Systems
General: Other (Negative unless mentioned above)
Objective Data
Data Reviewed
Vital Signs / I&O / Oxygen:
Vital Signs
Temp Pulse Resp BP Pulse Ox
98.4 F 71 16 107/69 96
01/16/24 08:00 01/16/24 08:38 01/16/24 08:00 01/16/24 08:38 01/16/24 08:00
Intake and Output
01/15/24 01/16/24 01/17/24
06:59 06:59 06:59
Intake Total 370 / 370 810 / 810 480 / 480
Output Total 300 / 300 1110 / 1110
Balance 70 / 70 -300 / -300 480 / 480
SaO2 96
Nasal Cannula flow liters per 6
minute
Physical Exam
General: Respiratory Distress (Negative), Comfortable, Chills (Negative) and Sweats (Negative)
HEENT: Normocephalic and Anicteric
Cardiovascular: S1-S2 and Peripheral Edema (Negative)
Respiratory: Clear, Wheeze (Negative), Crackles (Negative), Rhonchi (Negative) and Non-Labored Respirations
GI: Soft, Non Distended, Non Tender and Normal Bowel Sounds
Neurology: AO x 3 and Tremors (Negative)
Skin: Warm, Dry and Jaundice (Negative)
Labs/Micro/Reports
Lab Data
01/16/24 04:05
01/16/24 04:05
--- NOTE | 2024-01-16 10:42 | W.PN.NEURO.1 ---
Documented by User: Rhonda Flowers NP 01/16/24 12:34
Today's Communication / Plan
-
.
Neuro Assessment/Plan
Assessment
This is a 43-year-old RH female who presented to on 01/09/24 with report of cough, shortness of breath, difficulty swallowing, and weakness. CT chest demonstrates a lesion along the anterior pericardium and myasthenia gravis antibody testing is
positive. Patient also noted receiving Botox injections throughout her face.
-MRI brain 01/14/24: No acute intracranial abnormality noted. No evidence for intracranial metastasis. Probable benign calvarial lesions such as atypical arachnoid granulations or venous lakes, dermoid cyst or fibrous dysplasia, less likely
metastases/myeloma.
-MRI Cervical Spine 01/14/24: No suspicious lesions or enhancement.
I. Myasthenia gravis, positive acetylcholine receptor antibody panel.
II. Mediastinal mass s/p resection.
III. Cosmetic Botox likely exacerbating symptoms.
Plan
-Continue Mestinon 30mg QID as she is responding well at this dosing, can titrate up to 60mg QID as an outpatient if needed. Monitor for diarrhea.
-PT/OT/ST evaluations.
-Would avoid cosmetic Botox in the future as this may exacerbate myasthenia symptoms.
-DVT prophylaxis.
-Follow-up with Neurology as an outpatient, may see the WATERSHED MANAGER or one of the physicians.
Subjective/Objective
Subjective Data
Date of Service: January 16, 2024
No acute events overnight. Patient reports some postoperative discomfort but otherwise she is feeling well. She reports that her strength and swallowing are at baseline and she is not having any diarrhea.
Objective Data
Vital Signs
Temp Pulse Resp BP Pulse Ox
98.4 F 71 16 107/69 96
01/16/24 08:00 01/16/24 08:38 01/16/24 08:00 01/16/24 08:38 01/16/24 09:38
Lab Results
01/16/24 04:05
01/16/24 04:05
PT 13.8 Sec (11.4-14.6) 01/09/24 03:56
INR 1.06 01/09/24 03:56
APTT 24.7 Sec (23.4-35.0) 01/09/24 03:56
Sodium 134 mmol/L (135-145) L 01/16/24 04:05
Potassium 5.0 mmol/L (3.5-5.1) 01/16/24 04:05
BUN 12 mg/dl (7-17) 01/16/24 04:05
Glucose 100 mg/dl (70-99) H 01/16/24 04:05
Calcium 9.8 mg/dl (8.4-10.2) 01/16/24 04:05
Phosphorus 4.5 mg/dl (2.5-4.5) 01/12/24 08:16
Asc-P-Ibjtsfzfgyq Pept 36.6 pg/ml 01/09/24 02:34
Patient Allergies
Botulinum Toxin Adverse Reaction (Severe, Verified 01/13/24 20:51)
weakness
Review of Systems
-
History Source: Patient
EENT: Negative Blurry Vision, Decreased Vision or Swallowing Difficulty
Respiratory: Negative Cough or Trouble Breathing
Cardiac: Negative Palpitations
Abdomen/GI: Negative Diarrhea
Neuro: Negative Dizzy, Headache, Weakness, Numbness, Ataxia, Tremors or Speech Problem
Physical Exam
-
General: No Apparent Distress
Eyes: No Ptosis and PERRLA
HEENT: Normocephalic and Atraumatic
Neck: Full Range of Motion
Respiratory: No Dyspnea
GI: Non-distended
Extremities: No Clubbing, No Cyanosis and No Edema
Extended Neurological Exam
Mood & Affect: Mood Unremarkable and Affect Unremarkable
Attention Span & Concentration: Awake, Alert and Interactive
Memory: Unremarkable (AAOx3) and Able to Recall
Tremor: Hand Tremor Absent and Head Tremor Absent
Involuntary Movement: None
Speech: Quality Unremarkable, Quantity Unremarkable and Rate of Production Unremarkable
Cranial Nerve II: Left Eye: Pupillary Reactivity Unremarkable, Pupillary Size Unremarkable and Visual Rocha Intact
Cranial Nerve II: Right Eye: Pupillary Reactivity Unremarkable, Pupillary Size Unremarkable and Visual Rocha Intact
Cranial Nerves III, IV, : Extraocular Movement: Extraocular Movement Full in all Directions
Cranial Nerve V: Facial Sensation: Intact to Light Touch
Cranial Nerve VII: Facial Symmetry: Normal Facial Symmetry
Cranial Nerve VIII: Hearing: Unremarkable Hearing to Normal Conversational Volume
Cranial Nerves IX, X: Palate Movement: Palate Elevation Symmetric
Cranial Nerve XI: Shoulder Shrug: Unremarkable
Cranial Nerve XII: Tongue Protusion: Midline
Muscle Strength, Overall: Full Throughout
Muscle Bulk & Tone: Bulk Unremarkable and Tone Unremarkable
Pronator Drift: No Drift in Upper Extremities and No Drift in Lower Extremities
Coordination: Llkjvx-pjei-plnrdh Testing Unremarkable
Gait & Station: Up from Seated Without Problem
Data Reviewed
-
MRI Head: Report Reviewed and Image Reviewed
MRI Cervical Spine: Report Reviewed and Image Reviewed
Medical Test Reports: Report Reviewed (myasthenia panel)
Labs: Report Reviewed
Reviewed with: Physician and Patient
Medications
-
Active Medications
Generic Name Dose Route Start Last Admin
Trade Name Freq PRN Reason Stop Dose Admin
Acetaminophen 1,000 mg 01/15/24 14:00 01/16/24 06:18
Acetaminophen 500 Mg Tablet PO 02/12/24 13:59 1,000 mg
TID@0600,1400,2200 TRAMAINE Administration
Acetaminophen 650 mg 01/15/24 14:00
Acetaminophen 325 Mg Tablet PO 02/12/24 13:59
Q4HPRN PRN
mild pain,headache,temp >101F
Albuterol 2 puff 01/15/24 14:00
Albuterol Hfa [90 Mcg/Dose] Inhaler INH
R Q4HPRN PRN
wheezing/shortness of breath
Protocol
Bisacodyl 10 mg 01/15/24 14:00
Bisacodyl 10 Mg Rectal Suppository RECTAL 02/12/24 13:59
DAILYPRN PRN
constipation
Cyclobenzaprine HCl 5 mg 01/15/24 14:00 01/15/24 15:42
Cyclobenzaprine 10 Mg Tablet PO 02/12/24 13:59 5 mg
Q8HPRN PRN Administration
muscle spasm
Gabapentin 100 mg 01/15/24 16:00 01/16/24 08:39
Gabapentin 100 Mg Capsule PO 02/12/24 15:59 100 mg
TID TRAMAINE Administration
Hydromorphone HCl 2 mg 01/15/24 18:05 01/15/24 21:27
Hydromorphone 2 Mg Tablet PO 01/29/24 18:04 2 mg
Q6HPRN PRN Administration
severe pain
Ketorolac Tromethamine 15 mg 01/15/24 14:00 01/16/24 03:49
Ketorolac 15 Mg/Ml Injection IV 15 mg
Q6HPRN PRN Administration
mild pain
Lidocaine 1 patch 01/16/24 08:00 01/16/24 08:37
Lidocaine 4% Topical Patch TOPICAL 02/13/24 07:59 1 patch
DAILY TRAMAINE Administration
Protocol
Magnesium Hydroxide 30 ml 01/15/24 14:00
Milk Of Magnesia 30 Ml Cup PO 02/12/24 13:59
BIDPRN PRN
if no BM by POD #3
Metoprolol Tartrate 12.5 mg 01/15/24 20:00 01/16/24 08:38
Metoprolol 12.5 Mg Regular Release Dose (1/2 Of 25 Mg Tablet) PO 02/12/24 19:59 12.5 mg
BID TRAMAINE Administration
Nicotine 7 mg 01/09/24 15:00 01/16/24 08:38
Nicotine 7 Mg Patch TRANSDERM 02/06/24 14:59 7 mg
DAILY TRAMAINE Administration
Ondansetron HCl 4 mg 01/15/24 14:00
Ondansetron 4 Mg/2 Ml Vial IV 02/12/24 13:59
Q8HPRN PRN
nausea/vomiting
Oxycodone HCl 2.5 mg 01/15/24 14:00 01/16/24 06:19
Oxycodone 5 Mg Regular Release Tablet PO 01/29/24 13:59 2.5 mg
Q4HPRN PRN Administration
mild pain
Patch Removal 1 patch 01/16/24 20:00
Remove Lidocaine Patch REMOVE 02/13/24 19:59
DAILY@2000 TRAMAINE
Polyethylene Glycol 17 grams 01/16/24 08:00 01/16/24 08:42
Polyethylene Glycol Powder 17 Grams Packet PO 02/13/24 07:59 Not Given
DAILY TRAMAINE
Pyridostigmine [place] 60 mg 01/16/24 09:30
Pyridostigmine 60 Mg Tablet PO 02/11/24 15:59
TID TRAMAINE
Sennosides 8.6 mg 01/15/24 20:00 01/16/24 08:38
Sennosides (Senokot) 8.6 Mg Tablet PO 02/12/24 19:59 8.6 mg
BID TRAMAINE Administration
Sodium Chloride 0 flush 01/15/24 15:00
Sodium Chloride 0.9% (Flush) Syringe IV 02/12/24 14:59
PER PROTOCOL TRAMAINE
Tramadol HCl 100 mg 01/15/24 18:31
Tramadol Hcl 50 Mg Tablet PO 02/12/24 16:49
Q6HPRN PRN
moderate pain
Home Medications
�Medication �Instructions �Recorded
acetaminophen 325 mg tablet 650 mg (2 x 325 mg) PO Q6HPRN PRN 01/16/24
mild pain,headache,temp >101F #0
tabs
gabapentin 100 mg capsule 100 mg PO TID pain #30 caps 01/16/24
lidocaine 4 % topical patch 1 patch topical DAILY PRN #0 ea 01/16/24
metoprolol tartrate 25 mg tablet 12.5 mg (1/2 x 25 mg) PO BID #30 01/16/24
tabs
nicotine 7 mg/24 hr daily 7 mg transdermal DAILY #0 ea 01/16/24
transdermal patch
oxycodone 5 mg capsule 5 mg PO Q6H PRN Pain #20 caps 01/16/24
oxycodone 5 mg tablet 2.5 - 5 mg (0.5 - 1 x 5 mg) PO 01/16/24
Q6HPRN PRN moderate to severe pain
#20 tabs
pyridostigmine bromide 60 mg tablet 30 mg (1/2 x 60 mg) PO TID #90 tabs 01/16/24
sennosides 8.6 mg tablet (Senna 8.6 mg PO BID PRN Constipation #0 01/16/24
Laxative) tabs

Documented by User: Humberto Mao MD 01/17/24 08:22
Today's Communication / Plan
-
43 yr. old lady with h/o new onset bulbar symptoms and dyspnea secondary to Myasthenia triggered by Botox injection with underlying mediastinal mass(thymoma vs lymphoma vs teratoma) responding well to Mestinon 30mg TID.
PLAN: Pat may be discharged on Mestinon 30 mg TID to be titrated to 30mg QID as tolerated.
Follow up with Neurology OP
Follow up with CT surgery with regards to mediastinal mass pathology
--- NOTE | 2024-01-16 11:22 | CM ---
Chart reviewed. Patient is independent of ADLS, ambulating in the room. Patient lives with her mother, and 2 children. Plan is for the patient to return home. Patient is outside of the driving radius for CT Transitional RN, so she
will return home with a follow up phone call from [facility] Transitional RN. CM to follow
--- NOTE | 2024-01-16 11:55 | W.PN.HOSP.TC ---
Addendum entered and electronically signed by Oseas Lara MD 01/16/24 13:37:
I saw and evaluated the patient. I reviewed the resident�s note and agree with findings and plan as documented in the resident�s note.
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
-CT chest images reviewed. 4.5 x 2.5 x 4.6 cm lesion along the anterior pericardium which demonstrates posterior peripheral calcification.
-elevated Ach ab receptor level of 27.5, in line with likely MG diagnosis
-Patient underwent surgical removal of thoracic mass on 01/14. Postop course uncomplicated chest tube has been removed.
-Patient has been cleared by cardiothoracic surgery to be discharged today.
2. Acute dysphagia -improved
Myasthenia gravis
-Patient will VSE and recommended to be n.p.o. with trial of liquid diet with understanding of aspiration risk
-MRI C-spine done last week outpatient basis was normal according to patient, patient brought in images/CD and provided to RN although unable to be located at this point.
-MRI c spine/brain normal
-Started on trial of Mestinon for MG and symptoms of dysphagia/weakness is improved.
-Patient had repeat VSE today and some minimal risk of aspiration although overall cleared for regular diet and thin liquids.
-Dose of Mestinon has been increased to 30 mg 3 times daily as well
3. Upper extremity weakness
-Patient having both upper extremity weakness and change in sensation.
-Neurology evaluation reviewed, ab test ordered as recommended
-CPK level WNL
4. Acute hypoxic respiratory failure -resolved
-Was on BiPAP now currently on room air
-CT chest did not show any acute findings.
5. Cervical Radiculopathy with peripheral neuropathy
- cont new lyrica
6. Tobacco Abuse-
- counselled re quitting
- cont nicotine patch
7. Hyperthyroidism
- possibly autoimmune
- TSH normalizing to 0.6 now. at admit was 0.12
DVT proph - lovenox
Original Note:
Today's Communication/Plan
-
Patient to be discharged today if cleared.
Assessment / Plan
Assessment / Plan
43 year old female presented with neck pain, generalized weakness, and difficulty breathing. Patient is suspected to have myasthenia gravis and was started on Mestinon 30g, now increasing dose to 60g. Patient underwent cardiothoracic surgery
yesterday for her mediastinal mass that is suspected to be a thymoma. Patient is recovering well from her surgery.
Mediastinal Mass adjacent to the pericardium
-4.5 x 2.5 x 4.6 cm lesion along the anterior pericardium which demonstrates posterior peripheral calcification.
-thymoma?
-for robotic assisted mass resection/LN biopsy- 01/14 Dr. Short
- echo 01/08- LV ejection fraction is 65-70%. Normal regional wall motion.
Normal right ventricular size and function.
No significant valvular disease.
- MG- acetylcholine rec ab positive and MUSK ab- <1:10
- Neuro input appreciated-
- Mestinon 30mg started titrate to QID to 60mg QID as tolerated
- MRI brain- No acute intracranial abnormality noted. No evidence for intracranial metastasis. Probable benign calvarial lesions such as atypical arachnoid granulations or venous lakes, dermoid cyst or fibrous dysplasia, less likely
metastases/myeloma.
- Possible differentials:
1. Botox induced Myasthenia
2. E[place] Lambert Syndrome secondary to mediastinal mass
3. 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
-Patient underwent successful cardiothoracic surgery
-mass was adherent to the left phrenic nerve. However, there was no evidence of invasion to either the pericardium or the phrenic itself.
- Awaiting Biopsy Result
-Follow up in outpatient setting
Myasthenia Gravis due to possible reaction to Botox-
- Neuro input appreciated-
- Mestinon 30mg QID increased to 60mg QID as tolerated
- MG- acetylcholine rec ab positive and MUSK ab- <1:10
Acute Dysphagia
- resolved leukocytosis
- check lateral neck/soft tissue x ray- reviewed WNL
- procal neg
- patient able to tolerate diet
Upper Extremity Weakness
-Numbness and weakness in bilateral upper extremities
-Neuro consulted, input appreciated
-Myasthenia gravis due to botox suspected
-market improvement in muscle strength upon treatment with Mestinon
-Continue 60g Mestinon QID
Acute Hypoxemic Respiratory Failure
- was on bipap now weaned to RA
Cervical Radiculopathy with peripheral neuropathy
- improving
- cont on lyrica
Tobacco Abuse-
- counselled re quitting
- cont nicotine patch
Hyperthyroidism
- possibly autoimmune
- TSH-0.6
Anticipated Discharge: today
Anticipated Discharge: Today
Subjective/Interval History
-
Date of Service: January 16, 2024
Patient has been feeling better according to nurse, recovering her energy after her surgery yesterday.
Objective Data
-
Labs:
Laboratory Results
01/16/24
04:05
WBC 15.6 H
Hgb 12.5
Hct 36.2 L
Plt Count 386
Sodium 134 L
Potassium 5.0
Chloride 100
Carbon Dioxide 26
BUN 12
Creatinine 0.6
Glucose 100 H
Calcium 9.8
Vital Signs:
Vital Signs
Temp Pulse Resp BP Pulse Ox
98.4 F 71 16 107/69 96
01/16/24 08:00 01/16/24 08:38 01/16/24 08:00 01/16/24 08:38 01/16/24 09:38
I&O
01/15/24 01/16/24 01/17/24
06:59 06:59 06:59
Intake Total 370 / 370 810 / 810 480 / 480
Output Total 300 / 300 1110 / 1110
Balance 70 / 70 -300 / -300 480 / 480
Review of Systems
-
History Source: Patient
Constitutional: Reports No Symptoms
EENT: Reports No Symptoms Reported
Respiratory: Reports No Symptoms
Cardiac: Reports No Symptoms
Abdomen/GI: Reports No Symptoms
Breast: Reports No Symptoms
Musculoskeletal: Reports No Symptoms
Neuro: Denies Weakness
Physical Exam
-
General: Well Developed, Well Nourished and No Apparent Distress
Respiratory: Clear to Auscultation and Non Labored Respirations
Cardiac: Regular Rhythm and S1/S2
Neuro: Awake, Alert, Oriented and AO x 3
Data Reviewed
-
Medical Tests (Nuc Med, Echo etc): Report Reviewed by me, Discussed with Physician and Discussed with Patient
Labs: Labs Reviewed by me, Discussed with Physician and Discussed with Patient
--- NOTE | 2024-01-16 11:55 | W.DCSUMMARY ---
Discharge Summary
Discharge Data
Date of Admission: 01/09/24
Date of Discharge: 01/16/24
-
Pending Results: Yes
Additional Pending Results:
Intraoperative pathology is pending (01/14)
Repeat Ach receptor binding Ab pending 01/15 (sendout)
Hospital Course
Primary care physician: Hui Kay
Inpatient consultants: Neurology- Dr. Humberto Mao, Pulmonology- Dr. Wally Reich, Hem/onc- Dr. Britney Hawkins, Gastroenterology- Dr. Gopi Woods
Procedures:
1. 01/15/24 Robotic assisted mediastinal mass resection, frozen section for thymoma vs lymphoma; final pathology is pending at this time
Primary Diagnosis:
1. mediastinal mass
2. myasthenia gravis
Secondary Diagnoses:
1. acute dysphagia, improved with mestinon
2. upper extremity weakness, improved with mestinon
3. acute hypoxic respiratory failure- requiring bipap, resolved
4. cervical radiculopathy with peripheral neuropathy
5. tobacco abuse
6. hyperthyroidism
Hospital course: Patient is a 43-year-old otherwise healthy female who presented to [facility] on 01/08/24 with complaints of cough, shortness of breath and dysphagia. Imaging in the ED demonstrated a mediastinal mass, and patient was
admitted for further workup for her mass and chief complaints. Thorough medical workup revealed suspected myasthenia gravis with positive acetylcholine receptor antibody. Patient was started on Mestinon with clinical improvement in her upper
extremity weakness as well as her difficulty swallowing. CT surgery was consulted for resection of the mediastinal mass. She was taken to the operating room on 01/15/2024 where she underwent a robotic assisted mediastinal mass resection by
Zenon Short without any preoperative complications. She was extubated in the operating room and transferred to CVICU for recovery. On postop day 1 chest tube was discontinued without incident, she was ambulatory and pain was controlled on oral
medications. She was discharged to home in the care of her family. She will follow-up with Dr. Short in 3 weeks as well as recommended to follow-up with neurology and pulmonary. Repeat acetylcholine receptor antibody was sent on day of discharge
which is currently pending. She will have another Ach antibody drawn on 01/27/2024. Final surgical pathology is also pending at this time.
Home medication changes: New scripts have been provided for surgical pain including gabapentin and oxycodone. New prescription for Mestinon for myasthenia gravis 30 mg p.o. 4 times daily. New prescription provided for metoprolol tartrate 12.5mg x
30 days for A-fib prophylaxis.
Discharge Plan
-
Patient Disposition: Home (Routine Discharge)
Discharge Diagnosis/Procedures: thymoma/mediastinal mass resection
Condition: Good
Diet: No restrictions
Additional Diets: continue with regular solids and thin liquids. choose softer foods.
Activity: No strenuous activity
Driving Restrictions: No driving for 2 weeks
Bathing Restrictions: OK to Shower
Blood Work: please obtain Acetylecholine receptor bind Ab 1 week prior to appointment with Dr. Short--OK to have drawn 01/26 while at in outpatient lab, Rx provided.
Wound Care: keep chest tube dressing intact x24hrs, then OK to shower normally. Chest tube suture will be removed at wound check appt.
Referrals:
Hui Kay MD [Family Provider] -
Wally Reich MD [Active] - in four to six weeks (full PFts on day of office visit; repeat CT Chest in mid-February 2024)
Humberto Mao MD [Active] - in two to four weeks (call neurology to follow up in 2-4 weeks)
Zenon Short MD [Active] - 02/05/24 2:30 pm
Aurelia Foreman CRNP [Specified Professional Personl] - 01/27/24 10:30 am (wound check & chest tube stitch removal)
Prescriptions:
New
nicotine 7 mg/24 hr Patch 24 Hour
7 mg transdermal DAILY Qty: 0 0RF
metoprolol tartrate 25 mg Tablet
12.5 mg PO BID Qty: 30 0RF
Rx Instructions:
take for 30 days then stop; for afib prophylaxis
acetaminophen 325 mg Tablet
650 mg PO Q6HPRN PRN (Reason: mild pain,headache,temp >101F ) Qty: 0 0RF
gabapentin 100 mg Capsule
100 mg PO TID Qty: 30 0RF
sennosides [Senna Laxative] 8.6 mg Tablet
8.6 mg PO BID PRN (Reason: Constipation) Qty: 0 0RF
lidocaine 4 % Adhesive Patch,Medicated
1 patch topical DAILY PRNQty: 0 0RF
oxycodone 5 mg capsule
5 mg PO Q6H PRN (Reason: Pain) Qty: 20 0RF
Rx Instructions:
Please take 2.5mg for pain 4-6/10 pain
Please take 5mg for >6/10 pain
pyridostigmine bromide 30 mg tablet
30 mg PO QID Qty: 120 1RF
Discharge Orders:
Discharge Patient (As Directed); Ordered 01/16/24
Ordered By: Kellie Okeefe
Care Plan Goals
Care Plan Goals:
Problem: Readiness for enhanced knowledge related to diagnosis and treatment plan
Goal: Understand your diagnosis and treatment plan needs, including medications if applicable.
Instructions: Know your diagnosis, underlying causes and treatment plan options, including medications if applicable. Consult with your health care team to learn about your diagnosis and treatment plan, including medications if applicable.
Discharge Date and Time
Discharge Date/Time: 01/16/24 14:45
Print Language: SENEGALESE
[2024-01-16 12:04] VITALS: BP 104/73
--- NOTE | 2024-01-16 12:14 | PTCARENOTE ---
Assessment unchanged; NSR on monitor and VSS; pt resting comfortably in chair.
--- NOTE | 2024-01-16 12:49 | PTOTSP ---
Video Swallow Examination
Overall, the patient presents with an improved pharyngeal swallow without laryngeal penetration or aspiration. Pharyngeal stasis remains with denser material with improved clearance following liquid wash.
Recommend
1. Continue with regular solids and thin liquids, choosing soft solids
2. Dry swallow, liquid wash
3. Aspiration precautions.
4. Meds as best tolerated.
5. Rest breaks as needed. May do best with smaller meals.
No further skilled ST indicated.
--- NOTE | 2024-01-16 14:50 | W.[place]-PDMP ---
[place]-PD[place]
-
Checked the [place]- Prescription Drug Monitoring Program website, no red flags identified; safe to proceed with prescription.
--- NOTE | 2024-01-16 19:05 | W.DCSUMMARY ---
Discharge Summary
Discharge Data
Date of Admission: 01/09/24
Date of Discharge: 01/16/24
-
Pending Results: Yes (Pathology Results from Biopsy)
Hospital Course
Admission Diagnosis: Acute Hypoxemic and Hypercapnic Respiratory Failure secondary to Mediastinal Mass
Conditions Prior to Admission: None
Hospital Course: 43 year old female presented to the ED with a neck pain, generalized weakness, and difficulty breathing on 01/08. Patient had been fatigued for several weeks and had no other past medical history of illness. Patient has had neck pain
with hand numbness for 1-2 weeks earlier for which she had been seeing an orthopedic doctor. She was treated with a steroid taper from urgent care as well about 1 week ago and was recommended to get an MRI done. MRI was done on 12/28. Patient states
that she has been having difficulty swallowing food, water and her medications and also has been having difficulty breathing. Chest x-ray was ordered due to her cough which showed a mediastinal mass. CT chest with IV contrast was also ordered
because of this left chest mass alongside CT head without IV contrast. hCG serum qualitative screen was also added alongside troponins. Patient has slight leukocytosis at this point as well. Patient's breathing was improved on BiPAP and she was
admitted to the ICU for further evaluation and treatment. Pulmonary and IR were consulted alongside cardiothoracic for best approach for tissue biopsy of the mediastinal lesion. Oncology was also contacted for evaluation for further treatment
plan. At this point differentials were between lymphoma thymoma and pericardial mass. Acetylcholine receptor binding antibodies were ordered at this time. Patient she did not show much improvement and she was still very weak in her upper
extremities. Patient also had trouble eating a breathing at this time. Patient was scheduled for cardiothoracic surgery for 01/13. Patient felt much improved the next day as her shortness of breath and cough were resolving. She continued to have
weakness in her upper extremities however and her cervical radiculopathy was improving with Lyrica. The patient's BiPAP was now weaned to NC 2L. That night patient had a minor incident she ate a kind bar with nuts that her had brought in
and had a choking incident where she felt that it was stuck in her throat. The symptoms were similar to what the patient was admitted with including the shortness of breath. Patient was given DuoNebs and patient felt improvement posttreatment and
was told to stick to softer foods.
Patient continued to have worsening upper extremity weakness including weakness with repetitive motions with next upper extremities. Patient continued to stay in IMU and continue waiting for her cardiothoracic surgery. Patient underwent RF Video
Fluoro Swallow Exam. The patient swallowing function was evaluated fluoroscopically and with videotape during the ingestion of several consistencies of barium, in conjunction with the speech pathologist. Brief imaging of the thoracic esophagus
demonstrates no significant esophageal retention. There was residue in the vallecula and piriformis throughout the entire study. Patient required several swallows to clear each consistency presented. Patient had another incident of choking and
later that night when she was try to eat sushi. Patient was transitioned to softer foods after remaining n.p.o. a Dobbhoff tube was discussed with the patient but she was not agreeable after being uncomfortable from the procedure. At this time
patient's acetylcholine antibody receptor level readings came back as elevated to 27.5. Neurology was consulted at this time and a differential of Botox induced myasthenia gravis was made alongside Eaton-Lambert syndrome secondary to mediastinal
mass. Patient was started on Mestinon 30 mg twice daily which led to marked improvement of the patient's symptoms and she was cleared for liquid diet. Patient's upper extremity weakness was much improved and she was currently on room air. Patient
underwent brain and cervical spine MRI as well before surgery.
Patient underwent cardiothoracic surgery for removal of the mediastinal mass on 01/13 for which was performed by Dr. Short. According to Dr. Short the mass was adherent to the left phrenic nerve however there was no evidence of invasion. The surgery
was successful patient continued to recover in the hospital for another day. Patient is acute dysphagia was improved the next day and also her upper extremity weakness was markedly improved. Patient was discharged today with instructions to
follow-up with her neurologist for results of her biopsy.
Imaging Done:
CT Chest:
1. There is a 4.5 x 2.5 x 4.6 cm lesion along the anterior pericardium which demonstrates posterior peripheral calcification. This demonstrates Hounsfield units more consistent with a soft tissue lesion rather than cyst. Differential includes a
pleural-based lesion, colonic lesion, lymphoma or germ cell tumor. Findings are less likely atypical pericardial cyst. There is no mediastinal, hilar or axillary lymphadenopathy.
2. Left greater than right bibasilar atelectasis with questionable mucous plugging in the right lower lobe. Right middle lobe atelectasis.
CT Head:
There is no acute intracranial hemorrhage, large vessel territory infarction or mass. The ventricles are normal in size, configuration, and position. . No areas of abnormal mass effect or attenuation are noted. Visualized paranasal sinuses are
free of mucosal disease.. Unremarkable appearance of the calvarium. 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
Brain MRI:
No acute intracranial abnormality noted. No evidence for intracranial metastasis.
Probable benign calvarial lesions such as atypical arachnoid granulations or venous lakes, dermoid cyst or fibrous dysplasia, less likely metastases/myeloma.
Cervical Spine MRI:
No suspicious lesions or enhancement
Discharge Plan
-
Patient Disposition: Home (Routine Discharge)
Discharge Diagnosis/Procedures: thymoma/mediastinal mass resection
Condition: Good
Diet: No restrictions
Additional Diets: continue with regular solids and thin liquids. choose softer foods.
Activity: No strenuous activity
Driving Restrictions: No driving for 2 weeks
Bathing Restrictions: OK to Shower
Blood Work: please obtain Acetylecholine receptor bind Ab 1 week prior to appointment with Dr. Short--OK to have drawn 01/26 while at in outpatient lab, Rx provided.
Wound Care: keep chest tube dressing intact x24hrs, then OK to shower normally. Chest tube suture will be removed at wound check appt.
Referrals:
Hui Kay MD [Family Provider] -
Wally Reich MD [Active] - in four to six weeks (full PFts on day of office visit; repeat CT Chest in mid-February 2024)
Humberto Mao MD [Active] - in two to four weeks (call neurology to follow up in 2-4 weeks)
Zenon Short MD [Active] - 02/05/24 2:30 pm
Aurelia Foreman CRNP [Specified Professional Personl] - 01/27/24 10:30 am (wound check & chest tube stitch removal)
Prescriptions:
New
nicotine 7 mg/24 hr Patch 24 Hour
7 mg transdermal DAILY Qty: 0 0RF
metoprolol tartrate 25 mg Tablet
12.5 mg PO BID Qty: 30 0RF
Rx Instructions:
take for 30 days then stop; for afib prophylaxis
acetaminophen 325 mg Tablet
650 mg PO Q6HPRN PRN (Reason: mild pain,headache,temp >101F ) Qty: 0 0RF
gabapentin 100 mg Capsule
100 mg PO TID Qty: 30 0RF
sennosides [Senna Laxative] 8.6 mg Tablet
8.6 mg PO BID PRN (Reason: Constipation) Qty: 0 0RF
lidocaine 4 % Adhesive Patch,Medicated
1 patch topical DAILY PRNQty: 0 0RF
oxycodone 5 mg capsule
5 mg PO Q6H PRN (Reason: Pain) Qty: 20 0RF
Rx Instructions:
Please take 2.5mg for pain 4-6/10 pain
Please take 5mg for >6/10 pain
pyridostigmine bromide 30 mg tablet
30 mg PO QID Qty: 120 1RF
Discharge Orders:
Discharge Patient (As Directed); Ordered 01/16/24
Ordered By: Kellie Okeefe
Care Plan Goals
Care Plan Goals:
Problem: Readiness for enhanced knowledge related to diagnosis and treatment plan
Goal: Understand your diagnosis and treatment plan needs, including medications if applicable.
Instructions: Know your diagnosis, underlying causes and treatment plan options, including medications if applicable. Consult with your health care team to learn about your diagnosis and treatment plan, including medications if applicable.
Discharge Date and Time
Discharge Date/Time: 01/16/24 14:45
Print Language: UGANDAN
[2024-01-20 17:28] LABS: Acetylcholine Receptor Bind Ab 48.2 nmol/L (0.0-0.4)
== END 2024-01-16 14:45 | disposition home or self-care (01) | DRG 826 ==
LOC: CVICU 03:43
PROVIDERS: Clinical Nurse Specialist Acute Care; Clinical Nurse Specialist Family Health; Family Medicine; Hospitalist; Nurse Practitioner; Nurse Practitioner Primary Care; Student in an Organized Health Care Education/Training Program; ADMITTING PHYSICIAN Hospitalist; ATTENDING PHYSICIAN Thoracic Surgery (Cardiothoracic Vascular Surgery); CONSULT PHYSICIAN Internal Medicine Critical Care Medicine; CONSULT PHYSICIAN Internal Medicine Gastroenterology; CONSULT PHYSICIAN Psychiatry & Neurology Neurology; EMERGENCY PHYSICIAN Emergency Medicine; FAMILY PHYSICIAN Internal Medicine; OTHER PHYSICIAN Internal Medicine Hematology & Oncology
PROC: 5A09357 Assistance with Respiratory Ventilation, Less than 24 Consecutive Hours, Continuous Positive Airway Pressure (ICD-10-PCS; 2024-01-09)
PROC: 8E0W4CZ Robotic Assisted Procedure of Trunk Region, Percutaneous Endoscopic Approach (ICD-10-PCS; 2024-01-15)
PROC: 0WBC4ZZ Excision of Mediastinum, Percutaneous Endoscopic Approach (ICD-10-PCS; 2024-01-15)
DX: C37 Malignant neoplasm of thymus (principal); J69.0 Pneumonitis due to inhalation of food and vomit; J96.01 Acute respiratory failure with hypoxia; J96.02 Acute respiratory failure with hypercapnia; J98.11 Atelectasis; T17.590A Other foreign object in bronchus causing asphyxiation, initial encounter; F17.210 Nicotine dependence, cigarettes, uncomplicated; M50.122 Cervical disc disorder at C5-C6 level with radiculopathy; E05.90 Thyrotoxicosis, unspecified without thyrotoxic crisis or storm; R13.10 Dysphagia, unspecified; G62.9 Polyneuropathy, unspecified; G70.00 Myasthenia gravis without (acute) exacerbation; W44.F9XA Other object of natural or organic material, entering into or through a natural orifice, initial encounter; Z11.52 Encounter for screening for COVID-19
CPT/HCPCS: 88307; 88332; 32505; 36600; 70360; 70450; 70553; 71045; 71046; 71260; 72156; 74230; 80048; 80053; 81025; 82105; 82550; 82805; 83615; 83735; 83880; 84100; 84145; 84439; 84443; 84484; 84702; 84703; 85025; 85027; 85610; 85730; 86041; 86366; 86850; 86900; 86901; 86920; 87449; 87811; 87899; 88331; 88341; 88342; 92526; 92610; 92611; 93005; 93306; 94640; 94660; 96360; 99285; 99406; A9575; Q9967

== ENCOUNTER 2024-01-28 15:20 | Inpatient (IN) | payer OTHER, SELFPAY ==
[2024-01-28] VITALS (10 sets, daily range): BP systolic 100–144; BP diastolic 62–105; BMI 34.5
[2024-01-28 12:38] LABS: % Basophils 0.4 % (0-2); % Immature Granulocytes 0.2 % (0-0.5); % Lymphocytes 25.7 % (20.5-51.1); % Monocytes 6.2 % (1.7-9.3); % Neutrophils 66.5 % (42.2-75.2); Absolute Eosinophils 0.1 10^3/uL (0-0.7); Absolute Lymphocytes 2.9 10^3/uL (1.2-3.4); Absolute Monocytes 0.7 10^3/uL (0.1-0.6); Absolute Neutrophils 7.6 10^3/uL (1.4-6.5); Hematocrit 37.7 % (37.0-47.0); Hemoglobin 12.8 g/dL (12.0-16.0); Mean Corpuscular Volume 91.3 fL (81.0-99.0); Mean Platelet Volume 8.9 fL (7.4-10.4); Nucleated Red Blood Cells % 0 %; Platelet Count 463 10^3/uL (130-400); Red Blood Cell Count 4.13 10^6/uL (4.20-5.40); Red Cell Dist. Width 12.6 % (11.5-14.5); White Blood Cell Count 11.4 10^3/uL (4.8-10.8)
[2024-01-28 12:57] LABS: ALT (SGPT) 13 U/L (0-35); AST (SGOT) 18 U/L (14-36); Albumin 4.4 g/dl (3.5-5.0); Alkaline Phosphatase 48 U/L (38-126); Blood Urea Nitrogen 7 mg/dl (7-17); Calcium 9.8 mg/dl (8.4-10.2); Carbon Dioxide 27 mmol/L (22-30); Chloride 104 mmol/L (98-107); Glucose 95 mg/dl (70-99); Sodium 137 mmol/L (135-145); Total Bilirubin 0.5 mg/dl (0.2-1.3); Total Protein 6.7 g/dl (6.3-8.2); eGFR > 60.00
--- NOTE | 2024-01-28 14:27 | PHANOTE ---
med rec terri(01/28/24)-despite leaving the hospital last time with Lopressor 12.5 BID, when asked patient stated she does not know that medication, and takes no medication for heart/blood pressure that she is currently taking.
[2024-01-28] MEDS: SOLU-MEDROL 258 MG IV ×2 (14:29→21:55)
--- NOTE | 2024-01-28 14:31 | ED.GENMED ---
History of Present Illness
<Ken Slacedo, DO - Last Filed: 01/28/24 18:10>
General
Chief Complaint: Weakness
Time Seen by Provider: 01/28/24 12:56
<Magnolia Stoddard MD, Resident - Last Filed: 01/28/24 15:53>
General
Source: patient and spouse
History of Present Illness
History of Present Illness:
43 yo, F, Ms. Una Vargas presented to the ER as advised by the neurology office. She was diagnosed with myasthenia gravis, was admitted (01/06/2024 to 01/16/2024) and underwent resection of the mediastinal mass ( thymoma). She was started on
Mestinon, patient reports that it has helped with her dysphagia but not the proximal limb weakness. Patient has trouble brushing her hair, and swallowing solid food and her symptoms worsen by the end of the day. So the neurologist plan to start
her on IVIG and Solu-Medrol 1000 mg. Patient denies headaches, chest pain, blurry vision, abdominal pain, bladder/bowel disturbances.
Past History
<Magnolia Stoddard MD, Resident - Last Filed: 01/28/24 15:53>
Past History
ED Past Medical History: Other (Neck pain)
ED Past Surgical History: None
Social History
Tobacco: Smoker
Alcohol: Occasional
Personal:
Living: with family
Review of Systems
<Magnolia Stoddard MD, Resident - Last Filed: 01/28/24 15:53>
Review of Systems
All Other Systems: ROS reviewed and negative except as documented in HPI and ROS
Phy Exam
<Magnolia Stoddard MD, Resident - Last Filed: 01/28/24 15:53>
Physical Exam
Physical Exam:
GEN: No acute distress
Eyes: PERRLA, EOMs intact, no scleral icterus
HENT: NCAT, oral mucosa moist, no JVD, no cervical adenopathy.
Lungs: CTAB, no wheezes, rales, rhonchi, normal chest wall excursion
Cardiac: RRR, S1-S2+, no peripheral edema. Radial pulses 2+ bilat
Chest exam: 4, 1 cm incisional wounds from surgery healing well.
Abdomen: S, NT, ND, NABS, no masses or hepatosplenomegaly
Neuro: AO x 3, cranial nerves II to XII intact, proximal upper limb weakness.
Skin: No rashes, petechiae. Normal color, no pallor or jaundice.
Psych: Calm, cooperative, proper hygiene
Course
<Ken Salecdo, DO - Last Filed: 01/28/24 18:10>
Orders/Labs/Results
Orders:
Orders
01/28/24 Breakfast
Regular
01/28/24 12:29
CMP [Comprehensive Metabolic Panel] Urgent
Complete Blood Count/With Diff Urgent
01/28/24 13:50
MethylPREDNISolone. [Solu-Medrol] 1,000 mg 0.9% Sodium Chloride 250 ml [Nss] 250 ml IV NOW
01/28/24 14:24
Acetylcholine Receptor Bind Ab [S] Urgent
01/28/24 14:46
Admit/Transfer Patient As Directed
Co-Sign Provider:
Level of Care: Inpatient admission
Assign to:: Medical/Surgical
Physician / Group: Ivette
Diagnosis: Myasthenia Gravis
Reason for Hospitalization: IVIG, Steroids
Expected length of stay greater than two midnights?: Yes
ELOS- Estimated Length of Stay in days: 3
I certify the patient meets the requirements for IP care: Yes
PRN Pain Medication Management As Directed
May give lesser potent ordered pain med per pt: Yes
preference::
Protocol:: Medication orders for pain may be administered in a
manner that supports deferring to patient preference
when the pt is:
- Requesting an ordered lesser potent pain medication.
Least to most potent pain medications are defined
as: acetaminophen < NSAID < tramadol < opioids
(morphine, oxycodone, hydromorphone).
- Requesting a lesser dose of the same medication IF
ORDERED.
- Requesting a less intrusive route of administration
if both routes are prescribed by the provider (PO <
IV).
01/28/24 15:04
Code Status As Directed
Resuscitation Status: Full Code
01/28/24 17:57
Acetaminophen [Tylenol] 650 mg PO Q6HPRN PRN
Immune Globulin Per Pharmacy [Immune Globulin- Pharmacy To Place] 60 gram IV DIRECTED ONE
MethylPREDNISolone. [Solu-Medrol] 1,000 mg 0.9% Sodium Chloride 250 ml [Nss] 250 ml IV Q24H
01/28/24 17:57
NEUROLOGY CONSULT Routine
Consulting Provider: Humberto Mao
Was physician already notified: Yes
Activity As Directed
Activity Level: Out of Bed-Early Mobility
With Assistance
I&O [Intake/ Output] As Directed
Frequency: q12h
Vital Signs As Directed
Frequency: Per unit guidelines
Ot Eval And Treat Routine
Pt Eval And Treat Routine
Activity Level: Out of Bed-Early Mobility
Speech Therapy Eval & Treat Routine
DX Deep Vein Thrombosis Video Routine
01/28/24 18:00
Enoxaparin Sodium [Lovenox] 40 mg SC QPM
pyridostigmine bromide 90 mg PO QID
01/29/24 06:00
Basic Metabolic Panel IN AM
Complete Blood Count/No Diff IN AM
Abnormal Lab Results
01/28/24
12:29
WBC 11.4 H 10^3/uL
(4.8-10.8)
RBC 4.13 L 10^6/uL
(4.20-5.40)
Plt Count 463 H 10^3/uL
(130-400)
Absolute Neuts (auto) 7.6 H 10^3/uL
(1.4-6.5)
Absolute Monos (auto) 0.7 H 10^3/uL
(0.1-0.6)
01/28/24 12:29
01/28/24 12:29
Vital Signs
Initial and Last Documented VS:
Initial Vital Signs
Temp Pulse Resp BP Pulse Ox
98.1 F 83 16 144/88 99
01/28/24 12:20 01/28/24 12:20 01/28/24 12:20 01/28/24 12:20 01/28/24 12:20
Last Documented Vital Signs
Temp Pulse Resp BP Pulse Ox
98.0 F 68 18 117/76 98
01/28/24 17:48 01/28/24 17:48 01/28/24 17:48 01/28/24 17:48 01/28/24 17:48
<Magnolia Stoddard MD, Resident - Last Filed: 01/28/24 15:53>
Orders/Labs/Results
Orders:
Orders
01/28/24 Breakfast
Regular
01/28/24 12:29
CMP [Comprehensive Metabolic Panel] Urgent
Complete Blood Count/With Diff Urgent
01/28/24 13:50
MethylPREDNISolone. [Solu-Medrol] 1,000 mg 0.9% Sodium Chloride 250 ml [Nss] 250 ml IV NOW
01/28/24 14:24
Acetylcholine Receptor Bind Ab [S] Urgent
01/28/24 14:46
Admit/Transfer Patient As Directed
Co-Sign Provider:
Level of Care: Inpatient admission
Assign to:: Medical/Surgical
Physician / Group: Ivette
Diagnosis: Myasthenia Gravis
Reason for Hospitalization: IVIG, Steroids
Expected length of stay greater than two midnights?: Yes
ELOS- Estimated Length of Stay in days: 3
I certify the patient meets the requirements for IP care: Yes
PRN Pain Medication Management As Directed
May give lesser potent ordered pain med per pt: Yes
preference::
Protocol:: Medication orders for pain may be administered in a
manner that supports deferring to patient preference
when the pt is:
- Requesting an ordered lesser potent pain medication.
Least to most potent pain medications are defined
as: acetaminophen < NSAID < tramadol < opioids
(morphine, oxycodone, hydromorphone).
- Requesting a lesser dose of the same medication IF
ORDERED.
- Requesting a less intrusive route of administration
if both routes are prescribed by the provider (PO <
IV).
01/28/24 15:04
Code Status As Directed
Resuscitation Status: Full Code
01/28/24 17:57
Acetaminophen [Tylenol] 650 mg PO Q6HPRN PRN
Immune Globulin Per Pharmacy [Immune Globulin- Pharmacy To Place] 60 gram IV DIRECTED ONE
MethylPREDNISolone. [Solu-Medrol] 1,000 mg 0.9% Sodium Chloride 250 ml [Nss] 250 ml IV Q24H
01/28/24 17:57
NEUROLOGY CONSULT Routine
Consulting Provider: Humberto Mao
Was physician already notified: Yes
Activity As Directed
Activity Level: Out of Bed-Early Mobility
With Assistance
I&O [Intake/ Output] As Directed
Frequency: q12h
Vital Signs As Directed
Frequency: Per unit guidelines
Ot Eval And Treat Routine
Pt Eval And Treat Routine
Activity Level: Out of Bed-Early Mobility
Speech Therapy Eval & Treat Routine
DX Deep Vein Thrombosis Video Routine
01/28/24 18:00
Enoxaparin Sodium [Lovenox] 40 mg SC QPM
pyridostigmine bromide 90 mg PO QID
01/29/24 06:00
Basic Metabolic Panel IN AM
Complete Blood Count/No Diff IN AM
Abnormal Lab Results
01/28/24
12:29
WBC 11.4 H 10^3/uL
(4.8-10.8)
RBC 4.13 L 10^6/uL
(4.20-5.40)
Plt Count 463 H 10^3/uL
(130-400)
Absolute Neuts (auto) 7.6 H 10^3/uL
(1.4-6.5)
Absolute Monos (auto) 0.7 H 10^3/uL
(0.1-0.6)
01/28/24 12:29
01/28/24 12:29
Vital Signs
Initial and Last Documented VS:
Initial Vital Signs
Temp Pulse Resp BP Pulse Ox
98.1 F 83 16 144/88 99
01/28/24 12:20 01/28/24 12:20 01/28/24 12:20 01/28/24 12:20 01/28/24 12:20
Last Documented Vital Signs
Temp Pulse Resp BP Pulse Ox
98.0 F 68 18 117/76 98
01/28/24 17:48 01/28/24 17:48 01/28/24 17:48 01/28/24 17:48 01/28/24 17:48
<Ken Salcedo, DO - Last Filed: 01/28/24 18:10>
MDM/Problems Addressed
Chronic conditions affecting care: Neurological disorder (Myasthenia gravis)
<Magnolia Stoddard MD, Resident - Last Filed: 01/28/24 15:53>
MDM/Problems Addressed
Differential Diagnosis Includes:
Myasthenia gravis
MDM/Problems Addressed:
Patient is hemodynamically stable
Started her on Solu-Medrol.
Admitting her for further management.
<Ken Salcedo, DO - Last Filed: 01/28/24 18:10>
*Pulse Oximetry
Patient hypoxic: no
Data Reviewed
Review of Other/Old Records Reveals: Discharge Summary (Discharge date 01/16/24 for acute hypoxemic and hypercapnic respiratory failure secondary to mediastinal mass)
Source: records
<Magnolia Stoddard MD, Resident - Last Filed: 01/28/24 15:53>
*Critical Care Note
Total Time (30-74mins, 75-104mins- exclusive of procedures): Not Applicable
<Ken Salcedo, DO - Last Filed: 01/28/24 18:10>
Patient Management
Discussion with other providers: Hospitalist and Junior Net Developer (Neurology recommends admission and 1 g Solu-Medrol)
Escalation/DeEscalation of care consider admission/obs:
Admit indicated
ED Attending Note
<Ken Salcedo, DO - Last Filed: 01/28/24 18:10>
ED Attending Note
Patient seen and examined by attending physician: Yes
I performed a history and physical exam of patient and discussed management with resident, I reviewed resident's note and agree with documented findings and plan of care.: Yes
ED Attending Note:
I have reviewed and agree with history and treatment plan by Dr. Magnolia Stoddard. My exam revealed
Physical Exam
General: Afebrile
Neck: supple. no meningeal signs. normal posterior pharynx
Heart: s1/s2 regular rate and rhythm, no murmur. equal radial
pulses.
HEENT: Pupils equal round reactive to light, EOMI
Lungs: no acute respiratory distress. clear bilaterally
Abdomen: normal bowel sounds. not tender. no CVAT
Neuro: alert and oriented. Upper proximal motor weakness, cranial nerves II through XII intact
Skin: no rash, sutures well-healed left chest
Psychiatric: well kept. interactive and cooperative
Extremities: no edema. no calf tenderness. negative homans. good distal pulses
Patient with myasthenia gravis exacerbation.
IV Solu-Medrol ordered. Admit to hospitalist.
<Magnolia Stoddard MD, Resident - Last Filed: 01/28/24 15:53>
-
Portions of this chart may have been created with voice recognition software.� Occasional wrong word or��sound alike� substitutions may have occurred due to the inherent limitations of voice recognition software.
Discharge Plan
Departure
Patient Disposition: Admit
Date of Disposition: 01/28/24
Time of Disposition: 14:13
Admit to: Telemetry
Presentation/result/management discussed w/ accepting MD/DO: Hospitalist
Patient with high blood pressure during this ER visit?: Yes
Condition: Good
Discharge Problem:
Myasthenia gravis
Interventions
Interventions:
*Risk Screen - Suicide Last Done: 01/28/24 16:47
*General Assessment Last Done: 01/28/24 12:20
*Neglect/Abuse Screening Last Done: 01/28/24 14:34
ED- Fall Risk Assessment Last Done: 01/28/24 17:29
*ED COVID-19 Vaccine History Last Done: 01/28/24 12:20
*Nursing Disposition Last Done: 01/28/24 17:29
ED- Cardiac Assessment Last Done: 01/28/24 14:37
ED- Neurological Assessment Last Done: 01/28/24 14:37
ED- Pulmonary Assessment Last Done: 01/28/24 14:37
Discharge Date and Time
Discharge Date/Time: 01/28/24 17:30
--- NOTE | 2024-01-28 14:42 | HPS.HSE ---
Addendum entered and electronically signed by Apollo Steele MD 01/28/24 17:23:
Pt with significantly worsening weakness due to Myasthenia Gravis to be admitted for IVIG and steroids
Pt seen independently and agree with PA note
Lungs clear
CV reg
Abd soft, nondistended
Ext no edema
Imp:progressive Myasthenia Gravis symptoms post Thymoma resection
P:IVIG
steroids
Full Code
Original Note:
Family Physician
-
Family Physician: Hui Kay
Chief Complaint
-
Persistent Weakness
History of Present Illness
Pt is a 43 yo F with PMH myasthenia gravis secondary to thymoma referred from neurology (Dr. Saunders) for persistent weakness. Pt was hospitalized from 01/08-01/15 for dysphagia and SOB, at which time she as found have a thymoma. She had surgical excision
of thymoma and was diagnosed with myasthenia gravis at that time. She was seen by Dr. Saunders today who referred her to the emergency department due to persistent weakness and upper extremity paresthesias. She denies shortness of breath.
Medical History
Past Medical History
Past Medical History: Reports Other
Additional Past Medical History:
Myasthenia Gravis secondary to Thymoma
Past Surgical History: Reports Other
Additional Past Surgical History:
Thymoma Resection
Benign Left Chest Wall Mass Excision
Social History
Tobacco: Smoker (Patient reports she has cut down to a few cigarettes per day)
Family History
Family History: Not pertinent
Allergies / Home Medications
Allergies reflects when Allergies were last updated in [facility].
Home Medications with original date entered in [facility]
Allergy/Medication List:
Allergies
Allergy/AdvReac Type Severity Reaction Status Date / Time
Botulinum Toxin AdvReac Severe weakness Verified 01/28/24 12:25
Home Medications
acetaminophen 325 mg tablet 650 mg (2 x 325 mg) PO Q6HPRN PRN mild pain,headache,temp >101F #0 tabs 01/16/24
pyridostigmine bromide 30 mg tablet 30 mg PO QID #120 tabs 01/16/24
gabapentin 100 mg capsule 100 mg PO TIDPRN PRN moderate pain 01/28/24
lidocaine 5 % topical patch 1 patch topical DAILYPRN PRN moderate pain 01/28/24
therapeutic multivitamin 1 tab PO DAILY 01/28/24
Review of Systems
-
A 12 point ROS was completed and negative except as noted: Yes
Physical Exam
Vital Signs
Vital Signs
Temp Pulse Resp BP Pulse Ox
98.1 F 65 14 100/79 97
01/28/24 12:20 01/28/24 14:30 01/28/24 14:30 01/28/24 14:25 01/28/24 14:37
Physical Exam
General: Comfortable and Conversant
HEENT: Anicteric and Moist mucous membranes
Respiratory: Clear and Non Labored Respirations
Cardiac: S1/S2 and Regular Rhythm
GI: Soft and Non Tender
Rectal: Deferred by Provider
Musculoskeletal: No Clubbing, No Cyanosis and No Edema
Skin: Warm and Dry
Neuro: Awake, Alert and Oriented
Psych: Calm
Laboratory Results
-
01/28/24 12:29
01/28/24 12:29
Laboratory Results
Total Bilirubin 0.5 mg/dl (0.2-1.3) 01/28/24 12:29
AST 18 U/L (14-36) 01/28/24 12:29
ALT 13 U/L (0-35) 01/28/24 12:29
Alkaline Phosphatase 48 U/L (38-126) 01/28/24 12:29
Data Reviewed
-
Lab Data: Labs Reviewed by me
Old Records: Reviewed
Impression/Plan
-
Myasthenia Gravis secondary to Thymoma
-Reviewed with Neurology
-Start IVIG and Methylprednisolone
-Increase Mestinon 90mg QID
Hx Thymoma s/p Resection 01/15/2024
DVT proph: Lovenox
Code Status: Full Code
[2024-01-28] MEDS: MESTINON 60 MG PO ×2 (18:50→22:02)
[2024-01-28] MEDS: GAMMAGARD 300 IV ×2 (20:18→23:51)
--- NOTE | 2024-01-28 21:38 | CON.NEURO4 ---
Consultation - Neurology 4
-
CONSULTING PHYSICIAN: Humberto Mao MD
REFERRING PHYSICIAN: Hospitalist
DICTATED BY: Humberto Mao MD
DATE/TIME OF REQUEST: 01/28/2024
DATE/TIME OF CONSULTATION: 01/28/2024 1730
Reason for Consultation: Weakness
History of Present Illness:
This is a 43 year old right handed female who has presented to the hospital with (chief complaint) of weakness. She gives ah/o recent onset of myasthenia who was initially hospitalized on 01/08 with generalized weakness, easy fatigability difficulty
chewing and breathing. Patient states that she has been having difficulty swallowing food, water and her medications and also has been having difficulty breathing. Patient's breathing was improved on BiPAP and she was admitted to the ICU for
further evaluation and treatment. The patient's BiPAP was now weaned to NC 2L. While eating a kind bar with nuts she had a choking incident where she felt that it was stuck in her throat. The symptoms were similar to what the patient was admitted.
Patient was given DuoNebs and patient improved posttreatment and was told to stick to softer foods. Patient was transitioned to softer foods after remaining n.p.o. a Dobbhoff tube was discussed with the patient but she was not agreeable after being
uncomfortable from the procedure. At this time patient's acetylcholine antibody receptor level readings came back as elevated to 27.5.
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 Patient was started on Mestinon 30 mg twice daily which led to marked improvement of the patient's symptoms and she was cleared for liquid diet.
Patient's upper extremity weakness was much improved and she was currently on room air.
Patient underwent cardiothoracic surgery for removal of the mediastinal mass on 01/13 for which was performed by Dr. Short. According to Dr. Short the mass was adherent to the left phrenic nerve however there was no evidence of invasion. The surgery
was successful patient continued to recover in the hospital for another day. Patient is acute dysphagia was improved the next day and also her upper extremity weakness was markedly improved. Patient was discharged on Mestinon 30mg QID.
Following discharge her limb weakness progressed and Mestinon was titrated to 60mg QID(7W-4P-6T-10P)
Past Medical History: Myasthenia
Surgical History: CT surgery Thymectomy
Family History: [place]
Social History: Lives at home with her family
Allergies: BOTOX
Home Medications: Mestinon 60 mg QID(8A-1P-6P- 10P)
Review of Symptoms:
Patient denies any fever, headache, chest pain, shortness of breath, GI or symptoms.
�Per the HPI.�All systems are reviewed negative except above.
Vital Signs: Temp 36.7 C Pulse 99 Resp18 BP108/71 Pulse Ox 96
Physical Exam:
The patient is afebrile, heart sounds S1 and S2 are (regular / irregular), and chest is clear to auscultation bilaterally.
- If not clear, describe.
Neurologic Examination:
The patient is awake, alert and oriented x 3. (He/She) is able to follow commands and answer questions appropriately. There is no aphasia or dysarthria. On cranial nerve assessment, pupils are 3 mm bilateral, round and reactive to light and
accommodation. Visual delarosa are full. Extraocular movements are intact. Facial sensations are intact and bilaterally symmetrical, there is no facial asymmetry. Hearing is intact bilaterally to normal conversation volume. Tongue palate and uvula
are midline. Sternocleidomastoid strengths are full bilaterally. Motor strengths are 3+/5 bilateral upper and lower extremities on medical research [place] scale. There is no drift or involuntary movement noted. Deep tendon reflexes are 2+ bilateral
upper and lower extremities and Babinski is absent bilaterally.
Sensations of pain, touch, temperature and vibration are intact and bilaterally symmetrical. There was no extinction noted on double simultaneous stimulation. Coordination is intact by finger to nose bilaterally. Romberg Negative. Gait Unsteady
Lab Results: Addendum
Neuro Imaging: NA
Impression:
(Mrs.) WILBER MENDEZ is a 43 year old F who has presented to the hospital with (symptoms/chief complaint) of generalized weakness secondary to myasthenia that had responded initially to Mestinon with recurrent exacerbated by surgery.
Recommendations:
1. IV Solumedrol 1000mg daily x 5 days
2. Mestinon 60mg QID
3. Continuous pulse oximetry
Discussed patient care with: Hospitalist
Allergies
-
Allergies
Allergy/AdvReac Type Severity Reaction Status Date / Time
Botulinum Toxin AdvReac Severe weakness Verified 01/28/24 12:25
Vital Signs and Labs
-
Vital Signs and Labs:
Vital Signs
Temp Pulse Resp BP Pulse Ox
36.7 C 99 18 108/71 96
01/28/24 19:56 01/28/24 19:56 01/28/24 19:56 01/28/24 19:56 01/28/24 19:56
Lab Results
01/28/24 12:29
01/28/24 12:29
Sodium 137 mmol/L (135-145) 01/28/24 12:29
Potassium 4.0 mmol/L (3.5-5.1) 01/28/24 12:29
BUN 7 mg/dl (7-17) 01/28/24 12:29
Glucose 95 mg/dl (70-99) 01/28/24 12:29
Calcium 9.8 mg/dl (8.4-10.2) 01/28/24 12:29
Medications
-
Active Medications
Generic Name Dose Route Start Last Admin
Trade Name Freq PRN Reason Stop Dose Admin
Acetaminophen 650 mg 01/28/24 17:57
Acetaminophen 325 Mg Tablet PO 02/25/24 17:56
Q6HPRN PRN
mild pain,headache,temp >101F
Enoxaparin Sodium 40 mg 01/28/24 18:00 01/28/24 18:52
Enoxaparin Sodium 40 Mg/0.4 Ml Syringe SC 02/25/24 17:59 Not Given
QPM TRAMAINE
Famotidine 20 mg 01/28/24 20:00
Famotidine 20 Mg Tablet PO 02/25/24 19:59
BID TRAMAINE
Methylprednisolone Sodium 258 mls @ 258 mls/hr 01/29/24 18:00
Succinate 1,000 mg/ Sodium IV 02/02/24 18:59
Chloride Q24H TRAMAINE
Immune Globulin 30 grams in 300 mls @ 0 mls/hr 01/28/24 18:00 01/28/24 20:18
Gammagard IV 02/01/24 19:01 300 mls
BID@1800,1900 TRAMAINE Administration
Protocol
Per Protocol
Pyridostigmine [place] 60 mg 01/28/24 19:00 01/28/24 18:50
Pyridostigmine 60 Mg Tablet PO 02/25/24 18:59 60 mg
QID TRAMAINE Administration
Sodium Chloride 0 flush 01/28/24 19:00
Sodium Chloride 0.9% (Flush) Syringe IV 02/25/24 18:59
PER PROTOCOL TRAMAINE
Home Medications
�Medication �Instructions �Recorded
acetaminophen 325 mg tablet 650 mg (2 x 325 mg) PO Q6HPRN PRN 01/16/24
mild pain,headache,temp >101F #0
tabs
pyridostigmine bromide 30 mg tablet 30 mg PO QID #120 tabs 01/16/24
gabapentin 100 mg capsule 100 mg PO TIDPRN PRN moderate pain 01/28/24
lidocaine 5 % topical patch 1 patch topical DAILYPRN PRN 01/28/24
moderate pain
therapeutic multivitamin 1 tab PO DAILY 01/28/24
[2024-01-28] MEDS: PEPCID 20 MG PO (22:02)
[2024-01-29] VITALS (7 sets, daily range): BP systolic 109–135; BP diastolic 65–78; PULSE 99; O2SAT 98; BMI 18.9
--- NOTE | 2024-01-29 04:05 | DOWNTIME ---
There was a [facility] Client Supervisor Boarding Downtime on 01/29/2024 from 0100 to 01/29/2024 at 0252. Downtime documentation of patient's care, including medication administrations, has been reconciled in the electronic record per guidelines. Refer to the
patient's paper chart under the miscellaneous tab to see printed paper medication records and downtime forms.
[2024-01-29 07:23] LABS: Hematocrit 33.5 % (37.0-47.0); Hemoglobin 11.8 g/dL (12.0-16.0); Mean Corp Hgb Conc. 35.2 g/dL (33.0-37.0); Mean Corpuscular Hgb 32.4 pg (27.0-31.0); Mean Platelet Volume 9.3 fL (7.4-10.4); Platelet Count 451 10^3/uL (130-400); Red Blood Cell Count 3.64 10^6/uL (4.20-5.40); Red Cell Dist. Width 12.7 % (11.5-14.5); White Blood Cell Count 20.9 10^3/uL (4.8-10.8)
[2024-01-29 07:29] LABS: Blood Urea Nitrogen 12 mg/dl (7-17); Calcium 9.7 mg/dl (8.4-10.2); Carbon Dioxide 23 mmol/L (22-30); Chloride 104 mmol/L (98-107); Estimated Creatinine Clearance > 125 ml/min; Glucose 146 mg/dl (70-99); Potassium 4.6 mmol/L (3.5-5.1); Sodium 134 mmol/L (135-145); eGFR > 60.00
[2024-01-29] MEDS: PEPCID 20 MG PO ×2 (08:04→20:31)
[2024-01-29] MEDS: MESTINON 60 MG PO ×4 (08:05→21:58)
--- NOTE | 2024-01-29 08:25 | PTOTSP ---
Speech Language Pathology
Pt seen for clinical bedside swallow evaluation. Pt seen by RESISTOR TESTING MACHINE OPERATOR on recent admission with MG diagnosis. Two VSEs completed that admission. First completed on 01/13/24 with recommendations for NPO with silent aspiration of thin liquids noted. Repeat
VSE completed 01/16/24 with improvement noted and recommendations for regular solids/thin liquids. Pt reported that a few days ago, she was having difficulty swallowing solids and liquids. She no longer notes this problem.
P.O. trials of puree, regular solids, and thin liquids provided. Pt typically taking very small sips of liquids at a time. Pt denied any globus sensation. Delayed coughing episode noted, unsure if related to P.O. intake.
No chest imaging completed this admission, but WBC increased from 11.4 to 20.9 overnight.
Recommend:
(1) VSE to rule out pharyngeal dysphagia given MG exacerbation and hx of silent aspiration with exacerbation
(2) Continue regular solids/thin liquids pending VSE
(3) Meds as tolerated
(4) RESISTOR TESTING MACHINE OPERATOR to continue to follow
--- NOTE | 2024-01-29 10:11 | W.PN.NEURO.1 ---
Documented by User: Rhonda Flowers NP 01/29/24 11:03
Today's Communication / Plan
-
.
Neuro Assessment/Plan
Assessment
This is a 43-year-old female with a PMH of myasthenia gravis s/p thymoma resection on 01/15/24 presented to on 01/28/24 from Neurology office after she was found to have significant proximal bilateral upper extremity, neck, and hip weakness on
outpatient evaluation.
-MRI brain 01/14/24: No acute intracranial abnormality noted. No evidence for intracranial metastasis. Probable benign calvarial lesions such as atypical arachnoid granulations or venous lakes, dermoid cyst or fibrous dysplasia, less likely
metastases/myeloma.
-MRI Cervical Spine 01/14/24: No suspicious lesions or enhancement.
Plan
-Continue 5 days total of Methylprednisone 1000mg IV and IVIG (today is day 2/5).
-Continue Mestinon 60mg QID.
-PT/OT/ST evaluations.
-Monitor daily PFT/NIF testing.
-Patient aware of Neurology advice to avoid Botox treatments indefinitely.
-DVT prophylaxis.
Subjective/Objective
Subjective Data
Date of Service: January 29, 2024
No acute events overnight. Patient reports no improvement in bilateral upper extremity strength today. She denies any headache, dizziness, diplopia, vision changes, speech/swallow difficulty, numbness, chest pain, palpitations, and shortness of
breath.
Objective Data
Vital Signs
Temp Pulse Resp BP Pulse Ox
97.8 F 82 17 119/65 98
01/29/24 07:00 01/29/24 07:00 01/29/24 07:00 01/29/24 07:00 01/29/24 07:00
Lab Results
01/29/24 06:05
01/29/24 06:05
Sodium 134 mmol/L (135-145) L 01/29/24 06:05
Potassium 4.6 mmol/L (3.5-5.1) 01/29/24 06:05
BUN 12 mg/dl (7-17) 01/29/24 06:05
Glucose 146 mg/dl (70-99) H 01/29/24 06:05
Calcium 9.7 mg/dl (8.4-10.2) 01/29/24 06:05
Patient Allergies
Botulinum Toxin Adverse Reaction (Severe, Verified 01/28/24 12:25)
weakness
Review of Systems
-
History Source: Patient
EENT: Negative Blurry Vision, Decreased Vision or Swallowing Difficulty
Respiratory: Negative Cough or Trouble Breathing
Cardiac: Negative Chest Pain or Palpitations
Abdomen/GI: Negative Nausea
Neuro: Weakness; Negative Dizzy, Headache, Numbness, Ataxia, Tremors or Speech Problem
Physical Exam
-
General: Well Developed, Well Nourished and No Apparent Distress
Eyes: No Ptosis and PERRLA
HEENT: Normocephalic and Atraumatic
Neck: Full Range of Motion
Respiratory: No Dyspnea
GI: Non-distended
Extremities: No Clubbing, No Cyanosis and No Edema
Extended Neurological Exam
Mood & Affect: Anxious
Attention Span & Concentration: Awake, Alert and Interactive
Memory: Unremarkable and Able to Recall
Tremor: Hand Tremor Absent and Head Tremor Absent
Involuntary Movement: None
Speech: Quality Unremarkable, Quantity Unremarkable and Rate of Production Unremarkable
Cranial Nerve II: Left Eye: Pupillary Reactivity Unremarkable, Pupillary Size Unremarkable and Visual Rocha Intact
Cranial Nerve II: Right Eye: Pupillary Reactivity Unremarkable, Pupillary Size Unremarkable and Visual Rocha Intact
Cranial Nerves III, IV, : Extraocular Movement: Extraocular Movement Full in all Directions
Cranial Nerve V: Facial Sensation: Intact to Light Touch
Cranial Nerve VII: Facial Symmetry: Normal Facial Symmetry
Cranial Nerve VIII: Hearing: Unremarkable Hearing to Normal Conversational Volume
Cranial Nerves IX, X: Palate Movement: Palate Elevation Symmetric
Cranial Nerve XI: Shoulder Shrug: Unremarkable
Cranial Nerve XII: Tongue Protusion: Midline
Muscle Strength, Overall: Reduced (neck flexion 3/5, neck extension 4+/5. Shoulder extension 3/5, b/l hip extension 4/5)
Pronator Drift: No Drift in Upper Extremities and No Drift in Lower Extremities
Coordination: Kccmua-[id number]-wuyrre Testing Unremarkable
Babinski Sign: Absent Bilaterally
Data Reviewed
-
Labs: Report Reviewed
Reviewed with: Physician and Patient

Documented by User: Humberto Mao MD 01/29/24 12:31
Today's Communication / Plan
-
43 yr. old lady with h/o myasthenia on Mestinon 60 mg QID responding well to Solumedrol and IVIg.
--- NOTE | 2024-01-29 11:02 | RESPNOTE ---
Respiratory: NIF/MIP -40 cmH2O good patient effort.
--- NOTE | 2024-01-29 13:28 | W.PN.HOSP.TC ---
Today's Communication/Plan
-
continue steroids, IVIG
Assessment / Plan
Assessment / Plan
Myasthenia Gravis secondary to Thymoma
s/p Thymoma resection
-Reviewed with Neurology
-Start IVIG and Methylprednisolone, doses to be adjusted by neurology
-Increase Mestinon to 60mg QID
There was discussion as to whether pt should have a VSE. Currently there is no evidence of Bulbar weakness and no symptoms of aspiration, as such, Dr Mao does not believe necessary
with rising glu on steroids, will need to watch for hyperglycemia
Leukocytosis most likely from steroids, will follow
11.4-->20.9k
Hx Thymoma s/p Resection 01/15/2024
DVT proph: Lovenox
Code Status: Full Code
Anticipated Discharge: > 48 hours
Subjective/Interval History
-
Date of Service: January 29, 2024
States has no difficulty swallowing
Objective Data
-
Labs:
Laboratory Results
01/29/24
06:05
WBC 20.9 H
Hgb 11.8 L
Hct 33.5 L
Plt Count 451 H
Sodium 134 L
Potassium 4.6
Chloride 104
Carbon Dioxide 23
BUN 12
Creatinine 0.6
Glucose 146 H
Calcium 9.7
Vital Signs:
Vital Signs
Temp Pulse Resp BP Pulse Ox
97.8 F 82 17 119/65 98
01/29/24 07:00 01/29/24 07:00 01/29/24 07:00 01/29/24 07:00 01/29/24 07:00
I&O
01/28/24 01/29/24 01/30/24
06:59 06:59 06:59
Intake Total 1338 / 1338
Balance 1338 / 1338
Review of Systems
-
History Source: Patient
Constitutional: Reports No Symptoms
EENT: Reports No Symptoms Reported
Respiratory: Reports No Symptoms
Cardiac: Reports No Symptoms
Abdomen/GI: Reports No Symptoms
Breast: Reports No Symptoms
Musculoskeletal: Reports No Symptoms
Neuro: Reports Weakness (weakness may have slightly improved since admisison)
Physical Exam
-
General: Well Developed, Well Nourished and No Apparent Distress
Respiratory: Clear to Auscultation and Non Labored Respirations
Cardiac: Regular Rhythm and S1/S2
GI: Soft, Nontender and Nondistended
Musculoskeletal: No Clubbing, No Cyanosis and No Edema
Neuro: Awake, Alert, Oriented, AO x 3 and Other (walking around unit with PT)
--- NOTE | 2024-01-29 14:18 | CM ---
Met with pt at bedside
Reports lives with her 2 sons (6yo, 16yo) in a 2 story town home with 6 steps to enter with FF set-up
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 Currently not working or driving - does have family support
DME - none
SNF/HH - no past hx. Has had outpatient PT
PCP - Dr Hui Conteh
Pharm - [facility]
CM will be available for d/c needs
Plan - anticipate home no needs
[2024-01-29] MEDS: SOLU-MEDROL 258 MG IV (16:50)
--- NOTE | 2024-01-29 17:38 | PTCARENOTE ---
verified pt's true weight. Over by almost 100 lbs. Actual weight is 117. GammaGard was verified to be dose for 59kg which is based on pt's ideal weight, not actual weight, per Sonu in Pharmacy. Proceed with administration per protocol
[2024-01-29] MEDS: GAMMAGARD 300 IV (17:44)
--- NOTE | 2024-01-29 19:14 | PTCARENOTE ---
Approx 7pm, pt Sam was found sitting on floor, against her bed; she slid off her bed and onto her buttocks on floor. She was trying to pull her socks on. She denies injury/pain and did not strike her head. She was able to get to her feet with
the help of two nurses. Vital signs stable. Assessment for injury done. negative. Bed alarm will be instituted for pt safety. PT was assisted with bedside commode and returned to bed. States her neck feels very weak. Unrelated to incident, feels
like it might be the medicines in general. Dr Steele notified and he will in turn notify Neuro
[2024-01-30 06:46] LABS: Hematocrit 32.3 % (37.0-47.0); Hemoglobin 11.4 g/dL (12.0-16.0); Mean Corp Hgb Conc. 35.3 g/dL (33.0-37.0); Mean Corpuscular Hgb 33.1 pg (27.0-31.0); Mean Corpuscular Volume 93.9 fL (81.0-99.0); Mean Platelet Volume 9.3 fL (7.4-10.4); Platelet Count 444 10^3/uL (130-400); Red Blood Cell Count 3.44 10^6/uL (4.20-5.40); Red Cell Dist. Width 13.2 % (11.5-14.5); White Blood Cell Count 23.8 10^3/uL (4.8-10.8)
[2024-01-30 07:08] LABS: Blood Urea Nitrogen 14 mg/dl (7-17); Calcium 9.5 mg/dl (8.4-10.2); Carbon Dioxide 28 mmol/L (22-30); Chloride 102 mmol/L (98-107); Estimated Creatinine Clearance 101 ml/min; Glucose 142 mg/dl (70-99); Potassium 4.4 mmol/L (3.5-5.1); Sodium 139 mmol/L (135-145); eGFR > 60.00
[2024-01-30 07:15] LABS: % Basophils 0.1 % (0-2); % Immature Granulocytes 0.7 % (0-0.5); % Lymphocytes 5.2 % (20.5-51.1); % Monocytes 3.1 % (1.7-9.3); % Neutrophils 90.9 % (42.2-75.2); Absolute Immature Granulocytes 0.2 10^3/uL (0-0.05); Absolute Lymphocytes 1.2 10^3/uL (1.2-3.4); Absolute Monocytes 0.7 10^3/uL (0.1-0.6); Absolute Neutrophils 21.6 10^3/uL (1.4-6.5); Nucleated Red Blood Cells % 0 %
[2024-01-30 07:39] VITALS: BP 115/69
[2024-01-30] MEDS: MESTINON 60 MG PO ×4 (08:36→21:44)
[2024-01-30] MEDS: PEPCID 20 MG PO ×2 (08:36→20:50)
--- NOTE | 2024-01-30 09:00 | PTOTSP ---
Speech Language Pathology
Pt seen for dysphagia tx. VSE was recommended after evaluation yesterday. Neuro did not feel test was necessary and it was not ordered. Pt stated she is feeling like she has no energy. Pt with difficulty visually fixating on CERTIFIED HISTOLOGIC TECHNICIAN, which was not
noted yesterday, and endorsed blurry vision. Difficulty raising arms. RN reported significant coughing with pills this morning. Provided sips of liquids with immediate coughing. Cough was weak, and pt reported she didn't have cough strength. Pt
with worsening compared to 01/28. Notified MD, neuro, and RN to assess pt. Continue to recommend VSE, especially with worsening swallow function.
Recommend:
(1) VSE
(2) Would hold P.O. pending VSE
(3) CERTIFIED HISTOLOGIC TECHNICIAN to continue to follow
--- NOTE | 2024-01-30 09:16 | W.PN.NEURO.1 ---
Documented by User: Rhonda Flowers NP 01/30/24 13:25
Today's Communication / Plan
-
.
Neuro Assessment/Plan
Assessment
This is a 43-year-old female with a PMH of myasthenia gravis s/p thymoma resection on 01/15/24 presented to on 01/28/24 from Neurology office after she was found to have significant proximal bilateral upper extremity, neck, and hip weakness on
outpatient evaluation.
-MRI brain 01/14/24: No acute intracranial abnormality noted. No evidence for intracranial metastasis. Probable benign calvarial lesions such as atypical arachnoid granulations or venous lakes, dermoid cyst or fibrous dysplasia, less likely
metastases/myeloma.
-MRI Cervical Spine 01/14/24: No suspicious lesions or enhancement.
Plan
-Continue 5 days total of Methylprednisone 1000mg IV (Day 3/5 today).
-Per Dr. Mao, discontinue IVIG now as patient had more than recommended dose on day of admission, equaling 3 days of dosing total already.
-Continue Mestinon 60mg QID.
-PT/OT/ST evaluations.
-VSE today.
-Monitor daily PFT/NIF testing.
-Patient aware of Neurology advice to avoid Botox treatments indefinitely.
-DVT prophylaxis.
Subjective/Objective
Subjective Data
Date of Service: January 30, 2024
Patient reports a significant worsening of weakness following her dose of IVIG last evening, to the point that she slid out of bed onto the floor because she couldn't stand. This morning, she was noted to be profoundly weak, having difficulty
holding her head up, unable to lift her arm, garbled speech and a cough. She took her AM Mestinon dose around 0835 and 30 minutes later her weakness drastically improved. Her speech still sounds intermittently garbled. She denies any headache,
dizziness, vision changes, numbness, chest pain, palpitations, and shortness of breath.
Objective Data
Vital Signs
Temp Pulse Resp BP Pulse Ox
97.9 F 82 16 115/69 96
01/30/24 07:39 01/30/24 07:39 01/30/24 07:39 01/30/24 07:39 01/30/24 07:39
Lab Results
01/30/24 05:55
01/30/24 05:55
Sodium 139 mmol/L (135-145) 01/30/24 05:55
Potassium 4.4 mmol/L (3.5-5.1) 01/30/24 05:55
BUN 14 mg/dl (7-17) 01/30/24 05:55
Glucose 142 mg/dl (70-99) H 01/30/24 05:55
Calcium 9.5 mg/dl (8.4-10.2) 01/30/24 05:55
Patient Allergies
Botulinum Toxin Adverse Reaction (Severe, Verified 01/28/24 12:25)
weakness
Review of Systems
-
History Source: Patient
EENT: Swallowing Difficulty; Negative Blurry Vision or Decreased Vision
Respiratory: Cough; Negative Trouble Breathing
Cardiac: Negative Chest Pain or Palpitations
Abdomen/GI: Negative Nausea
Neuro: Weakness and Speech Problem; Negative Dizzy, Headache, Numbness, Ataxia or Tremors
Physical Exam
-
General: No Apparent Distress
Eyes: No Ptosis and PERRLA
HEENT: Normocephalic and Atraumatic
Neck: Full Range of Motion
Respiratory: No Dyspnea
GI: Non-distended
Extremities: No Clubbing, No Cyanosis and No Edema
Psych: Anxious
Extended Neurological Exam
Mood & Affect: Anxious
Attention Span & Concentration: Awake, Alert, Interactive and No Difficulty with 2 Step Request
Memory: Unremarkable and Able to Recall
Tremor: Hand Tremor Absent and Head Tremor Absent
Involuntary Movement: None
Speech: Quantity Unremarkable, Rate of Production Unremarkable and Other (garbled at times)
Cranial Nerve II: Left Eye: Pupillary Reactivity Unremarkable, Pupillary Size Unremarkable and Visual Rocha Intact
Cranial Nerve II: Right Eye: Pupillary Reactivity Unremarkable, Pupillary Size Unremarkable and Visual Rocha Intact
Cranial Nerves III, IV, : Extraocular Movement: Extraocular Movement Full in all Directions
Cranial Nerve V: Facial Sensation: Intact to Light Touch
Cranial Nerve VII: Facial Symmetry: Normal Facial Symmetry
Cranial Nerve VIII: Hearing: Unremarkable Hearing to Normal Conversational Volume
Cranial Nerves IX, X: Palate Movement: Palate Elevation Symmetric
Cranial Nerve XII: Tongue Protusion: Midline
Muscle Strength, Overall: Reduced Throughout (neck ext/flex 4/5, shoulder ext 4/5, hip flexion 4/5)
Pronator Drift: No Drift in Upper Extremities and No Drift in Lower Extremities
Coordination: [id number] Testing Unremarkable
Data Reviewed
-
Labs: Report Reviewed
Reviewed with: Physician and Patient
Medications
-
Active Medications
Generic Name Dose Route Start Last Admin
Trade Name Freq PRN Reason Stop Dose Admin
Acetaminophen 650 mg 01/28/24 17:57
Acetaminophen 325 Mg Tablet PO 02/25/24 17:56
Q6HPRN PRN
mild pain,headache,temp >101F
Enoxaparin Sodium 40 mg 01/28/24 18:00 01/29/24 17:43
Enoxaparin Sodium 40 Mg/0.4 Ml Syringe SC 02/25/24 17:59 Not Given
QPM TRAMAINE
Famotidine 20 mg 01/28/24 20:00 01/30/24 08:36
Famotidine 20 Mg Tablet PO 02/25/24 19:59 20 mg
BID TRAMAINE Administration
Methylprednisolone Sodium 258 mls @ 258 mls/hr 01/29/24 17:00 01/29/24 16:50
Succinate 1,000 mg/ Sodium IV 02/01/24 17:59 258 mls
Chloride Q24H TRAMAINE Administration
Pyridostigmine [place] 60 mg 01/28/24 19:00 01/30/24 13:00
Pyridostigmine 60 Mg Tablet PO 02/25/24 18:59 60 mg
QID TRAMAINE Administration
Sodium Chloride 0 flush 01/28/24 19:00
Sodium Chloride 0.9% (Flush) Syringe IV 02/25/24 18:59
PER PROTOCOL TRAMAINE
Home Medications
�Medication �Instructions �Recorded
acetaminophen 325 mg tablet 650 mg (2 x 325 mg) PO Q6HPRN PRN 01/16/24
mild pain,headache,temp >101F #0
tabs
pyridostigmine bromide 30 mg tablet 30 mg PO QID #120 tabs 01/16/24
gabapentin 100 mg capsule 100 mg PO TIDPRN PRN moderate pain 01/28/24
lidocaine 5 % topical patch 1 patch topical DAILYPRN PRN 01/28/24
moderate pain
therapeutic multivitamin 1 tab PO DAILY Supplement 01/28/24

Documented by User: Humberto Mao MD 01/31/24 11:42
Today's Communication / Plan
-
43-year-old lady with history of myasthenia gravis doing on Mestinon 60 mg 4 times a day.
Plan:
Continue IVIG 30 g for 1 day
Continue Solu-Medrol 1000 mg daily 08/12
[2024-01-30 10:02] VITALS: BMI 18.6
--- NOTE | 2024-01-30 11:00 | PTOTSP ---
Speech Language Pathology
VIDEOFLUOROSCOPIC SWALLOWING EXAMINATION (VSE) completed. Overall, pt with mild oropharyngeal dysphagia. Pharyngeal residue noted with all textures, significant with increased viscosities. Penetration intermittently noted with thin liquids. Pt
is at risk for aspiration. Suspect related to myasthenia gravis exacerbation with prognosis for improvement good.
Recommend:
(1) Regular solids/thin liquids
(2) Aspiration precautions: sit upright, slow rate, single sips, intermittent throat clear/reswallow, frequent sips of liquids during meals, frequent dry swallows
(3) Meds 1 at a time whole with water with throat clear following
(4) Consider outpatient dysphagia tx if dysphagia does not completely resolve, as she reported incomplete resolution of dysphagia symptoms after last admission
(5) SANITIZER to continue to follow
--- NOTE | 2024-01-30 11:02 | PN.CDI ---
CDI
- -
CDI:
Physician Documentation Request
Admit Date: 01/28/24 15:20
Dear Doctor Ivtete,
Please review the following and provide your response in the progress notes.
Clinical Indicators:
Height: 5 ft 6 in
Weight: 115 lb 4.8oz
BMI:18.6
Other Clinical Notes: Documented per ED, ' Patient has trouble brushing her hair, and swallowing solid food and her symptoms worsen by the end of the day.'
If possible, please provide an associated diagnosis related to the abnormal BMI, such as:
BMI < or = to 19
Underweight
Cachectic
- Other
Use of terms such as suspected, likely, concern for, or probable (associated with a specific diagnosis that is being evaluated, monitored, or treated as if it exists) are acceptable and can be coded in the inpatient setting, when documented at the
time of discharge.
Thank you,
Emily Ortega RN
CDI Specialist
[facility]
Please use your independent medical judgment in providing your response.
--- NOTE | 2024-01-30 12:09 | W.PN.HOSP.TC ---
Addendum entered and electronically signed by Apollo Steele MD 01/30/24 12:23:
will check Urine with leukocytosis, though no fever or symptoms of UTI
Original Note:
Today's Communication/Plan
-
continue steroids, IVIG
Pt instructed to be very careful when waking and okay to ask for assistance
Assessment / Plan
Assessment / Plan
Myasthenia Gravis secondary to Thymoma
s/p Thymoma resection
-Reviewed with Neurology
-Started IVIG and Methylprednisolone, doses to be adjusted by neurology
-Increase Mestinon to 60mg QID
VSE done today: The patient swallowing function was evaluated fluoroscopically and with videotape during the ingestion of several consistencies of barium, in conjunction with the speech pathologist. Brief imaging of the thoracic esophagus is
unremarkable.
Thin liquid barium by spoon: Penetration. No aspiration.
Thin liquid barium by cup/straw: Deep penetration to the level of the cords with consecutive sips via a straw. No aspiration.
[place] consistency barium by spoon: No penetration or aspiration.
[place] consistency barium by cup/straw: No penetration or aspiration.
Honey consistency barium by spoon: No penetration or aspiration.
Barium pudding by spoon: No penetration or aspiration. Vallecular residuals.
Solid barium by cookie: Deep penetration. No aspiration. Vallecular residuals.
with rising glu on steroids, will need to watch for hyperglycemia
Leukocytosis most likely from steroids, will follow
11.4-->20.9-->23.8k
BMI 18.6
Pt is thin, but not really underweight, Albumin is 4.4. This is not an issue
Glu 142
tolerating high dose steroids
Hx Thymoma s/p Resection 01/15/2024
DVT proph: Lovenox
Code Status: Full Code
Reviewed with Dr. Mao
Anticipated Discharge: > 48 hours
Subjective/Interval History
-
Date of Service: January 30, 2024
Pt concerned that not feeling much better yet
Objective Data
-
Labs:
Laboratory Results
01/30/24
05:55
WBC 23.8 H
Hgb 11.4 L
Hct 32.3 L
Plt Count 444 H
Sodium 139
Potassium 4.4
Chloride 102
Carbon Dioxide 28
BUN 14
Creatinine 0.5 L
Glucose 142 H
Calcium 9.5
Vital Signs:
Vital Signs
Temp Pulse Resp BP Pulse Ox
97.9 F 82 16 115/69 96
01/30/24 07:39 01/30/24 07:39 01/30/24 07:39 01/30/24 07:39 01/30/24 07:39
I&O
01/29/24 01/30/24 01/31/24
06:59 06:59 06:59
Intake Total 1338 / 1338 240 / 240
Balance 1338 / 1338 240 / 240
Review of Systems
-
History Source: Patient
Constitutional: Reports No Symptoms
EENT: Reports No Symptoms Reported
Respiratory: Reports No Symptoms
Cardiac: Reports No Symptoms
Abdomen/GI: Reports No Symptoms
Musculoskeletal: Reports No Symptoms
Neuro: Reports Weakness (weakness may have slightly improved since admission)
Physical Exam
-
General: Well Developed, Well Nourished and No Apparent Distress
Respiratory: Clear to Auscultation and Non Labored Respirations
Cardiac: Regular Rhythm and S1/S2
GI: Soft, Nontender and Nondistended
Musculoskeletal: No Clubbing, No Cyanosis and No Edema
Neuro: Awake, Alert, Oriented, AO x 3 and Other (walking around room without difficulty)
[2024-01-30 14:52] LABS: Urine Albumin Negative (Neg - Trace); Urine Bilirubin Negative (Negative); Urine Character Clear (Clear); Urine Color Straw; Urine Glucose Negative (Negative); Urine Ketone Negative (Negative); Urine Leukocyte Negative (Negative); Urine Nitrite Negative (Negative); Urine Occult Blood Negative (Negative); Urine Specific Gravity 1.005 (<1.030); Urine Urobilinogen Negative (Neg - 1+)
[2024-01-30 15:22] VITALS: BP 125/76
[2024-01-30] MEDS: SOLU-MEDROL 258 MG IV (17:12)
[2024-01-30 23:49] VITALS: BP 115/67
[2024-01-31 08:00] VITALS: BP 122/76
[2024-01-31] MEDS: MESTINON 60 MG PO ×4 (08:16→21:25)
[2024-01-31] MEDS: PEPCID 20 MG PO ×2 (08:16→21:26)
[2024-01-31 08:45] LABS: % Basophils 0.1 % (0-2); % Immature Granulocytes 0.8 % (0-0.5); % Monocytes 5.2 % (1.7-9.3); % Neutrophils 85.9 % (42.2-75.2); Absolute Immature Granulocytes 0.1 10^3/uL (0-0.05); Absolute Lymphocytes 1.3 10^3/uL (1.2-3.4); Absolute Monocytes 0.8 10^3/uL (0.1-0.6); Absolute Neutrophils 13.8 10^3/uL (1.4-6.5); Hematocrit 33.1 % (37.0-47.0); Hemoglobin 11.7 g/dL (12.0-16.0); Mean Corp Hgb Conc. 35.3 g/dL (33.0-37.0); Mean Corpuscular Hgb 31.5 pg (27.0-31.0); Mean Platelet Volume 9.3 fL (7.4-10.4); Nucleated Red Blood Cells % 0 %; Platelet Count 459 10^3/uL (130-400); Red Blood Cell Count 3.72 10^6/uL (4.20-5.40); Red Cell Dist. Width 13.1 % (11.5-14.5); White Blood Cell Count 16.1 10^3/uL (4.8-10.8)
[2024-01-31 09:24] LABS: Blood Urea Nitrogen 16 mg/dl (7-17); Calcium 9.5 mg/dl (8.4-10.2); Carbon Dioxide 29 mmol/L (22-30); Chloride 100 mmol/L (98-107); Estimated Creatinine Clearance 100 ml/min; Glucose 119 mg/dl (70-99); Potassium 4.3 mmol/L (3.5-5.1); Sodium 139 mmol/L (135-145); eGFR > 60.00
--- NOTE | 2024-01-31 10:41 | PTOTSP ---
Addendum entered and electronically signed by ST Alissa 01/31/24 10:44:
*SEMICONDUCTOR ASSEMBLER service to continue to follow up at the acute care level to train dysphagia exercises and ensure compliance with safe swallowing strategies in an effort to reduce risk of adverse sequela.
Original Note:
Speech Pathology Dysphagia Treatment
Dysphagia treatment completed. Reviewed diet level and safe swallowing strategies. Initiated dysphagia exercises per improving strength and efficiency of swallow. Written cues of all exercises, safe swallowing strategies, and diet level
recommendations left within patient's room for continued carryover.
SEMICONDUCTOR ASSEMBLER service to continue to follow up at the acute care level to train dysphagia exercises and ensure compliance with safe swallowing strategies in an effort to decreased adverse sequela.
Recommendations Remain:
(1) Regular solids/thin liquids
(2) Aspiration precautions: sit upright, slow rate, single sips, intermittent throat clear/reswallow, frequent sips of liquids during meals, frequent dry swallows
(3) Meds 1 at a time whole with water with throat clear following
(4) Consider outpatient dysphagia tx if dysphagia does not completely resolve, as she reported incomplete resolution of dysphagia symptoms after last admission
(5) SEMICONDUCTOR ASSEMBLER to continue to follow to provide dysphagia treatment
--- NOTE | 2024-01-31 11:34 | W.PN.HOSP.TC ---
Today's Communication/Plan
-
continue meds per Neuro
Assessment / Plan
Assessment / Plan
Assessment:
Myasthenia Gravis secondary to Thymoma
- s/p thymoma resection 01/14
- s/p IVIG
- continue IVSM
- continue Mestinon
- follow Neuro recs
- speech eval/VSE noted; aspiration precautions
Steroid induced leukocytosis
BMI 18.6
- Pt is thin, but not really underweight, Albumin is 4.4. This is not an issue
DVT ppx: Lovenox
Code: Full
Anticipated Discharge: Within 24 hours
Subjective/Interval History
-
Date of Service: January 31, 2024
feels more energy, less weakness today
denies any other complaints
Objective Data
-
Labs:
Laboratory Results
01/31/24
07:52
WBC 16.1 H
Hgb 11.7 L
Hct 33.1 L
Plt Count 459 H
Sodium 139
Potassium 4.3
Chloride 100
Carbon Dioxide 29
BUN 16
Creatinine 0.5 L
Glucose 119 H
Calcium 9.5
Vital Signs:
Vital Signs
Temp Pulse Resp BP Pulse Ox
97.7 F 70 16 122/76 95
01/31/24 08:00 01/31/24 08:00 01/31/24 08:00 01/31/24 08:00 01/31/24 08:00
I&O
01/30/24 01/31/24 02/01/24
06:59 06:59 06:59
Intake Total 240 / 240 1620 / 1620
Balance 240 / 240 1620 / 1620
Physical Exam
-
General: No Apparent Distress
HEENT: Normocephalic
Respiratory: Negative Wheezes
Cardiac: Regular Rhythm and S1/S2
GI: Soft
Genito-urinary: No Costovertebral Tender
Neuro: AO x 3
Psych: Calm
Data Reviewed
-
Total Time Spent with Patient (in minutes): 42
Labs: Labs Reviewed by me
--- NOTE | 2024-01-31 11:51 | CM ---
Case management following for discharge planning
Chart reviewed. spoke with pt
Remains on IVIG/steroids
Will have ride at discharge
Plan - anticipate home no needs
[2024-01-31 15:59] VITALS: BP 112/70
[2024-01-31] MEDS: SOLU-MEDROL 258 MG IV (16:02)
[2024-01-31 16:48] LABS: Vitamin B12 492 pg/ml (239-931)
[2024-01-31 23:30] VITALS: BP 108/64
[2024-02-01 07:00] VITALS: BP 120/64
[2024-02-01 07:15] LABS: Hematocrit 31.6 % (37.0-47.0); Hemoglobin 11.5 g/dL (12.0-16.0); Mean Corp Hgb Conc. 36.4 g/dL (33.0-37.0); Mean Corpuscular Hgb 32.1 pg (27.0-31.0); Mean Corpuscular Volume 88.3 fL (81.0-99.0); Mean Platelet Volume 9.1 fL (7.4-10.4); Platelet Count 406 10^3/uL (130-400); Red Blood Cell Count 3.58 10^6/uL (4.20-5.40); Red Cell Dist. Width 12.6 % (11.5-14.5); White Blood Cell Count 17.7 10^3/uL (4.8-10.8)
[2024-02-01] MEDS: PEPCID 20 MG PO (07:37)
[2024-02-01] MEDS: MESTINON 60 MG PO ×2 (07:37→12:31)
[2024-02-01 07:38] LABS: Blood Urea Nitrogen 13 mg/dl (7-17); Calcium 9.4 mg/dl (8.4-10.2); Carbon Dioxide 29 mmol/L (22-30); Chloride 102 mmol/L (98-107); Estimated Creatinine Clearance 100 ml/min; Glucose 128 mg/dl (70-99); Potassium 4.5 mmol/L (3.5-5.1); Sodium 138 mmol/L (135-145); eGFR > 60.00
--- NOTE | 2024-02-01 07:52 | RESPNOTE ---
Respiratory: NIF completed -[id number] good patient effort.
--- NOTE | 2024-02-01 09:39 | W.PN.HOSP.TC ---
Today's Communication/Plan
-
dc to home today
Assessment / Plan
Assessment / Plan
Assessment:
Myasthenia Gravis secondary to Thymoma
- s/p thymoma resection 01/14
- s/p IVIG
- complete solu-medrol IV dose
- steroid taper per Dr. Mao 60mg x 2 days, 40mg x 2 days, 20mg x 2 days, then 10mg daily until seen by neurology OP)
- continue Mestinon 60mg QID (can take additional 30mg in evening
- speech eval/VSE noted; aspiration precautions
Steroid induced leukocytosis
BMI 18.6
- Pt is thin, but not really underweight, Albumin is 4.4. This is not an issue
DVT ppx: Lovenox
Code: Full
More than 30 minutes spent in discharge including
Final examination of the patient
Summarizing hospital stay
Instructions for continuing care to all relevant caregivers
Preparation of discharge records, prescriptions, and referral forms
Total time spent (in minutes): 41
Anticipated Discharge: Today
Subjective/Interval History
-
Date of Service: February 01, 2024
no overnight events
Objective Data
-
Labs:
Laboratory Results
02/01/24
06:47
WBC 17.7 H
Hgb 11.5 L
Hct 31.6 L
Plt Count 406 H
Sodium 138
Potassium 4.5
Chloride 102
Carbon Dioxide 29
BUN 13
Creatinine 0.6
Glucose 128 H
Calcium 9.4
Vital Signs:
Vital Signs
Temp Pulse Resp BP Pulse Ox
97.8 F 74 18 120/64 100
02/01/24 07:00 02/01/24 07:00 02/01/24 07:00 02/01/24 07:00 02/01/24 07:49
I&O
01/31/24 02/01/24 02/02/24
06:59 06:59 06:59
Intake Total 1620 / 1620 1620 / 1620
Balance 1620 / 1620 1620 / 1620
Physical Exam
-
General: No Apparent Distress
HEENT: Normocephalic and Atraumatic
Respiratory: Clear to Auscultation; Negative Wheezes or Rales
Cardiac: Regular Rhythm and S1/S2
GI: Soft
Genito-urinary: No Costovertebral Tender
Musculoskeletal: No Edema
Neuro: AO x 3
Hematologic / Lymphatic: No Lymphadenopathy
Psych: Calm
Data Reviewed
-
Total Time Spent with Patient (in minutes): 42
Labs: Labs Reviewed by me
--- NOTE | 2024-02-01 09:44 | W.DS.TRANS ---
DC Summary - Acidity Tester
-
Discharge Instructions:
Discharge Diagnosis/Procedures Myasthenia gravis flare after thymus surgery
Diet Regular
Activity As tolerated
Other Services OT,PT
Instructions:
Stand-Alone Forms:
Changes to Home Medications: No
Discharge Medications:
DC Medications w/original date entered in [facility]
acetaminophen 325 mg tablet 650 mg (2 x 325 mg) PO Q6HPRN PRN mild pain,headache,temp >101F #0 tabs 01/16/24
gabapentin 100 mg capsule 100 mg PO TIDPRN PRN moderate pain 01/28/24
lidocaine 5 % topical patch 1 patch topical DAILYPRN PRN moderate pain 01/28/24
therapeutic multivitamin 1 tab PO DAILY Supplement 01/28/24
famotidine 20 mg tablet 20 mg PO BID #60 tabs 02/01/24
prednisone 10 mg tablet 10 mg PO DIRECTED #100 tabs 02/01/24
pyridostigmine bromide 60 mg tablet 60 mg PO QID #120 tabs 02/01/24
Home Medication Changes
Pending Results: No
Total time spent discharging patient (in min): 42
[2024-02-01] MEDS: MESTINON 30 MG PO (13:19)
[2024-02-01] MEDS: SOLU-MEDROL 258 MG IV (13:53)
[2024-02-01 15:00] VITALS: BP 132/75
[2024-02-01 19:53] LABS: Acetylcholine Receptor Bind Ab 39.3 nmol/L (0.0-0.4)
== END 2024-02-01 16:46 | disposition home or self-care (01) | DRG 57 ==
LOC: 3 WEST ACU 15:20
PROVIDERS: Clinical Nurse Specialist Acute Care; Emergency Medicine; Physician Assistant Medical; ADMITTING PHYSICIAN Internal Medicine; ATTENDING PHYSICIAN Internal Medicine; CONSULT PHYSICIAN Psychiatry & Neurology Neurology; EMERGENCY PHYSICIAN Emergency Medicine; FAMILY PHYSICIAN Internal Medicine
PROC: 30233S1 Transfusion of Nonautologous Globulin into Peripheral Vein, Percutaneous Approach (ICD-10-PCS; 2024-01-28)
DX: G70.01 Myasthenia gravis with (acute) exacerbation (principal); F17.210 Nicotine dependence, cigarettes, uncomplicated; D72.829 Elevated white blood cell count, unspecified; T38.0X5A Adverse effect of glucocorticoids and synthetic analogues, initial encounter; Z98.890 Other specified postprocedural states; Z85.238 Personal history of other malignant neoplasm of thymus; Z79.899 Other long term (current) drug therapy
CPT/HCPCS: 71046; 74230; 80048; 80053; 81003; 82607; 85025; 85027; 86041; 92526; 92610; 92611; 96365; 97110; 97161; 97166; 99285; J1569